=== PATIENT | female | born 1940 | race Caucasian/White ===

== ENCOUNTER 2016-12-01 08:18 | Observation (INO) | payer MEDICARE ==
[2016-12-01] MEDS ORDERED: SODIUM CHLORIDE 0.9% 500 ML IV STA (08:34)
--- NOTE | 2016-12-01 08:36 | ED ---
General Adult HPI - General Chief complaint: Neuro Symptoms/Deficit Stated complaint: lt sided numbness Time Seen by Provider: 12/01/16 08:20 Source: patient, RN notes reviewed Mode of arrival: EMS Limitations: physical limitation - History of Present Illness Initial comments: This is a 75-year-old female has past medical history significant for stroke. Patient comes in today because she says when she woke up both of her legs were numb feeling. Patient states she could feel but they felt different. Patient states she was able to and leg but she felt a little off balance on her feet. Patient states she was able to walk however. Patient denies any upper extremity weakness or numbness patient denies any visual disturbance patient denies any slurred speech. Patient denies any droopiness of her face when she looked in the mirror. Patient denies any chest pain or palpitations per patient denies any difficulty breathing shortness breath per patient denies any recent fever chills or cough. Patient denies abdominal pain patient denies any nausea vomiting diarrhea. Patient denies any recent injury or trauma. - Related Data Home Medications Medication Instructions Recorded Confirmed Cholecalciferol [Vitamin D3] 5,000 unit PO DAILY 11/06/16 12/01/16 Cyanocobalamin [Vitamin B-12] 500 mcg PO DAILY 11/06/16 12/01/16 Pyridoxine [Vitamin B-6] 50 mg PO DAILY 11/06/16 12/01/16 Vit A,C & E/Lutein/Minerals 1 tab PO DAILY 11/06/16 12/01/16 [Ocuvite with Lutein Tablet] Previous Rx's Medication Instructions Recorded Aspirin 325 mg PO DAILY tab 11/09/16 Atorvastatin [Lipitor] 40 mg PO DAILY #30 tab 11/09/16 Carvedilol [Coreg] 6.25 mg PO BID-W/MEALS #60 tab 11/09/16 Famotidine [Pepcid] 20 mg PO BID #60 tab 11/09/16 Lisinopril [Zestril] 5 mg PO DAILY #30 tab 11/09/16 Allergies Allergy/AdvReac Type Severity Reaction Status Date / Time No Known Allergies Allergy Verified 12/01/16 09:00 Review of Systems ROS Statement: Those systems with pertinent positive or pertinent negative responses have been documented in the HPI. ROS Other: All systems not noted in ROS Statement are negative. Past Medical History Past Medical History: Coronary Artery Disease (CAD), CVA/TIA, Hyperlipidemia, Hypertension, Myocardial Infarction ([place]), Osteoarthritis (OA), Vascular Disorder Additional Past Medical History / Comment(s): borderline diabetic, UTI PAST SEPTICEMIA, HIATAL HERNIA, FELL OUT A CHAIR 2 WEEKS AGO HIT BACK OF HEAD ON FLOOR. Last Myocardial Infarction Date:: 1999 History of Any Multi-Drug Resistant Organisms: None Reported Past Surgical History: Adenoidectomy, Cholecystectomy, Coronary Bypass/CABG, Heart Catheterization, Joint Replacement, Tonsillectomy, Tubal Ligation Additional Past Surgical History / Comment(s): TRIPLE VESSEL CABG, RT SHOULDER HEMIARTHROPLASTY, LT CAROTI ENDART,CANDY CATARACTS, EGD/COLONOSCOPY."INJ IN LT EYE " Past Anesthesia/Blood Transfusion Reactions: No Reported Reaction Past Psychological History: No Psychological Hx Reported Additional Psychological History / Comment(s): PT IS ALERT AND INDEPENDANT, RETIRE FROM, [employer](DIETARY DEPT) AND WORKS AT THE [employer]. Smoking Status: Former smoker Past Alcohol Use History: None Reported Additional Past Alcohol Use History / Comment(s): STARTED SMOKING AT AGE 26(1965 ), QUIT 2007- I PPD. Past Drug Use History: None Reported - Past Family History Father Family Medical History: CVA/TIA, Hypertension, Neurologic Disorder (cva) Additional Family Medical History / Comment(s): STROKES RAN ON DAD'S SIDE OF FAMILY Mother Family Medical History: COPD Additional Family Medical History / Comment(s): EMPHYSEMA Sister(s) Family Medical History: Cancer Additional Family Medical History / Comment(s): "FEMALE CANCER" General Exam - General Exam Comments Initial Comments: GENERAL: Patient is well-developed and well-nourished. Patient is nontoxic and well- hydrated and is in no acute distress. ENT: Neck is soft and supple. No significant lymphadenopathy is noted. Oropharynx is clear. Moist mucous membranes. Neck has full range of motion without eliciting any pain. EYES: The sclera were anicteric and conjunctiva were pink and moist. Extraocular movements were intact and pupils were equal round and reactive to light. Eyelids were unremarkable. PULMONARY: Unlabored respirations. Good breath sounds bilaterally. No audible rales rhonchi or wheezing was noted. CARDIOVASCULAR: There is a regular rate and rhythm without any murmurs gallops or rubs. Femoral pulses are equal bilaterally ABDOMEN: Soft and nontender with normal bowel sounds. No palpable organomegaly was noted. There is no palpable pulsatile mass. SKIN: Skin is clear with no lesions or rashes and otherwise unremarkable. NEUROLOGIC: Patient is alert and oriented x3. Cranial nerves II through XII are grossly intact. Motor and sensory are also intact. Normal speech, volume and content. Symmetrical smile. MUSCULOSKELETAL: Normal extremities with adequate strength and full range of motion. No lower extremity swelling or edema. No calf tenderness. LYMPHATICS: No significant lymphadenopathy is noted PSYCHIATRIC: Normal psychiatric evaluation. Limitations: physical limitation Course Vital Signs 12/01/16 12/01/16 08:22 10:03 Temperature 97.3 F L Pulse Rate 61 61 Respiratory 16 18 Rate Blood Pressure 186/73 137/76 O2 Sat by Pulse 97 100 Oximetry Medical Decision Making - Medical Decision Making EKG shows sinus bradycardia 55 bpm. It was 120 QRS is 80 QT interval is 440 QTC is 420 per patient's EKG shows no ST segment elevation or depression or T wave abnormalities are noted Patient has urinary tract infection so I started on Rocephin. I spoke with the patient about her symptoms she continues to feel too weak we stood her up at the bedside and she was very wobbly and felt as though she's been followed. Patient stated she lives alone she does not feel comfortable going home being this unsteady. I spoke with the primary medical care doctor and then I admitted the patient wrote admitting orders - Lab Data Result diagrams: 12/01/16 08:44 12/01/16 08:44 Lab Results 12/01/16 12/01/16 12/01/16 Range/Units 08:44 08:44 08:44 WBC 9.2 (3.8-10.6) k/uL RBC 4.26 (3.80-5.40) m/uL Hgb 13.0 (11.4-16.0) gm/dL Hct 38.8 (34.0-46.0) % MCV 91.1 (80.0-100.0) fL MCH 30.6 (25.0-35.0) pg MCHC 33.6 (31.0-37.0) g/dL RDW 12.7 (11.5-15.5) % Plt Count 223 (150-450) k/uL Neutrophils % 61 % Lymphocytes % 21 % Monocytes % 6 % Eosinophils % 9 % Basophils % 1 % Neutrophils # 5.7 (1.3-7.7) k/uL Lymphocytes # 2.0 (1.0-4.8) k/uL Monocytes # 0.5 (0-1.0) k/uL Eosinophils # 0.8 H (0-0.7) k/uL Basophils # 0.1 (0-0.2) k/uL PT (9.0-12.0) sec INR (<1.1) APTT (22.0-30.0) sec Sodium 145 (137-145) mmol/L Potassium 4.6 (3.5-5.1) mmol/L Chloride 109 H (98-107) mmol/L Carbon Dioxide 22 (22-30) mmol/L Anion Gap 14 mmol/L BUN 32 H (7-17) mg/dL Creatinine 1.14 H (0.52-1.04) mg/dL Est GFR (MDRD) Af Amer 56 (>60 ml/min/1.73 sqM) Est GFR (MDRD) Non-Af 47 (>60 ml/min/1.73 sqM) Glucose 124 H (74-99) mg/dL Calcium 10.5 H (8.4-10.2) mg/dL Total Bilirubin 0.6 (0.2-1.3) mg/dL AST 23 (14-36) U/L ALT 29 (9-52) U/L Alkaline Phosphatase 69 (38-126) U/L Total Creatine Kinase 43 (30-135) U/L CK-MB (CK-2) 0.6 (0.0-2.4) ng/mL CK-MB (CK-2) Rel Index 1.4 Troponin I <0.012 (0.000-0.034) ng/mL Total Protein 7.1 (6.3-8.2) g/dL Albumin 4.1 (3.5-5.0) g/dL Urine Color Urine Appearance (Clear) Urine pH (5.0-8.0) Ur Specific [place] (1.001-1.035) Urine Protein (Negative) Urine Glucose (UA) (Negative) Urine Ketones (Negative) Urine Blood (Negative) Urine Nitrate (Negative) Urine Bilirubin (Negative) Urine Urobilinogen (<2.0) mg/dL Ur Leukocyte Esterase (Negative) Urine WBC (0-5) /hpf Ur Squamous Epith Cells (0-4) /hpf Urine Mucus (None) /hpf 12/01/16 12/01/16 Range/Units 08:44 10:49 WBC (3.8-10.6) k/uL RBC (3.80-5.40) m/uL Hgb (11.4-16.0) gm/dL Hct (34.0-46.0) % MCV (80.0-100.0) fL MCH (25.0-35.0) pg MCHC (31.0-37.0) g/dL RDW (11.5-15.5) % Plt Count (150-450) k/uL Neutrophils % % Lymphocytes % % Monocytes % % Eosinophils % % Basophils % % Neutrophils # (1.3-7.7) k/uL Lymphocytes # (1.0-4.8) k/uL Monocytes # (0-1.0) k/uL Eosinophils # (0-0.7) k/uL Basophils # (0-0.2) k/uL PT 9.9 (9.0-12.0) sec INR 1.0 (<1.1) APTT 23.7 (22.0-30.0) sec Sodium (137-145) mmol/L Potassium (3.5-5.1) mmol/L Chloride (98-107) mmol/L Carbon Dioxide (22-30) mmol/L Anion Gap mmol/L BUN (7-17) mg/dL Creatinine (0.52-1.04) mg/dL Est GFR (MDRD) Af Amer (>60 ml/min/1.73 sqM) Est GFR (MDRD) Non-Af (>60 ml/min/1.73 sqM) Glucose (74-99) mg/dL Calcium (8.4-10.2) mg/dL Total Bilirubin (0.2-1.3) mg/dL AST (14-36) U/L ALT (9-52) U/L Alkaline Phosphatase (38-126) U/L Total Creatine Kinase (30-135) U/L CK-MB (CK-2) (0.0-2.4) ng/mL CK-MB (CK-2) Rel Index Troponin I (0.000-0.034) ng/mL Total Protein (6.3-8.2) g/dL Albumin (3.5-5.0) g/dL Urine Color Light Yellow Urine Appearance Cloudy H (Clear) Urine pH 5.5 (5.0-8.0) Ur Specific [place] 1.012 (1.001-1.035) Urine Protein Trace H (Negative) Urine Glucose (UA) Negative (Negative) Urine Ketones Negative (Negative) Urine Blood Negative (Negative) Urine Nitrate Negative (Negative) Urine Bilirubin Negative (Negative) Urine Urobilinogen <2.0 (<2.0) mg/dL Ur Leukocyte Esterase Large H (Negative) Urine WBC 17 H (0-5) /hpf Ur Squamous Epith Cells 4 (0-4) /hpf Urine Mucus Rare H (None) /hpf Disposition Clinical Impression: Generalized weakness, Urinary tract infection, Unsteady gait Disposition: ADMITTED IP TO THIS [facility] Time of Disposition: 11:49
[2016-12-01 09:07] LABS: Basophils # (A) 0.1 k/uL (0-0.2); Basophils % (A) 1 %; CH 30.6; CHCM 33.7; Eosinophils # (A) 0.8 k/uL (0-0.7); Eosinophils % (A) 9 %; HCT 38.8 % (34.0-46.0); HDW 2.32; Luc % (Auto) 2; Lymphocytes % (A) 21 %; MCH 30.6 pg (25.0-35.0); MCHC 33.6 g/dL (31.0-37.0); MCV 91.1 fL (80.0-100.0); Mean Platelet Volume 7.2; Monocytes # (A) 0.5 k/uL (0-1.0); Monocytes % (A) 6 %; Neutrophils # (A) 5.7 k/uL (1.3-7.7); Neutrophils % (A) 61 %; RBC 4.26 m/uL (3.80-5.40); RDW 12.7 % (11.5-15.5); WBC 9.2 k/uL (3.8-10.6); WBC (Perox) 9.48
[2016-12-01 09:10] LABS: Partial Thromboplastin Time 23.7 sec (22.0-30.0); Prothrombin Time 9.9 sec (9.0-12.0)
[2016-12-01 09:20] LABS: Calcium 10.5 mg/dL (8.4-10.2); Potassium 4.6 mmol/L (3.5-5.1); Total Bilirubin 0.6 mg/dL (0.2-1.3); Total Protein 7.1 g/dL (6.3-8.2)
[2016-12-01 09:34] LABS: Creatine Kinase 43 U/L (30-135)
--- NOTE | 2016-12-01 09:35 | CT ---
EXAMINATION TYPE: CT brain wo con DATE OF EXAM: 12/01/2016 9:27 AM COMPARISON: NONE INDICATION: bilateral leg numbness, recent CVA DLP: 1072.3 mGycm, Automated exposure control for dose reduction was used. CONTRAST: None. CT of the brain is performed utilizing 3 mm thick sections through the posterior fossa and 3 mm thick sections through the remaining calvarium. Study is performed within 24 hours of arrival to the hosp ital. No abnormal hyperdensity is present to suggest an acute intracranial hemorrhage. No mass lesion is evident. No acute infarcts are evident. Periventricular white matter hypodensity is present, likely on the bas is of microvascular ischemic change. Right frontal lobe subcortical infarct, old but appears to been interval change from 11/06/2016. Ventricles and sulci are appropriate for the patient age. Paranasal sinuses and mastoid air cells within the [id number] are clear. IMPRESSIONS: 1. Chronic periventricular white matter ischemic changes. 2. Old appearing subcortical infarct right frontal lobe appears been interval finding from 11/06/2016.
[2016-12-01 09:47] LABS: Creatine Kinase MB 0.6 ng/mL (0.0-2.4); Troponin I <0.012 ng/mL (0.000-0.034)
--- NOTE | 2016-12-01 10:20 | XR ---
EXAMINATION TYPE: XR chest 2V DATE OF EXAM: 12/01/2016 9:53 AM COMPARISON: Prior chest x-ray to October 2016 HISTORY: Altered mental status, cerebrovascular accident, dizziness TECHNIQUE: Frontal and lateral views of the chest are obtained. FINDINGS: There is no focal air space opacity, pleural effusion, or pneumothorax seen. The cardiac silhouette size is within normal limits. The patient is post median sternotomy. Dominant lung volum e may be indicative of underlying COPD. There are coronary artery calcifications and postoperative ch anges to the right humerus status post shoulder arthroplasty on the right. There are overlying cardia c leads and the patient is rotated. Exam is expiratory. The osseous structures are intact. IMPRESSION: No acute cardiopulmonary process.
[2016-12-01 11:23] LABS: Appearance,Urine Cloudy (Clear); Bilirubin,Urine Negative (Negative); Glucose,Urine (UA) Negative (Negative); Ketones,Urine Negative (Negative); Leukocyte Esterase,Urine Large (Negative); Mucus,Urine Rare /hpf; Nitrite,Urine Negative (Negative); PH, Urine 5.5 (5.0-8.0); Particle Count 52785; Protein,Urine Trace (Negative); Specific Gravity,Urine 1.012 (1.001-1.035); Squamous Epithelial Cell,Urine 4 /hpf (0-4); UA Billing (MACRO vs. MICRO) MICRO; Urobilinogen,Urine <2.0 mg/dL (<2.0); WBC,Urine 17 /hpf (0-5)
[2016-12-01] MEDS ORDERED: SODIUM CHLORIDE 0.9% 1,000 ML IV ONE (11:51)
[2016-12-01] MEDS ORDERED: LISINOPRIL 5 MG TAB PO SCH (13:45)
[2016-12-01] MEDS: ALPRAZolam 0.25 MG TAB PO SCH ×3 (14:42→20:19)
[2016-12-01] MEDS: CARVEDILOL 6.25 MG TAB PO SCH ×2 (14:42→20:18)
[2016-12-01] MEDS ORDERED: LISINOPRIL 5 MG TAB PO STA (16:22)
[2016-12-01] MEDS ORDERED: hydrALAZINE HCL 20 MG/ML 1 ML VIAL IVP PRN (16:24)
--- NOTE | 2016-12-01 16:25 | P.HPIM ---
History of Present Illness H&P Date: 12/01/16 Chief Complaint: Bilateral lower extremity weakness This is a pleasant 75 year old female patient of Dr Stapleton, with prior history if Hypertension, CAD with prior CABG, IGT, prior CVa right side hemiparesis in 1998 requiring left carotid endarterectomy. Patient had recent hospitalization October 2016 for acute left-sided CVA. At that time, patient had taken herself off all her medication for the past year and had not been following up with her physician. She was seen in consultation by Dr. Jon. Patient was discharged with very slight left arm and left leg weakness. MRI revealed acute area of infarct involving the right frontal lobe and scattered small foci of infarction in the right hemisphere suggesting possibility of cardioembolic stroke. Carotid ultrasound revealed left carotid stenosis of 50-69%. Echocardiogram EF 55-60%. GUERITA was performed that showed mildly dilated left atrium with normal left atrial appendage with no thrombus. Mild to moderate atherosclerotic changes in the descending thoracic aorta mild mitral and trace pulmonic regurgitation. No evidence of shunting across the interatrial atrial septum. Patient was discharged home. Patient now presents to [facility] emergency center complaining of fever and chills yesterday. She is complaining of her legs being weak and unable to move them. She states she got up to the bathroom this morning and she could hardly move. She states she had to hold onto the wall and when she got into the bathroom she had a hard time getting up off the toilet. She ended up walking out into the living room with difficulty and sat down. She tried to stand to recheck weakness in her leg and it was still very weak and she came into [facility] emergency center. Patient does state that she has been very anxious that she spent home as she is afraid that she will have a worsening stroke and no one will find her. She denies having any nausea vomiting, chest pain shortness of breath cough. She states her appetite has not been good but she has not had any weight loss. She denies any frequency of urination or change in the color of her urination burning or pain with urination. She states she has also had loss of bowel control but her urine control is fine. She states she is having headaches since the stroke in October but has never had this before. She denies any problems with her speech, swallowing, arms. Patient was placed on the observation unit and consult with Dr. Jon requested. Patient does have an appointment with Dr. Jon on . Urinalysis was cloudy, protein trace, leukoesterase large, WBC 17. Review of Systems All systems: negative Constitutional: Denies chills, Denies fever Eyes: denies blurred vision, denies pain Ears, nose, mouth and throat: Denies headache, Denies sore throat Cardiovascular: Denies chest pain, Denies shortness of breath Respiratory: Denies cough Gastrointestinal: Denies abdominal pain, Denies diarrhea, Denies nausea, Denies vomiting Genitourinary: Denies dysuria, Denies hematuria, Denies urgency, Denies urinary frequency Musculoskeletal: Denies myalgias Integumentary: Denies pruritus, Denies rash Neurological: Reports weakness, Denies numbness Psychiatric: Reports anxiety, Denies depression Endocrine: Denies fatigue, Denies weight change Past Medical History Past Medical History: Coronary Artery Disease (CAD), CVA/TIA, Hyperlipidemia, Hypertension, Myocardial Infarction ([place]), Osteoarthritis (OA), Vascular Disorder Additional Past Medical History / Comment(s): borderline diabetic, UTI PAST SEPTICEMIA, HIATAL HERNIA, FELL OUT A CHAIR 2 WEEKS AGO HIT BACK OF HEAD ON FLOOR. Last Myocardial Infarction Date:: 1999 History of Any Multi-Drug Resistant Organisms: None Reported Past Surgical History: Adenoidectomy, Cholecystectomy, Coronary Bypass/CABG, Heart Catheterization, Joint Replacement, Tonsillectomy, Tubal Ligation Additional Past Surgical History / Comment(s): TRIPLE VESSEL CABG, RT SHOULDER HEMIARTHROPLASTY, LT CAROTI ENDART,CANDY CATARACTS, EGD/COLONOSCOPY."INJ IN LT EYE " Past Anesthesia/Blood Transfusion Reactions: No Reported Reaction Past Psychological History: No Psychological Hx Reported Additional Psychological History / Comment(s): PT IS ALERT AND INDEPENDANT, RETIRE FROM, [employer]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 Smoking Status: Former smoker Past Alcohol Use History: None Reported Additional Past Alcohol Use History / Comment(s): STARTED SMOKING AT AGE 26(1965 ), QUIT 2006- I PPD. Past Drug Use History: None Reported - Past Family History Father Family Medical History: CVA/TIA, Hypertension, Neurologic Disorder (cva) Additional Family Medical History / Comment(s): STROKES RAN ON DAD'S SIDE OF FAMILY Mother Family Medical History: COPD Additional Family Medical History / Comment(s): EMPHYSEMA Sister(s) Family Medical History: Cancer Additional Family Medical History / Comment(s): "FEMALE CANCER" Medications and Allergies Home Medications Medication Instructions Recorded Confirmed Type Cholecalciferol [Vitamin D3] 5,000 unit PO DAILY 11/06/16 12/01/16 History Cyanocobalamin [Vitamin B-12] 500 mcg PO DAILY 11/06/16 12/01/16 History Pyridoxine [Vitamin B-6] 50 mg PO DAILY 11/06/16 12/01/16 History Vit A,C & E/Lutein/Minerals 1 tab PO DAILY 11/06/16 12/01/16 History [Ocuvite with Lutein Tablet] Allergies Allergy/AdvReac Type Severity Reaction Status Date / Time No Known Allergies Allergy Verified 12/01/16 09:00 Physical Exam Vitals: Vital Signs Temp Pulse Resp BP Pulse Ox 12/01/16 10:03 61 18 137/76 100 12/01/16 08:22 97.3 F L 61 16 186/73 97 Intake and Output 11/30/16 12/01/16 12/01/16 22:59 06:59 14:59 Other: Weight 68.039 kg Patient Weight 12/02/16 06:59 Weight 68.039 kg Gen: This is a 75-year-old female. She is sitting on the stretcher in the emergency center and appears to be in no acute distress. HEENT: Head is atraumatic, normocephalic. Pupils equal, round. Sclerae is anicteric. NECK: Supple. No JVD. No lymphadenopathy. No thyromegaly. LUNGS: Clear to auscultation. No wheezes or rhonchi. No intercostal retractions. HEART: Regular rate and rhythm. No murmur. ABDOMEN: Soft. Bowel sounds are present. No masses. No tenderness. EXTREMITIES: No pedal edema. No calf tenderness. NEUROLOGICAL: Patient is awake, alert and oriented x3. Cranial nerves 2 through 12 are grossly intact. Results CBC & Chem 7: 12/01/16 08:44 12/01/16 08:44 Labs: Abnormal Lab Results - Last 24 Hours (Table) 12/01/16 12/01/16 12/01/16 Range/Units 08:44 08:44 10:49 Eosinophils # 0.8 H (0-0.7) k/uL Chloride 109 H (98-107) mmol/L BUN 32 H (7-17) mg/dL Creatinine 1.14 H (0.52-1.04) mg/dL Glucose 124 H (74-99) mg/dL Calcium 10.5 H (8.4-10.2) mg/dL Urine Appearance Cloudy H (Clear) Urine Protein Trace H (Negative) Ur Leukocyte Esterase Large H (Negative) Urine WBC 17 H (0-5) /hpf Urine Mucus Rare H (None) /hpf Thrombosis Risk Factor Assmnt - DVT/VTE Prophylaxis DVT/VTE Prophylaxis: Pharmacologic Prophylaxis ordered Assessment and Plan Plan: 1. Bilateral lower extremity weakness with loss of bowel control, fever and chills. Patient placed in the observation unit. Consult with Dr. Jon. Continue neuro checks. 2. Recent acute CVA with history or previous CVA. Continue aspirin 325 mg daily and Lipitor 40 mg daily. 2. CAD with prior CABG 3 vessel disease in 1999, patient will be started on low dose beta jose and statins. fasting lipid panel obtained. 3. 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 4. Generalized anxiety disorder most likely contributing to lower extremity weakness as patient has fear of having stroke and not being found at home as she lives alone. Xanax 0.25 mg scheduled. Patient is planning to get [employer] at home. 5. Hypertensive cardiovascular disease, uncontrolled. Continue Coreg 6.25 mg twice daily. Lisinopril will be increased from 5 mg daily to 10 mg daily, hydralazine 10 mg IV push every 6 hours as needed 6. B6 supplementation, patient will be monitored for b6 toxicity, paresthesias and numbness identified peripherally. 7. CKD 3. 8. BMI 25 9. Hypercalcemia. Intact parathyroid hormone normal. GI prophylaxis with pepcid DVT prophylaxis with lovenox and scd. Discharge plan: Home with [facility] Patient placed on the observation unit. Impression and plan of care have been directed as dictated by the signing physician. Chandrika Helton nurse practitioner acting as scribe for signing physician. Cc: Dr. Kapil Stapleton Time with Patient: Greater than 30
[2016-12-01] MEDS ORDERED: ACETAMINOPHEN TAB 325 MG TAB PO PRN (16:27)
--- NOTE | 2016-12-01 19:06 | P.CNNES ---
History of Present Illness Consult date: 12/01/16 Reason for Consult: Patient with unsteady gait and falls. History of Present Illness: This patient is a 75-year-old right-handed white female who was recently seen in October 2016 for acute right frontal lobe stroke. She underwent an extensive evaluation for her stroke as she had evidence on MRI of a large right frontal lobe infarct with small scattered acute ischemic changes in the right hemisphere. She was seen by cardiology and underwent a GUERITA procedure which revealed only mild dilation of the left atrium with normal left appendage. No evidence of thrombus or PFO. Patient was placed on aspirin therapy and was discharged. She was making good recovery until the last week when she has been having low-grade fever. She states that on the day of admission she tried to stand and ambulate to the bathroom and felt very weak in her legs. She was brought into the emergency room at [facility] for further evaluation. She was seen in the ER by Dr. Castillo. She was sent for a computed tomography scan of the brain which revealed chronic periventricular white matter ischemic changes. There was an old infarct in the right frontal lobe consistent with her history of recent stroke. No other acute changes were noted. Laboratory testing revealed her to have evidence of a urinary tract infection as well as dehydration. She was started on antibiotic therapy and admitted to the hospital. Since admission patient has noted improvement with her leg weakness. She states she was able to ambulate in her room without any difficulty today. She has been concerned about her recent stroke but has been advised by cardiology that they found no evidence for cardioembolic stroke in her history or exam findings. The patient does suffer from anxiety disorder as well. She has been using Xanax for management. She has been anxious about her stroke diagnosis and also may be causing increased stress for her. We have recommended that she continue treatment of the underlying urinary tract infection. Hopefully this will show more improvement with her muscle weakness and generalized malaise. She has a history of previous UTI a few years ago which produce similar symptoms. The patient is now admitted and neurology has been consulted for further evaluation and recommendations. Review of Systems Constitutional: Denies chills, Denies fever Eyes: denies blurred vision, denies pain Ears, nose, mouth and throat: Denies headache, Denies sore throat Cardiovascular: Denies chest pain, Denies shortness of breath Respiratory: Denies cough Gastrointestinal: Denies abdominal pain, Denies diarrhea, Denies nausea, Denies vomiting Genitourinary: Denies dysuria, Denies hematuria Musculoskeletal: Denies myalgias Integumentary: Denies pruritus, Denies rash Neurological: Denies numbness, Denies weakness Psychiatric: Denies anxiety, Denies depression Endocrine: Denies fatigue, Denies weight change Past Medical History Past Medical History: Coronary Artery Disease (CAD), Chest Pain / Angina, CVA/ TIA, Hyperlipidemia, Hypertension, Myocardial Infarction ([place]), Osteoarthritis ( OA), Renal Disease, Vascular Disorder Additional Past Medical History / Comment(s): CVAs with last CVA being 11/06/16, diet controlled diabetic, "silent" [place], UTI PAST SEPTICEMIA, HIATAL HERNIA, CKD stage III. Last Myocardial Infarction Date:: unkn History of Any Multi-Drug Resistant Organisms: None Reported Past Surgical History: Adenoidectomy, Cholecystectomy, Coronary Bypass/CABG, Heart Catheterization, Joint Replacement, Tonsillectomy, Tubal Ligation Additional Past Surgical History / Comment(s): GUERITA, TRIPLE VESSEL CABG, RT SHOULDER HEMIARTHROPLASTY, LT CAROTI ENDART,CANDY CATARACTS with lens implants, EGD/COLONOSCOPY. Past Anesthesia/Blood Transfusion Reactions: No Reported Reaction Past Psychological History: No Psychological Hx Reported Additional Psychological History / Comment(s): PT IS ALERT AND INDEPENDANT, RETIRE FROM, [employer](DIETARY DEPT) AND WORKS AT THE [employer]. Smoking Status: Former smoker Past Alcohol Use History: None Reported Additional Past Alcohol Use History / Comment(s): STARTED SMOKING AT AGE 26(1966 ), QUIT 2006- I PPD. Past Drug Use History: None Reported - Past Family History Father Family Medical History: CVA/TIA, Hypertension, Neurologic Disorder Additional Family Medical History / Comment(s): Father of a CVA at the age of 49 yrs. STROKES RAN ON DAD'S SIDE OF FAMILY Mother Family Medical History: COPD Additional Family Medical History / Comment(s): EMPHYSEMA Sister(s) Family Medical History: Cancer Additional Family Medical History / Comment(s): "FEMALE CANCER" Medications and Allergies Home Medications Medication Instructions Recorded Confirmed Type Cholecalciferol [Vitamin D3] 5,000 unit PO DAILY 11/06/16 12/01/16 History Cyanocobalamin [Vitamin B-12] 500 mcg PO DAILY 11/06/16 12/01/16 History Pyridoxine [Vitamin B-6] 50 mg PO DAILY 11/06/16 12/01/16 History Vit A,C & E/Lutein/Minerals 1 tab PO DAILY 11/06/16 12/01/16 History [Ocuvite with Lutein Tablet] Allergies Allergy/AdvReac Type Severity Reaction Status Date / Time No Known Allergies Allergy Verified 12/01/16 09:00 Physical Examination - Vital Signs Vital Signs: Vital Signs Temp Pulse Pulse Resp BP BP Pulse Ox 12/01/16 15:40 75 16 12/01/16 14:54 98.1 F 75 18 192/85 97 12/01/16 12:40 64 18 178/76 98 Intake and Output 12/01/16 12/01/16 12/01/16 06:59 14:59 22:59 Other: Voiding Method Toilet Weight 69.5 kg Patient Weight 12/02/16 06:59 Weight 69.5 kg - Constitutional General appearance: average body habitus, cooperative - EENT EENT: PERRL, mucous membranes moist - Respiratory Respiratory: lungs clear, normal breath sounds - Cardiovascular Cardiovascular: regular rate, normal S1, normal S2 Extremities: no peripheral edema bilaterally - Gastrointestinal Gastrointestinal: normoactive bowel sounds - Integumentary Integumentary: normal - Neurologic Cranial nerve examination: PERRL, EOMI, VFF, V1/V2/V3 grossly intact, face symmetric, tongue midline, intact gag reflex, intact corneal reflex, normal palatal elevation Speech examination: intact Sensorimotor examination: intact Motor examination - right side: 5/5: biceps, triceps, wrist flexion, wrist extension, mortar maker, hip flexors, knee extensors, dorsiflexion, toe extension (EHL) , plantarflexion Motor examination - left side: 4/5: biceps, triceps, wrist flexion, wrist extension, mortar maker, hip flexors, 5/5: knee extensors, dorsiflexion, toe extension ( EHL), plantarflexion Detailed sensory examination: intact Reflex and gait examination: intact Reflexes: 1+: ankle, bicep, knee, tricep - Musculoskeletal Musculoskeletal: no pain - Psychiatric Psychiatric: mood/affect appropriate, cooperative Results - Laboratory Findings CBC and BMP: 12/01/16 08:44 12/01/16 08:44 Assessment and Plan (1) Chronic arterial ischemic stroke Status: Acute Code(s): I69.30 - UNSPECIFIED SEQUELAE OF CEREBRAL INFARCTION (2) Unsteady gait Status: Acute Code(s): R26.81 - UNSTEADINESS ON FEET (3) Urinary tract infection Status: Acute Code(s): N39.0 - URINARY TRACT INFECTION, SITE NOT SPECIFIED (4) History of coronary artery bypass graft Status: Acute Code(s): Z95.1 - PRESENCE OF AORTOCORONARY BYPASS GRAFT Plan: This patient is a 75-year-old right-handed white female admitted to Hospital with symptoms of bilateral leg weakness and low-grade fever. She was recently hospitalized for acute stroke in October 2016. She underwent MRI of the brain which revealed an acute area of infarction involving the right frontal lobe. There was small foci of ischemic changes noted in the right hemisphere as well. She was subsequently admitted to hospital and underwent a complete stroke evaluation. She underwent GUERITA procedure by cardiology which came back negative for any abnormalities. She was discharged on aspirin therapy. She has been nervous and anxious about her recent stroke. She has been having low-grade temperature for the last few days and was brought into the emergency room for further evaluation. She also complained of leg weakness. In the ER she underwent a repeat computed tomography scan of the brain which came back negative for any acute changes. Laboratory testing reveals her to have evidence of urinary tract infection for which she is been treated with antibiotics and admitted to Hospital. Her neurological examination at this time is nonfocal. Since admission to hospital she has shown improvement with leg strength. We have recommended that she continue treatment of the underlying urinary tract infection and dehydration which should improve her overall condition. She has no evidence of new or recurrent stroke at this time. She is to continue on aspirin therapy. She is reluctant to start on Plavix at this time and we will continue close monitoring. She will be following up with cardiology later this month. We will continue close neurological follow-up for the patient during this admission. Her overall prognosis remains guarded. Time with Patient: Greater than 30
[2016-12-01] MEDS: FAMOTIDINE 20 MG TAB PO SCH (20:18)
[2016-12-02 08:20] VITALS: BP 142/69; PULSE 51; RESP 18; TEMP 98
[2016-12-02] MEDS: ASPIRIN 325 MG TAB PO SCH ×2 (08:34→09:41)
[2016-12-02] MEDS: FAMOTIDINE 20 MG TAB PO SCH (08:34)
[2016-12-02] MEDS: ALPRAZolam 0.25 MG TAB PO SCH (08:34)
[2016-12-02] MEDS: CARVEDILOL 6.25 MG TAB PO SCH (08:34)
[2016-12-02] MEDS ORDERED: LISINOPRIL 10 MG TAB PO SCH (09:00)
[2016-12-02] MEDS ORDERED: ATORVASTATIN 40 MG TAB PO SCH (09:00)
[2016-12-02] MEDS ORDERED: CHOLECALCIFEROL 1,000 UNIT TAB PO SCH (12:00)
[2016-12-02] MEDS ORDERED: PYRIDOXINE 50 MG TAB PO SCH (12:00)
[2016-12-02] MEDS ORDERED: VIT A,C & E-LUTEIN-MINERALS 1 EACH TAB PO SCH (12:00)
[2016-12-02] MEDS ORDERED: CYANOCOBALAMIN 500 MCG TAB PO SCH (12:00)
--- NOTE | 2016-12-02 16:42 | P.PN ---
Subjective This patient is a 75 year old female with recent history of frontal lobe stroke. She was admitted to hospital for evaluation of leg weakness and urinary tract infection. The patient has been started on antibiotic therapy for treatment of urinary tract infection. She has noted improvement with her muscle strength in the lower extremities. She is scheduled to be seen in the cardiology clinic at the end of this month. We have reviewed her most recent MRI results of the brain with the patient in detail. She does have history of recent frontal lobe stroke. There are other areas of acute ischemia that was further evaluated for possibility of cardioembolic stroke. She was seen by cardiology on her last admission and underwent a GUERITA procedure which came back negative for any evidence of PFO or atrial thrombus. She has been taking aspirin on a daily basis. Repeat computed tomography scan of the brain done yesterday fail to reveal any new changes. Patient is being considered for possible discharge to home later today. Her overall prognosis at this time remains guarded. Objective - Vital Signs Vital signs: Vital Signs Temp 98.0 F 12/02/16 08:00 Pulse 51 L 12/02/16 12:00 Resp 18 12/02/16 12:00 BP 142/69 12/02/16 08:00 Pulse Ox 97 12/02/16 08:00 Intake & Output 12/01/16 12/02/16 12/02/16 18:59 06:59 18:59 Intake Total 680 Balance 680 Weight 69.5 kg Intake: Oral 680 Other: Voiding Method Toilet Toilet Toilet # Voids 2 - Exam Physical examination: PHYSICAL EXAMINATION: Patient is resting comfortably in bed. VITAL SIGNS: Blood pressure is [142/69]. Heart rate is [51]. Respiration is [18] . Temperature is [98.0]. HEENT: Head is atraumatic, neck is supple, there were no carotid bruits. CHEST: Lungs are clear to auscultation and percussion. CARDIAC: S1, S2 normal rate and rhythm. There is no murmur. ABDOMEN: Soft and nontender. Bowel sounds are present. EXTREMITIES: There is no pedal edema. Peripheral pulses are present. Neurological examination: Patient has nonfocal neurological exam. There is slight left upper extremity weakness on motor strength testing. Reflexes are symmetric. Gait and station unremarkable. - Labs CBC & Chem 7: 12/01/16 08:44 12/01/16 08:44 Labs: Microbiology - Last 24 Hours (Table) 12/01/16 17:17 Urine Culture - Preliminary Urine,Voided Assessment and Plan (1) Chronic arterial ischemic stroke Status: Acute Code(s): I69.30 - UNSPECIFIED SEQUELAE OF CEREBRAL INFARCTION (2) Unsteady gait Status: Acute Code(s): R26.81 - UNSTEADINESS ON FEET (3) Urinary tract infection Status: Acute Code(s): N39.0 - URINARY TRACT INFECTION, SITE NOT SPECIFIED (4) History of coronary artery bypass graft Status: Acute Code(s): Z95.1 - PRESENCE OF AORTOCORONARY BYPASS GRAFT Plan: This patient is a 75-year-old right-handed white female admitted to Hospital with symptoms of bilateral leg weakness and low-grade fever. She was recently hospitalized for acute stroke in October 2016. She underwent MRI of the brain which revealed an acute area of infarction involving the right frontal lobe. There was small foci of ischemic changes noted in the right hemisphere as well. She was subsequently admitted to hospital and underwent a complete stroke evaluation. She underwent GUERITA procedure by cardiology which came back negative for any abnormalities. She was discharged on aspirin therapy. She has been nervous and anxious about her recent stroke. She has been having low-grade temperature for the last few days and was brought into the emergency room for further evaluation. She also complained of leg weakness. In the ER she underwent a repeat computed tomography scan of the brain which came back negative for any acute changes. Laboratory testing reveals her to have evidence of urinary tract infection for which she is been treated with antibiotics and admitted to Hospital. Her neurological examination at this time is nonfocal. Since admission to hospital she has shown improvement with leg strength. We have recommended that she continue treatment of the underlying urinary tract infection and dehydration which should improve her overall condition. She has no evidence of new or recurrent stroke at this time. She is to continue on aspirin therapy. She is reluctant to start on Plavix at this time and we will continue close monitoring. She will be following up with cardiology later this month. Patient is showing improvement today in terms of her lower extremity strength. She is being considered for discharge to home today. She may follow-up in the outpatient neurology clinic as scheduled. We will discuss further treatment options with her at that appointment. We will continue close neurological follow-up for the patient during this admission. Her overall prognosis remains guarded.
[2016-12-03] MEDS ORDERED: FAMOTIDINE 20 MG TAB PO SCH (09:00)
--- NOTE | 2016-12-03 10:26 | P.DS ---
Providers Date of admission: 12/01/16 11:51 Expected date of discharge: 12/02/16 Attending physician: Ken Craig Consults: 12/01/16 11:54 Consult Physician Stat Consulting Provider: Natty Jon Consult Reason/Comments: Generalized weakness, unsteady gait Do you want consulting provider notified?: Yes Primary care physician: Kapil Stapleton [facility] Course: This is a pleasant 75 year old female patient of Dr Stapleton, with prior history if Hypertension, CAD with prior CABG, IGT, prior CVa right side hemiparesis in 1998 requiring left carotid endarterectomy. Patient had recent hospitalization October 2016 for acute left-sided CVA. At that time, patient had taken herself off all her medication for the past year and had not been following up with her physician. She was seen in consultation by Dr. Jon. Patient was discharged with very slight left arm and left leg weakness. MRI revealed acute area of infarct involving the right frontal lobe and scattered small foci of infarction in the right hemisphere suggesting possibility of cardioembolic stroke. Carotid ultrasound revealed left carotid stenosis of 50-69%. Echocardiogram EF 55-60%. GUERITA was performed that showed mildly dilated left atrium with normal left atrial appendage with no thrombus. Mild to moderate atherosclerotic changes in the descending thoracic aorta mild mitral and trace pulmonic regurgitation. No evidence of shunting across the interatrial atrial septum. Patient was discharged home. Patient now presents to [facility] emergency center complaining of fever and chills yesterday. She is complaining of her legs being weak and unable to move them. She states she got up to the bathroom this morning and she could hardly move. She states she had to hold onto the wall and when she got into the bathroom she had a hard time getting up off the toilet. She ended up walking out into the living room with difficulty and sat down. She tried to stand to recheck weakness in her leg and it was still very weak and she came into [facility] emergency center. Patient does state that she has been very anxious that she spent home as she is afraid that she will have a worsening stroke and no one will find her. She denies having any nausea vomiting, chest pain shortness of breath cough. She states her appetite has not been good but she has not had any weight loss. She denies any frequency of urination or change in the color of her urination burning or pain with urination. She states she has also had loss of bowel control but her urine control is fine. She states she is having headaches since the stroke in October but has never had this before. She denies any problems with her speech, swallowing, arms. Patient was placed on the observation unit and consult with Dr. Jon requested. Patient does have an appointment with Dr. Jon on . Urinalysis was cloudy, protein trace, leukoesterase large, WBC 17. Patient was seen in consultation by Dr. Jon. Patient did have improvement of her lower extremity leg strength Dr. Jon did discuss Plavix with the patient and she was reluctant. Patient follow-up with cardiology later this month as planned. Patient was discharged home today in stable condition. Discharge diagnoses: 1. Bilateral lower extremity weakness with loss of bowel control, fever and chills. 2. Recent acute CVA with history or previous CVA. 2. CAD with prior CABG 3 vessel disease in 1999. 3. 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 4. Generalized anxiety disorder most likely contributing to lower extremity weakness as patient has fear of having stroke and not being found at home as she lives alone. 5. Hypertensive cardiovascular disease, uncontrolled. Continue Coreg 6.25 mg twice daily. Lisinopril will be increased from 5 mg daily to 10 mg daily. 6. B6 supplementation 7. CKD 3. 8. BMI 25 9. Hypercalcemia. Intact parathyroid hormone normal. 10. Asymptomatic bacteriuria with negative urine culture Discharge plan: Home with [facility] Impression and plan of care have been directed as dictated by the signing physician. Chandrika Helton nurse practitioner acting as scribe for signing physician. Cc: Dr. Kapil Stapleton Patient Condition at Discharge: Good Plan - Discharge Summary New Discharge Prescriptions: ALPRAZolam [Xanax] 0.25 mg PO TID PRN #20 tab PRN Reason: Anxiety Lisinopril [Zestril] 10 mg PO DAILY #30 tab Nitrofurantoin Monohyd/M-Cryst [Macrobid] 100 mg PO Q12HR #10 cap Discharge Medication List Cholecalciferol [Vitamin D3] 5,000 unit PO DAILY 11/06/16 [History] Cyanocobalamin [Vitamin B-12] 500 mcg PO DAILY 11/06/16 [History] Pyridoxine [Vitamin B-6] 50 mg PO DAILY 11/06/16 [History] Vit A,C & E/Lutein/Minerals [Ocuvite with Lutein Tablet] 1 tab PO DAILY [History] Aspirin 325 mg PO DAILY tab 11/09/16 [Rx] Atorvastatin [Lipitor] 40 mg PO DAILY #30 tab 11/09/16 [Rx] Carvedilol [Coreg] 6.25 mg PO BID-W/MEALS #60 tab 11/09/16 [Rx] Famotidine [Pepcid] 20 mg PO BID #60 tab 11/09/16 [Rx] ALPRAZolam [Xanax] 0.25 mg PO TID PRN #20 tab 12/02/16 [Rx] Lisinopril [Zestril] 10 mg PO DAILY #30 tab 12/02/16 [Rx] Nitrofurantoin Monohyd/M-Cryst [Macrobid] 100 mg PO Q12HR #10 cap 12/02/16 [Rx] Follow up Appointment(s)/Referral(s): Natty Jon MD [STAFF PHYSICIAN] - 1 Week [facility], [NON-STAFF] - As Needed Kapil Stapleton MD [Primary Care Provider] - 1 Week Discharge Disposition: HOME WITH HOME HEALTH SERVICES
== END 2016-12-02 15:52 | disposition home health service (06) ==
LOC: EC 08:18 → 3OBS 11:51
PROVIDERS: ADMIT Internal Medicine; ATTEND Internal Medicine
DX: I69.351 Hemiplegia and hemiparesis following cerebral infarction affecting right dominant side (principal); R26.81 Unsteadiness on feet; R15.9 Full incontinence of feces; R73.02 Impaired glucose tolerance (oral); F41.1 Generalized anxiety disorder; I13.10 Hypertensive heart and chronic kidney disease without heart failure, with stage 1 through stage 4 chronic kidney disease, or unspecified chronic kidney disease; N18.3 Chronic kidney disease, stage 3 (moderate); E83.52 Hypercalcemia; N39.0 Urinary tract infection, site not specified; I65.22 Occlusion and stenosis of left carotid artery; I25.10 Atherosclerotic heart disease of native coronary artery without angina pectoris; E86.0 Dehydration; E78.5 Hyperlipidemia, unspecified; R50.9 Fever, unspecified; R00.1 Bradycardia, unspecified; I25.2 Old myocardial infarction; M19.90 Unspecified osteoarthritis, unspecified site; Z87.440 Personal history of urinary (tract) infections; Z87.891 Personal history of nicotine dependence; Z96.611 Presence of right artificial shoulder joint; Z95.1 Presence of aortocoronary bypass graft; Z79.82 Long term (current) use of aspirin; Z79.899 Other long term (current) drug therapy; Z82.3 Family history of stroke; Z82.5 Family history of asthma and other chronic lower respiratory diseases
CPT/HCPCS: 99285; 96365; 36415; 93005; 80053; 82550; 82553; 84484; 85025; 85610; 85730; 81001; 87086; 71020; 70450; G0378 ×2; J0696

== ENCOUNTER → 2016-12-21 | Outpatient (CLI) | payer MEDICARE ==
[2016-12-21 10:13] LABS: Calcium 10.3 mg/dL (8.4-10.2); Potassium 4.8 mmol/L (3.5-5.1); Total Bilirubin 0.5 mg/dL (0.2-1.3); Total Protein 7.3 g/dL (6.3-8.2)
== END | disposition home or self-care (01) ==
LOC: LABWHC1 09:30
PROVIDERS: ATTEND Internal Medicine Interventional Cardiology
DX: E78.2 Mixed hyperlipidemia (principal)
CPT/HCPCS: 36415; 80053; 80061

== ENCOUNTER 2017-01-20 06:17 | Day surgery (SDC) | payer MEDICARE ==
[2017-01-19 08:58] VITALS: BMI 25.0
[2017-01-20] MEDS ORDERED: ALPRAZolam 0.5 MG TAB PO PRN (06:26)
[2017-01-20] MEDS ORDERED: ATORVASTATIN 80 MG TAB PO STA (06:26)
[2017-01-20] MEDS ORDERED: ALPRAZolam 0.25 MG TAB PO PRN ×2 (06:26→08:50)
[2017-01-20] MEDS ORDERED: NITROGLYCERIN SL TABS 0.4 MG TAB SUBLINGUAL PRN ×2 (06:26→08:49)
[2017-01-20] MEDS ORDERED: SODIUM CHLORIDE 0.9% 1,000 ML in EMPTY BAG 1 BAG IV ONE (06:26)
[2017-01-20] MEDS ORDERED: ASPIRIN 325 MG TAB PO STA (06:26)
[2017-01-20 06:57] VITALS: RESP 16
[2017-01-20 07:02] LABS: Basophils # (A) 0.1 k/uL (0-0.2); Basophils % (A) 1 %; CHCM 32.9; Eosinophils # (A) 0.7 k/uL (0-0.7); Eosinophils % (A) 7 %; HCT 36.5 % (34.0-46.0); HDW 2.43; HGB 11.8 gm/dL (11.4-16.0); Luc # (Auto) 0.27; Luc % (Auto) 3; Lymphocytes # (A) 2.4 k/uL (1.0-4.8); Lymphocytes % (A) 25 %; MCH 29.8 pg (25.0-35.0); MCHC 32.4 g/dL (31.0-37.0); MCV 91.9 fL (80.0-100.0); Mean Platelet Volume 6.9; Monocytes # (A) 0.6 k/uL (0-1.0); Monocytes % (A) 6 %; Neutrophils # (A) 5.7 k/uL (1.3-7.7); Neutrophils % (A) 59 %; RBC 3.97 m/uL (3.80-5.40); RDW 13.5 % (11.5-15.5); WBC 9.6 k/uL (3.8-10.6); WBC (Perox) 9.65
[2017-01-20] MEDS ORDERED: diphenhydrAMINE 50 MG/ML 1 ML VIAL ONE (07:13)
[2017-01-20] MEDS ORDERED: fentaNYL (PF) 50 MCG/ML 2 ML AMP ONE (07:13)
[2017-01-20] MEDS ORDERED: LIDOCAINE 2% INJ 20 MG/ML (20 ML MDV) ONE (07:13)
[2017-01-20 07:16] LABS: Calcium 10.7 mg/dL (8.4-10.2); Potassium 4.5 mmol/L (3.5-5.1)
[2017-01-20] MEDS ORDERED: fentaNYL (PF) 50 MCG/ML 2 ML AMP IV ONE (07:58)
[2017-01-20] MEDS ORDERED: diphenhydrAMINE 50 MG/ML 1 ML VIAL IVP ONE (07:58)
[2017-01-20] MEDS ORDERED: LIDOCAINE 2% INJ 20 MG/ML SQ ONE (08:02)
[2017-01-20] MEDS ORDERED: BIVALIRUDIN BOLUS 250 MG/50 ML IV ONE (08:15)
[2017-01-20] MEDS ORDERED: CLOPIDOGREL 75 MG TAB ONE (08:15)
[2017-01-20] MEDS ORDERED: BIVALIRUDIN 250 MG in SODIUM CHLORIDE 0.9% 50 ML IV ONE (08:16)
[2017-01-20] MEDS ORDERED: CLOPIDOGREL 75 MG TAB PO ONE (08:19)
[2017-01-20] MEDS: NITROGLYCERIN 1000MCG/10ML SYRINGE INTRACORON ONE ×2 (08:21→08:32)
[2017-01-20] MEDS ORDERED: IODIXANOL 320 MG/ML 100 ML INTRAARTER ONE (08:34)
[2017-01-20] MEDS ORDERED: ZOLPIDEM 5 MG TAB PO PRN (08:49)
[2017-01-20] MEDS ORDERED: MAG HYDROX/AL HYDROX/SIMETH 30 ML CUP PO PRN (08:49)
[2017-01-20] MEDS ORDERED: RX INFO: IV CONTRAST WAS GIVEN 1 EACH MISC MISCELLANE PRN (08:49)
[2017-01-20] MEDS ORDERED: ATROPINE SULFATE 0.1 MG/ML 10ML SYRINGE IV PRN (08:49)
[2017-01-20] MEDS ORDERED: SODIUM CHLORIDE 0.9% 1,000 ML IV SCH (09:00)
[2017-01-20] MEDS ORDERED: PYRIDOXINE 50 MG TAB PO SCH (09:00)
[2017-01-20] MEDS: VIT A,C & E-LUTEIN-MINERALS 1 EACH TAB PO SCH (17:16)
[2017-01-20] MEDS: CARVEDILOL 6.25 MG TAB PO SCH (17:18)
[2017-01-20] MEDS: LISINOPRIL 10 MG TAB PO SCH (18:39)
[2017-01-20] MEDS: ASPIRIN 81 MG CHEW PO SCH (18:39)
[2017-01-20] MEDS: ATORVASTATIN 40 MG TAB PO SCH (18:39)
[2017-01-20] MEDS: CYANOCOBALAMIN 500 MCG TAB PO SCH (18:39)
[2017-01-20] MEDS: CHOLECALCIFEROL 1,000 UNIT TAB PO SCH (18:39)
--- NOTE | 2017-01-20 19:06 | CC ---
DATE OF SERVICE: Mrs. Reynoso is a 76-year-old female with known history of coronary artery disease status post coronary artery bypass grafting in 2001, history of history, hyperlipidemia who presented with symptoms of chest discomfort and had an abnormal myocardial perfusion imaging. In view of that, recommendation made regarding cardiac catheterization. The procedure as well as risks and complications were discussed with the patient who is in full understanding and agreement. PROCEDURE: Patient was brought to the lab support service tech in a fasting semisedated state after receiving fentanyl and Benadryl. She was prepped and draped in conventional fashion using Xylocaine anesthesia and Seldinger technique, a 6 [place] sheath was introduced in the right femoral artery. Selective right and left coronary angiography was performed using 6 [place] 4 bend right and left Guille catheters. Multiple view of the coronary arteries including hemiaxial views were obtained. Following that the 6 [place] right Guille catheter was used to cannulate the COHEN to LAD and saphenous vein graft to the obtuse marginal branch. Images of the grafts were obtained. Following that, a 6 [place] tight pigtail catheter was introduced into the left ventricle and pressures were calculated. Following that, catheter was removed. Images were reviewed. FLUOROSCOPY: There is a significant calcification involving the left main, and the left anterior descending artery. LEFT MAIN: This vessel is totally occluded proximally at the take off of the first diagonal branch, there is no significant antegrade flow. LEFT CIRCUMFLEX: This is a large dominant vessel, bifurcating distally into PDA and posterolateral segment and branches. The distal obtuse marginal branch is totally occluded with no significant antegrade flow. There is mild intimal disease involving the left circumflex following the bifurcation. RIGHT CORONARY ARTERY: This is a small nondominant vessel that has mild intimal disease without any evidence of high-grade stenosis. Saphenous vein graft to the obtuse marginal branch: The distal and proximal anastomotic site is patent. The flow into the obtuse marginal branch is brisk. In the body of this ( ) graft in the proximal segment there is a 70% to sequential lesions. The rest of the vessel has no high-grade stenosis. COHEN to the LAD: The distal anastomotic site is patent. The flow in the LAD is brisk. There is no evidence of high-grade stenosis. LEFT VENTRICULOGRAM: Left ventriculogram was not performed. HEMODYNAMICS: There was no gradient across the aortic valve. The left ventricle end-diastolic was 12 mmHg. CONCLUSION: 1. 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 2. Patent left internal mammary artery to the left anterior descending coronary artery. 3. Patent saphenous vein graft to the obtuse marginal branch with significant stenosis in the body of the graft. RECOMMENDATIONS: In view of the findings and anatomy, I have recommended proceeding with angioplasty and stenting of the saphenous vein graft to the obtuse marginal branch. The procedure as well as risks and complications were discussed with the patient who is in full understanding and agreement.
--- NOTE | 2017-01-20 21:17 | CC ---
DATE OF SERVICE: Mrs. Reynoso is a 76-year-old female with known history of coronary artery disease, who presented with abnormal myocardial perfusion imaging and symptoms of chest discomfort, underwent a cardiac catheterization, was found to have significant obstructive disease involving the body of the saphenous vein graft to the obtuse marginal branch . In view of that, recommendation was made regarding angioplasty and stenting. The procedure as well as risks and complications were discussed with the patient who is in full understanding and agreement. PROCEDURE: A 6 Portuguese FR4 guiding catheter system was introduced into the system. After testing the ostium of the graft, a 0.014 balanced medium weight J-wire was advanced across the lesion, positioned distally. Then a 2.75 x 23 mm Xience Alpine stent was deployed. It was dilated at 16 atmospheres. After the last inflation, after appropriate wait, the balloon and with her back in the guiding catheter. Images were obtained and repeated. Those images revealed stable successful stenting. The patient had no chest discomfort or EKG changes with inflations. Of note she received intragraft nitroglycerin. She received Angiomax per protocol as well as oral loading dose of Clopidogrel. At the end of the procedure, catheter and sheaths were removed. Hemostasis was obtained with deployment of an Angio-Seal. There were no immediate complications. Patient is returned to her room in stable condition. FINDINGS: Successful stenting of the body of the saphenous vein graft to the obtuse marginal branch with reduction in stenosis from 70% to 0%. RECOMMENDATION: Patient will be continued on aspirin, Plavix, beta jose, RANDLAL inhibitor and statin. The importance of dual antiplatelet treatment were discussed with the patient and her family and who is in full understanding and agreement.
--- NOTE | 2017-01-20 21:19 | LTR ---
January 20, 2017 RE: Edgardo Ban L Dear Dr. Stapleton: I had the pleasure of performing cardiac catheterization and coronary angioplasty and stenting on Mrs. Reynoso at [facility] on January 20 and a full copy of procedure note will be forwarded to you. In brief, she was found to have significant obstructive disease involving the body of the saphenous vein graft to the obtuse marginal branch and underwent successful stenting of that vessel using a drug-eluting stent. I am hopeful that this procedure will stabilize her status and I would recommend continued dual antiplatelet treatment for at least one year without any interruption. Thank you again for allowing me to participate in her care. Please feel free to call for any questions. Sincerely, ANIL SHIRLEY MD
[2017-01-21 05:11] VITALS: PULSE 54
[2017-01-21] MEDS: CARVEDILOL 6.25 MG TAB PO SCH (06:33)
[2017-01-21 07:02] LABS: Anion Gap 9 mmol/L; Blood Urea Nitrogen 22 mg/dL (7-17); Carbon Dioxide 20 mmol/L (22-30); Chloride 115 mmol/L (98-107); Glucose 106 mg/dL (74-99); Non-African American GFR(MDRD) 52 (>60 ml/min/1.73 sqM); Potassium 4.4 mmol/L (3.5-5.1); Sodium 144 mmol/L (137-145)
[2017-01-21] MEDS ORDERED: CLOPIDOGREL 75 MG TAB PO SCH (08:50)
[2017-01-21] MEDS: LISINOPRIL 10 MG TAB PO SCH (09:08)
[2017-01-21] MEDS: CHOLECALCIFEROL 1,000 UNIT TAB PO SCH (09:08)
[2017-01-21] MEDS: ASPIRIN 81 MG CHEW PO SCH (09:08)
[2017-01-21] MEDS: VIT A,C & E-LUTEIN-MINERALS 1 EACH TAB PO SCH (09:08)
[2017-01-21] MEDS: ATORVASTATIN 40 MG TAB PO SCH (09:08)
[2017-01-21] MEDS: CYANOCOBALAMIN 500 MCG TAB PO SCH (09:08)
--- NOTE | 2017-01-21 10:43 | PN ---
Mrs. Reynoso is a 76-year-old female with known history of coronary artery disease, status post coronary artery bypass grafting, who presented with symptoms of dyspnea, chest pain and had a normal myocardial perfusion imaging underwent cardiac catheterization and was found to have significant obstructive disease in the body of the saphenous vein graft to the obtuse marginal branch, underwent stenting of that graft yesterday. She is doing well today, ambulating without difficulty. Denying any chest pain. Denying any dizziness. She continues to be on aspirin once a day, Plavix 75 mg daily, Lipitor 40 mg daily, Coreg 6.25 mg twice a day, lisinopril 10 mg daily. PHYSICAL EXAMINATION: Blood pressure running in the 130s with the heart rate in the 60s. LUNGS: Clear. HEART: Regular rate and rhythm. S1 and S2, no S3, no rub. ABDOMEN: Soft, nontender. RIGHT GROIN: No hematoma. Lab data revealed BUN and creatinine 22 and 1.04. Potassium 4.4. Her calcium is 10. Her EKG revealed no acute changes. IMPRESSION: 1. Status post stenting of the saphenous vein graft to the obtuse marginal branch. 2. Hypertension. 3. Hyperlipidemia. RECOMMENDATION: Patient should be able to be discharged home today and followed as outpatient.
[2017-01-21 10:52] VITALS: BP 119/69; TEMP 97.6
== END 2017-01-21 11:35 | disposition home or self-care (01) ==
LOC: CATHCVL 06:17 → 6SEL 08:36 → CATHCVL 01-21 11:35
PROVIDERS: ATTEND Internal Medicine Interventional Cardiology
DX: I25.810 Atherosclerosis of coronary artery bypass graft(s) without angina pectoris (principal); I25.10 Atherosclerotic heart disease of native coronary artery without angina pectoris; Z95.1 Presence of aortocoronary bypass graft; I73.9 Peripheral vascular disease, unspecified; E78.2 Mixed hyperlipidemia; I12.9 Hypertensive chronic kidney disease with stage 1 through stage 4 chronic kidney disease, or unspecified chronic kidney disease; N18.9 Chronic kidney disease, unspecified; I25.82 Chronic total occlusion of coronary artery; Z79.82 Long term (current) use of aspirin; Z79.899 Other long term (current) drug therapy; Z86.73 Personal history of transient ischemic attack (TIA), and cerebral infarction without residual deficits; Z82.49 Family history of ischemic heart disease and other diseases of the circulatory system; Z82.3 Family history of stroke
CPT/HCPCS: 93459; 85347; 80048 ×2; 85025; C9604; C1769 ×4; C1760; C1887; C1894; C1874; J2001; J1200; Q9967; J3010; J0583

== ENCOUNTER → 2017-05-03 | Outpatient (CLI) | payer MEDICARE ==
[2017-05-03 09:22] LABS: Cholesterol 200 mg/dL (<200); HDL Cholesterol 77 mg/dL (40-60); Triglycerides 96 mg/dL (<150)
== END | disposition home or self-care (01) ==
LOC: LABWHC1 08:18
PROVIDERS: ATTEND Internal Medicine Interventional Cardiology
DX: E78.2 Mixed hyperlipidemia (principal)
CPT/HCPCS: 36415; 80061

== ENCOUNTER → 2017-07-20 | Outpatient (CLI) | payer MEDICARE ==
--- NOTE | 2017-07-20 09:54 | US ---
EXAMINATION TYPE: US thyroid st tissue head/neck DATE OF EXAM: 07/20/2017 COMPARISON: NONE CLINICAL HISTORY: R22.1 NECK MASS. EXAMINATION TYPE: US thyroid st tissue head/neck At patients palpable area is a 1.4 x 0.6 x 1.1cm normal appearing lymph node. No additional nodules seen. IMPRESSION: Left lateral neck lymph node.
== END | disposition home or self-care (01) ==
LOC: RADUSWWP 06:50
PROVIDERS: ATTEND Family Medicine
DX: R22.1 Localized swelling, mass and lump, neck (principal)
CPT/HCPCS: 76536

== ENCOUNTER → 2017-10-22 | Outpatient (CLI) | payer MEDICARE ==
[2017-10-22 07:35] LABS: Basophils # (A) 0.1 k/uL (0-0.2); Basophils % (A) 1 %; CH 29.2; CHCM 30.8; Eosinophils # (A) 0.7 k/uL (0-0.7); Eosinophils % (A) 9 %; HCT 38.4 % (34.0-46.0); HDW 2.08; HGB 12.4 gm/dL (11.4-16.0); Hypochromasia Slight; Luc # (Auto) 0.17; Luc % (Auto) 2; Lymphocytes # (A) 2.4 k/uL (1.0-4.8); Lymphocytes % (A) 30 %; MCH 30.7 pg (25.0-35.0); MCHC 32.2 g/dL (31.0-37.0); MCV 95.4 fL (80.0-100.0); Mean Platelet Volume 7.6; Monocytes # (A) 0.6 k/uL (0-1.0); Monocytes % (A) 8 %; Neutrophils % (A) 50 %; RBC 4.03 m/uL (3.80-5.40); RDW 13.7 % (11.5-15.5); WBC 7.9 k/uL (3.8-10.6); WBC (Perox) 8.36
[2017-10-22 07:57] LABS: Calcium 10.4 mg/dL (8.4-10.2); Magnesium 1.7 mg/dL (1.6-2.3); Potassium 4.7 mmol/L (3.5-5.1); Total Bilirubin 0.2 mg/dL (0.2-1.3); Total Protein 6.7 g/dL (6.3-8.2)
== END | disposition home or self-care (01) ==
LOC: LABWHC1 07:02
PROVIDERS: ATTEND Internal Medicine Interventional Cardiology
DX: E55.9 Vitamin D deficiency, unspecified (principal); E78.2 Mixed hyperlipidemia; I10 Essential (primary) hypertension; R25.2 Cramp and spasm; R73.01 Impaired fasting glucose; R22.1 Localized swelling, mass and lump, neck
CPT/HCPCS: 36415; 80053; 80061; 82306; 83036; 83735; 84443; 85025

== ENCOUNTER → 2018-05-02 | Outpatient (CLI) | payer MEDICARE ==
[2018-05-02 08:57] LABS: Basophils % (A) 1 %; Eosinophils # (A) 0.5 k/uL (0-0.7); Eosinophils % (A) 7 %; HCT 37.3 % (34.0-46.0); HGB 11.9 gm/dL (11.4-16.0); Lymphocytes # (A) 1.5 k/uL (1.0-4.8); Lymphocytes % (A) 20 %; MCH 30.3 pg (25.0-35.0); MCV 94.7 fL (80.0-100.0); Monocytes # (A) 0.5 k/uL (0-1.0); Monocytes % (A) 7 %; Neutrophils # (A) 4.8 k/uL (1.3-7.7); Neutrophils % (A) 63 %; Platelet Count 237 k/uL (150-450); RBC 3.94 m/uL (3.80-5.40); RDW 13.5 % (11.5-15.5); WBC 7.6 k/uL (3.8-10.6)
[2018-05-02 09:06] LABS: Albumin 4.2 g/dL (3.5-5.0); Calcium 10.9 mg/dL (8.4-10.2); Phosphorus 3.6 mg/dL (2.5-4.5); Potassium 4.7 mmol/L (3.5-5.1); Total Bilirubin 0.4 mg/dL (0.2-1.3); Total Protein 6.7 g/dL (6.3-8.2); Uric Acid 6.8 mg/dL (3.7-7.4)
[2018-05-02 15:59] LABS: Vitamin D 25 Hydroxy 74.3 ng/mL (30.0-100.0)
[2018-05-02 17:27] LABS: Parathyroid Hormone Intact 64.4 pg/mL (14.0-72.0)
[2018-05-02 18:40] LABS: Hemoglobin A1C 6.3 % (4.0-6.0)
== END | disposition home or self-care (01) ==
LOC: LABWHC1 07:56
PROVIDERS: ATTEND Internal Medicine Interventional Cardiology
DX: E78.2 Mixed hyperlipidemia (principal); R73.01 Impaired fasting glucose; N18.3 Chronic kidney disease, stage 3 (moderate); E55.9 Vitamin D deficiency, unspecified; I25.10 Atherosclerotic heart disease of native coronary artery without angina pectoris
CPT/HCPCS: 36415; 80053; 80061; 82043; 82306; 82570; 83036; 83735; 83970; 84100; 84550; 85025

== ENCOUNTER → 2018-05-03 | Outpatient (CLI) | payer MEDICARE ==
--- NOTE | 2018-05-03 11:02 | US ---
EXAMINATION TYPE: US thyroid st tissue head/neck DATE OF EXAM: 05/03/2018 COMPARISON: CLINICAL HISTORY: R22.1 MASS OF LEFT SIDE OF NECK. Palpable on left side of neck superior to CEA scar Area of palpable scanned. Lymph node appearing lesion seen = 1.8 x 0.7 x 0.6 cm. Previous ultrasoun d measurements from Jun 2017= 1.4 x 0.6 x 1.1 cm. IMPRESSION: Area of palpable abnormality corresponds to node as seen on prior exam with similar dime nsions
== END | disposition home or self-care (01) ==
LOC: RADUSWWP 09:37
PROVIDERS: ATTEND Family Medicine
DX: R22.1 Localized swelling, mass and lump, neck (principal)
CPT/HCPCS: 76536

== ENCOUNTER → 2019-01-02 | Outpatient (CLI) | payer MEDICARE ==
[2019-01-02 17:01] LABS: Albumin 4.1 g/dL (3.80-4.90); Albumin/Globulin Ratio 2.05 (1.60-3.17); Anion Gap 9.5 mmol/L (4.00-12.00); Calcium 9.8 mg/dL (8.7-10.3); Carbon Dioxide 27.5 mmol/L (21.6-31.8); LDL Cholesterol,Calculated 72.2 mg/dL (0.0-131.0); Potassium 5.1 mmol/L (3.5-5.5); Total Bilirubin 0.4 mg/dL (0.2-1.2); Total Protein 6.1 g/dL (6.2-8.2); VLDL Calculation 11.8 mg/dL (5.00-40.00)
== END | disposition home or self-care (01) ==
LOC: LABWHC1 08:08
PROVIDERS: ATTEND Internal Medicine Interventional Cardiology
DX: E78.2 Mixed hyperlipidemia (principal)
CPT/HCPCS: 36415; 80053; 80061

== ENCOUNTER → 2019-08-18 | Outpatient (CLI) | payer MEDICARE ==
[2019-08-18 17:13] LABS: African American GFR (CKD) 50.5 (60.0-200.0); Albumin 4.4 g/dL (3.80-4.90); Albumin/Globulin Ratio 2.1 (1.60-3.17); Anion Gap 9.6 mmol/L (4.00-12.00); BUN/Creat Ratio 18.33 Ratio (12.00-20.00); Calcium 10.7 mg/dL (8.7-10.3); Carbon Dioxide 26.4 mmol/L (21.6-31.8); Chol/HDL Ratio 1.93; Globulin 2.1 g/dL (1.6-3.3); Potassium 4.4 mmol/L (3.5-5.5); Total Bilirubin 0.4 mg/dL (0.2-1.2); Total Protein 6.5 g/dL (6.2-8.2)
== END | disposition home or self-care (01) ==
LOC: LABWHC1 08:03
PROVIDERS: ATTEND Internal Medicine Interventional Cardiology
DX: E78.2 Mixed hyperlipidemia (principal)
CPT/HCPCS: 36415; 80053; 80061

== ENCOUNTER 2021-07-21 14:09 | Emergency (ER) | payer MEDICARE ==
[2021-07-21 14:18] VITALS: BP 145/76; PULSE 70; RESP 16; TEMP 98.2
--- NOTE | 2021-07-21 14:33 | ED ---
General Adult HPI - General Chief complaint: Fall Stated complaint: fall Time Seen by Provider: 07/21/21 14:31 Source: patient, EMS Mode of arrival: EMS Limitations: no limitations - History of Present Illness Initial comments: Patient presents to the ED by ambulance for evaluation status post falling. Patient states that she tripped on a throw rug and fell while at home this afternoon. Patient states that she hit the right side of her face on the floor, and she is currently only complaining of having right sided facial pain. Patient states that she is unsure of LOC. Patient admits to drinking a couple of alcoholic beverages today. Patient was placed in a c-collar by EMS. Patient denies illicit drug use, headache, focal numbness/weakness/neuro deficit, visual changes, neck/back/extremity pain, chest pain, dyspnea, palpitations, dizziness, abdominal pain, nausea or vomiting, or any other symptoms or complaints. Patient denies anticoagulant medication use. - Related Data Home Medications Medication Instructions Recorded Confirmed Cholecalciferol [Vitamin D3 (25 5,000 unit PO DAILY 11/06/16 01/20/17 Mcg = 1000 Iu)] Cyanocobalamin [Vitamin B-12] 500 mcg PO DAILY 11/06/16 01/20/17 Pyridoxine [Vitamin B-6] 50 mg PO DAILY 11/06/16 01/20/17 Vits A,C,E/Lutein/Minerals 1 tab PO DAILY 11/06/16 01/20/17 [Ocuvite with Lutein Tablet] Previous Rx's Medication Instructions Recorded Atorvastatin [Lipitor] 40 mg PO DAILY #30 tab 11/09/16 carvediloL [Coreg] 6.25 mg PO BID-W/MEALS #60 tab 11/09/16 ALPRAZolam [Xanax] 0.25 mg PO TID PRN #20 tab 12/02/16 lisinopriL [Zestril] 10 mg PO DAILY #30 tab 12/02/16 Aspirin 81 mg PO DAILY chew 01/21/17 Clopidogrel [Plavix] 75 mg PO DAILY #90 tab 01/21/17 Nitroglycerin Sl Tabs [Nitrostat] 0.4 mg SUBLINGUAL Q5M PRN #25 tab 01/21/17 Amoxic-Pot Clav 875-125Mg 1 tab PO Q12HR 7 Days #14 tab 07/21/21 [Augmentin 875-125] Allergies Allergy/AdvReac Type Severity Reaction Status Date / Time No Known Allergies Allergy Verified 07/21/21 16:38 Review of Systems ROS Statement: Those systems with pertinent positive or pertinent negative responses have been documented in the HPI. ROS Other: All systems not noted in ROS Statement are negative. Past Medical History Past Medical History: Coronary Artery Disease (CAD), CVA/TIA, Hyperlipidemia, Hypertension, Myocardial Infarction ([place]), Osteoarthritis (OA), Vascular Disorder Additional Past Medical History / Comment(s): borderline diabetic, UTI PAST SEPTICEMIA, HIATAL HERNIA Last Myocardial Infarction Date:: 1999 History of Any Multi-Drug Resistant Organisms: None Reported Past Surgical History: Adenoidectomy, Cholecystectomy, Coronary Bypass/CABG, Heart Catheterization, Joint Replacement, Tonsillectomy, Tubal Ligation Additional Past Surgical History / Comment(s): TRIPLE VESSEL CABG, RT SHOULDER HEMIARTHROPLASTY, LT CAROTI ENDART,CANDY CATARACTS, EGD/COLONOSCOPY."INJ IN LT EYE" Past Anesthesia/Blood Transfusion Reactions: No Reported Reaction Past Psychological History: No Psychological Hx Reported Smoking Status: Never smoker Past Alcohol Use History: Occasional Past Drug Use History: None Reported - Past Family History Father Family Medical History: CVA/TIA, Hypertension, Neurologic Disorder Additional Family Medical History / Comment(s): STROKES RAN ON DAD'S SIDE OF FAMILY Mother Family Medical History: COPD Additional Family Medical History / Comment(s): EMPHYSEMA Sister(s) Family Medical History: Cancer Additional Family Medical History / Comment(s): "FEMALE CANCER" General Exam Limitations: no limitations General appearance: alert, in no apparent distress Head exam: Present: other (Right infraorbital/maxillary facial swelling and tenderness; dried blood is noted in the patient's right nasal cavity; no nasal bone tenderness) Eye exam: Present: normal appearance, PERRL, EOMI ENT exam: Present: mucous membranes moist, TM's normal bilaterally Neck exam: Present: other (C-collar is in place; trachea is in midline; no step- off deformity is appreciated). Absent: tenderness Respiratory exam: Present: normal lung sounds bilaterally. Absent: respiratory distress, wheezes, rales, rhonchi, stridor, chest wall tenderness Cardiovascular Exam: Present: regular rate, normal rhythm, normal heart sounds, other (Normal radial and dorsalis pedis pulses bilaterally) GI/Abdominal exam: Present: soft. Absent: distended, tenderness, guarding Extremities exam: Present: full ROM, other (Pelvis is stable and nontender; patient has full range of motion at bilateral hips). Absent: tenderness, pedal edema Back exam: Present: normal inspection, other (No step-off deformity is appreciated). Absent: tenderness Neurological exam: Present: alert, oriented X3, CN II-XII intact. Absent: motor sensory deficit Psychiatric exam: Present: normal affect, normal mood Skin exam: Present: warm, dry, intact, normal color Course Vital Signs 07/21/21 14:15 Temperature 98.2 F Pulse Rate 70 Respiratory 16 Rate Blood Pressure 145/76 O2 Sat by Pulse 98 Oximetry - Reevaluation(s) Reevaluation #1: 07/21/21 16:59 Patient denies development of any new pain or symptoms while in the ED. Patient remains alert and breathing comfortably with a normal room air oxygen saturation. Patient and [id number] are aware the patient's test results/imaging findings, and patient feels comfortable going home with her [id number] at this time. They were counseled about maxillary sinus facial bone fractures (ice, antibiotics, no nose blowing) and alcohol intoxication. They were clearly explained return and follow-up instructions. Patient was instructed to follow up closely with ENT surgery, as well as her PCP. Patient was instructed to have a low threshold for return to the emergency department should her symptoms worsen. Patient and [id number] both feel comfortable with this plan. EKG Findings - EKG Comments: EKG Findings:: Normal sinus rhythm, ventricular rate of 74 bpm, no ectopy, normal MD and QRS intervals, normal QT interval, leftward axis, nonspecific T- wave abnormality Medical Decision Making - Medical Decision Making Patient's labs are pertinent for an elevated alcohol level. Patient's imaging findings are pertinent for a right maxillary sinus facial bone fracture. Facial bone fracture instructions/precautions were given to the patient. Patient was provided with a prescription for a course of Augmentin. Patient was also provided with ENT surgery follow-up. Will discharge patient home with her [id number] at this time. - Lab Data Result diagrams: 07/21/21 14:54 07/21/21 14:54 Lab Results 07/21/21 07/21/21 07/21/21 Range/Units 14:54 14:54 14:54 WBC 6.2 (3.8-10.6) k/uL RBC 3.30 L (3.80-5.40) m/uL Hgb 11.0 L (11.4-16.0) gm/dL Hct 34.3 (34.0-46.0) % MCV 104.0 H (80.0-100.0) fL MCH 33.2 (25.0-35.0) pg MCHC 32.0 (31.0-37.0) g/dL RDW 14.2 (11.5-15.5) % Plt Count 344 (150-450) k/uL MPV 7.5 Neutrophils % 44 % Lymphocytes % 39 % Monocytes % 7 % Eosinophils % 5 % Basophils % 1 % Neutrophils # 2.7 (1.3-7.7) k/uL Lymphocytes # 2.4 (1.0-4.8) k/uL Monocytes # 0.5 (0-1.0) k/uL Eosinophils # 0.3 (0-0.7) k/uL Basophils # 0.0 (0-0.2) k/uL Macrocytosis Slight PT 9.6 (9.0-12.0) sec INR 0.9 (<1.2) APTT 22.7 (22.0-30.0) sec Sodium 141 (137-145) mmol/L Potassium 3.8 (3.5-5.1) mmol/L Chloride 112 H (98-107) mmol/L Carbon Dioxide 22 (22-30) mmol/L Anion Gap 7 mmol/L BUN 13 (7-17) mg/dL Creatinine 0.92 (0.52-1.04) mg/dL Est GFR (CKD-EPI)AfAm 69 (>60 ml/min/1.73 sqM) Est GFR (CKD-EPI)NonAf 60 (>60 ml/min/1.73 sqM) Glucose 113 H (74-99) mg/dL Calcium 10.1 (8.4-10.2) mg/dL Total Bilirubin 0.3 (0.2-1.3) mg/dL AST 28 (14-36) U/L ALT 9 (4-34) U/L Alkaline Phosphatase 79 (38-126) U/L Creatine Kinase 50 (30-135) U/L Troponin I (0.000-0.034) ng/mL Total Protein 6.3 (6.3-8.2) g/dL Albumin 3.6 (3.5-5.0) g/dL Urine Color Urine Appearance (Clear) Urine pH (5.0-8.0) Ur Specific Banner (1.001-1.035) Urine Protein (Negative) Urine Glucose (UA) (Negative) Urine Ketones (Negative) Urine Blood (Negative) Urine Nitrite (Negative) Urine Bilirubin (Negative) Urine Urobilinogen (<2.0) mg/dL Ur Leukocyte Esterase (Negative) Urine RBC (0-5) /hpf Urine WBC (0-5) /hpf Urine WBC Clumps (None) /hpf Ur Squamous Epith Cells (0-4) /hpf Urine Bacteria (None) /hpf Serum Alcohol 173 mg/dL 07/21/21 07/21/21 Range/Units 14:54 17:30 WBC (3.8-10.6) k/uL RBC (3.80-5.40) m/uL Hgb (11.4-16.0) gm/dL Hct (34.0-46.0) % MCV (80.0-100.0) fL MCH (25.0-35.0) pg MCHC (31.0-37.0) g/dL RDW (11.5-15.5) % Plt Count (150-450) k/uL MPV Neutrophils % % Lymphocytes % % Monocytes % % Eosinophils % % Basophils % % Neutrophils # (1.3-7.7) k/uL Lymphocytes # (1.0-4.8) k/uL Monocytes # (0-1.0) k/uL Eosinophils # (0-0.7) k/uL Basophils # (0-0.2) k/uL Macrocytosis PT (9.0-12.0) sec INR (<1.2) APTT (22.0-30.0) sec Sodium (137-145) mmol/L Potassium (3.5-5.1) mmol/L Chloride (98-107) mmol/L Carbon Dioxide (22-30) mmol/L Anion Gap mmol/L BUN (7-17) mg/dL Creatinine (0.52-1.04) mg/dL Est GFR (CKD-EPI)AfAm (>60 ml/min/1.73 sqM) Est GFR (CKD-EPI)NonAf (>60 ml/min/1.73 sqM) Glucose (74-99) mg/dL Calcium (8.4-10.2) mg/dL Total Bilirubin (0.2-1.3) mg/dL AST (14-36) U/L ALT (4-34) U/L Alkaline Phosphatase (38-126) U/L Creatine Kinase (30-135) U/L Troponin I <0.012 (0.000-0.034) ng/mL Total Protein (6.3-8.2) g/dL Albumin (3.5-5.0) g/dL Urine Color Light Yellow Urine Appearance Cloudy H (Clear) Urine pH 6.0 (5.0-8.0) Ur Specific Banner 1.007 (1.001-1.035) Urine Protein Trace H (Negative) Urine Glucose (UA) Negative (Negative) Urine Ketones Negative (Negative) Urine Blood Negative (Negative) Urine Nitrite Negative (Negative) Urine Bilirubin Negative (Negative) Urine Urobilinogen 6.0 (<2.0) mg/dL Ur Leukocyte Esterase Large H (Negative) Urine RBC 3 (0-5) /hpf Urine WBC 60 H (0-5) /hpf Urine WBC Clumps Few H (None) /hpf Ur Squamous Epith Cells 1 (0-4) /hpf Urine Bacteria Many H (None) /hpf Serum Alcohol mg/dL - Radiology Data Radiology results: report reviewed (Noncontrast CT head and cervical spine are negative for acute findings; noncontrast CT facial bones: Comminuted depressed fracture of the anterior wall of the right maxillary sinus) Disposition Clinical Impression: Fall, Alcohol abuse, Facial bone fracture, Facial contusion, UTI (urinary tract infection) Disposition: HOME SELF-CARE Condition: Stable Instructions (If sedation given, give patient instructions): Facial Fracture (ED), Alcohol Intoxication (ED), Fall Prevention (ED) Additional Instructions: Return to the ER immediately should you develop new or worsening pain, a fever, shortness of breath, vomiting, feeling dizzy or faint, or new or worsening symptoms. Follow up closely with your primary care provider. Follow up closely with ENT surgery clinic as well. Prescriptions: Amoxic-Pot Clav 875-125Mg [Augmentin 875-125] 1 tab PO Q12HR 7 Days #14 tab Is patient prescribed a controlled substance at d/c from ED?: No Referrals: Ban Mccray DO [Primary Care Provider] - 1-2 days Fernando Watkins MD [STAFF PHYSICIAN] - 1-2 days Time of Disposition: 17:04
[2021-07-21 14:59] LABS: Basophils % (A) 1 %; Eosinophils # (A) 0.3 k/uL (0-0.7); Eosinophils % (A) 5 %; HCT 34.3 % (34.0-46.0); Lymphocytes # (A) 2.4 k/uL (1.0-4.8); Lymphocytes % (A) 39 %; MCH 33.2 pg (25.0-35.0); Macrocytosis Slight; Mean Platelet Volume 7.5; Monocytes # (A) 0.5 k/uL (0-1.0); Monocytes % (A) 7 %; Neutrophils # (A) 2.7 k/uL (1.3-7.7); Neutrophils % (A) 44 %; Platelet Count 344 k/uL (150-450); RDW 14.2 % (11.5-15.5); WBC 6.2 k/uL (3.8-10.6)
[2021-07-21 15:07] LABS: INR 0.9 (<1.2); Partial Thromboplastin Time 22.7 sec (22.0-30.0); Prothrombin Time 9.6 sec (9.0-12.0)
[2021-07-21 15:23] LABS: Albumin 3.6 g/dL (3.5-5.0); Calcium 10.1 mg/dL (8.4-10.2); Potassium 3.8 mmol/L (3.5-5.1); Total Bilirubin 0.3 mg/dL (0.2-1.3); Total Protein 6.3 g/dL (6.3-8.2)
--- NOTE | 2021-07-21 16:10 | CT ---
EXAMINATION TYPE: CT brain cspine wo con, CT facial bones wo con DATE OF EXAM: 07/21/2021 COMPARISON: Brain 12/01/2016 HISTORY: 80-year-old female fall, pain, facial injury CT DLP: 981 (accession [id number]), 691.4 (accession [id number]) mGycm Automated exposure control for dose reduction was used. Technique: Examination of the head was done in axial plane without intravenous contrast. Coronal and sagittal reconstructions performed. CT of the cervical spine was obtained in axial plane without intravenous injection of contrast mater ial. Coronal and sagittal reformatted images were obtained from the axial views for evaluation of f ractures, spinal alignment and canal. Additional axial scanning of the facial bones with coronal reconstructions. FINDINGS: HEAD: There is no evidence of acute intracranial hemorrhage, acute ischemic changes, mass, mass-effect, or extra-axial fluid collection. There is no effacement of cerebral sulci or basal subarachnoid cister ns. There is no hydrocephalus. There is no midline shift. Dorantes-white matter distinction is preserv ed. Mastoid air cells are well pneumatized. No calvarial fracture. There is new encephalomalacia anterior right frontal lobe, progressed from 12/01/2016 suggesting interv al infarct. Mild to moderate patchy white matter hypodensities in both cerebral hemispheres. CERVICAL SPINE: No craniocervical junction abnormality, predental space widening, or prevertebral soft tissue swellin g. Degenerative changes at the C1 dens in relation. Moderate disc/endplate degenerative change C5-T1 levels. Alignment is maintained. Multilevel facet and uncovertebral joint hypertrophic arthropathy. Disc osteophyte complex and ligamentum flavum thickening results in variable mild spinal canal stenos es. Suboptimal assessment of the spinal canal from C5-C6 and below due to artifact from the patient's shoulders. No acute fracture seen of the cervical spine. Variable moderate bilateral neuroforaminal stenoses. Sagittal and coronal reformatted images confirm above findings. FACIAL BONES: There is a comminuted and depressed fracture of the anterior wall of the right maxillary sinus. Overl roya soft tissue bruising and mild hematoma. Infraorbital extension of soft tissue swelling on the ri ght. Layering hemorrhagic material in the right maxillary sinus. Slight irregularity of the left nasal bone but without any subtle overlying soft tissue swelling. Madina pect sequela of remote injury. Patient is partially dentulous with periodontal disease. Otherwise, the mandible and TMJs appear inta ct. Pterygoid plates and zygomatic arches appear intact. Orbits and globes appear intact. COMBINED IMPRESSION: 1. HEAD: No acute intracranial abnormality seen. There is an anterior right frontal lobe area of ence phalomalacia related to prior infarct, new from 12/01/2016. 2. CERVICAL SPINE: Moderate multilevel spondylotic changes cervical spine. No acute fracture identifi ed. 3. FACIAL BONES: Comminuted depressed fracture of the anterior wall of the right maxillary sinus. Chr onically thickened mucosa and layering hemorrhagic debris fills the right maxillary sinus. Overlying soft tissue bruising and swelling.
[2021-07-21] MEDS ORDERED: AMOXIC-POT CLAV 875-125MG 1 EACH TAB PO STA (16:34)
--- NOTE | 2021-07-21 17:27 | XR ---
EXAMINATION TYPE: XR chest 1V portable DATE OF EXAM: 07/21/2021 COMPARISON: 12/01/2016 HISTORY: Pain and weakness TECHNIQUE: Single view FINDINGS: There is no heart failure nor confluent pneumonic infiltrate. Costophrenic angles are fairl y clear. There is right shoulder prosthesis. There are sternal wires. There are no hilar masses. IMPRESSION: No active cardiopulmonary disease. No change.
[2021-07-21 17:42] LABS: Appearance,Urine Cloudy (Clear); Bacteria,Urine Many /hpf; Bilirubin,Urine Negative (Negative); Blood,Urine Negative (Negative); Color,Urine Light Yellow; Glucose,Urine (UA) Negative (Negative); Ketones,Urine Negative (Negative); Leukocyte Esterase,Urine Large (Negative); Nitrite,Urine Negative (Negative); Protein,Urine Trace (Negative); RBC,Urine 3 /hpf (0-5); Specific Gravity,Urine 1.007 (1.001-1.035); Squamous Epithelial Cell,Urine 1 /hpf (0-4); WBC,Urine 60 /hpf (0-5)
== END 2021-07-21 17:33 | disposition home or self-care (01) ==
LOC: EC 14:09
DX: S02.40CA Maxillary fracture, right side, initial encounter for closed fracture (principal); N39.0 Urinary tract infection, site not specified; F10.10 Alcohol abuse, uncomplicated; I10 Essential (primary) hypertension; I25.10 Atherosclerotic heart disease of native coronary artery without angina pectoris; I25.2 Old myocardial infarction; E78.5 Hyperlipidemia, unspecified; M19.90 Unspecified osteoarthritis, unspecified site; Z79.82 Long term (current) use of aspirin; Z79.899 Other long term (current) drug therapy; Z79.02 Long term (current) use of antithrombotics/antiplatelets; Z86.73 Personal history of transient ischemic attack (TIA), and cerebral infarction without residual deficits; Z82.49 Family history of ischemic heart disease and other diseases of the circulatory system; Z95.1 Presence of aortocoronary bypass graft; Z90.49 Acquired absence of other specified parts of digestive tract; Y90.9 Presence of alcohol in blood, level not specified; W01.0XXA Fall on same level from slipping, tripping and stumbling without subsequent striking against object, initial encounter; Y92.009 Unspecified place in unspecified non-institutional (private) residence as the place of occurrence of the external cause
CPT/HCPCS: 36415; 93005; 80053; 82550; 84484; 85025; 85610; 85730; 81001; 87086; 71045; 72125; 70486; 70450; 99285; G0480; 80320

== ENCOUNTER → 2022-01-22 | Outpatient (CLI) | payer MEDICARE ==
[2022-01-22 15:43] LABS: ALT 19 U/L (8-44); AST 21 U/L (13-35); African American GFR (CKD) 49.4 (60.0-200.0); Albumin 4.3 g/dL (3.8-4.9); Albumin/Globulin Ratio 1.87 (1.60-3.17); Alkaline Phosphatase 91 U/L (41-126); BUN/Creat Ratio 18.08 Ratio (12.00-20.00); Blood Urea Nitrogen 21.7 mg/dL (9.0-27.0); Calcium 10.1 mg/dL (8.7-10.3); Chloride 104 mmol/L (96-109); Chol/HDL Ratio 2.27 Ratio; Globulin 2.3 g/dL (1.6-3.3); Glucose 127 mg/dL (70-110); LDL Cholesterol,Calculated 102.3 mg/dL (0.0-131.0); Non-African American GFR(CKD) 42.6 (60.0-200.0); Potassium 4.6 mmol/L (3.5-5.5); Sodium 142 mmol/L (135-145); Total Protein 6.6 g/dL (6.2-8.2); VLDL Calculation 17.04 mg/dL (5.00-40.00)
== END | disposition home or self-care (01) ==
LOC: LABWHC1 09:38
PROVIDERS: ATTEND Internal Medicine Interventional Cardiology
DX: E78.2 Mixed hyperlipidemia (principal)
CPT/HCPCS: 36415; 80053; 80061

== ENCOUNTER 2022-05-02 11:50 | Emergency (ER) | payer MEDICARE ==
[2022-05-02 12:09] VITALS: TEMP 98.4
[2022-05-02] MEDS ORDERED: SODIUM CHLORIDE 0.9% 1,000 ML IV STA (12:53)
--- NOTE | 2022-05-02 13:10 | ED ---
General Adult HPI - General Chief complaint: Urogenital Stated complaint: UTI, sorethroat, cough, diarrhea Time Seen by Provider: 05/02/22 12:12 Source: patient, RN notes reviewed Mode of arrival: ambulatory Limitations: no limitations - History of Present Illness Initial comments: Patient is a pleasant 81-year-old female presenting to the emergency Department with several complaints. Onset of symptoms was 1 week ago. Patient does have sore throat. Patient has cough with occasional noncolored sputum. No fever. Patient feels fatigued. Patient does have dysuria. Patient has had several episodes of diarrhea. No abdominal pain. No isolated area of weakness. No dyspnea. - Related Data Home Medications Medication Instructions Recorded Confirmed Atorvastatin Calcium [Lipitor] 80 mg PO DAILY 05/02/22 05/02/22 Cholecalciferol [Vitamin D3 (25 25 mcg PO DAILY 05/02/22 05/02/22 Mcg = 1000 Iu)] Cyanocobalamin (Vitamin B-12) 1,000 mcg PO DAILY 05/02/22 05/02/22 [Vitamin B-12] Mirabegron [Myrbetriq] 50 mg PO DAILY 05/02/22 05/02/22 [place]-3 Fatty Acids [[place]-3] 2,000 mg PO DAILY 05/02/22 05/02/22 Valsartan [Diovan] 160 mg PO DAILY 05/02/22 05/02/22 Previous Rx's Medication Instructions Recorded carvediloL [Coreg] 6.25 mg PO BID-W/MEALS #60 tab 11/09/16 Nitroglycerin Sl Tabs [Nitrostat] 0.4 mg SUBLINGUAL Q5M PRN #25 tab 01/21/17 Nitrofurantoin Monohyd/M-Cryst 100 mg PO Q12HR #20 cap 05/02/22 [Macrobid] Allergies Allergy/AdvReac Type Severity Reaction Status Date / Time No Known Allergies Allergy Verified 05/02/22 13:53 Review of Systems ROS Statement: Those systems with pertinent positive or pertinent negative responses have been documented in the HPI. ROS Other: All systems not noted in ROS Statement are negative. Constitutional: Denies: fever Eyes: Denies: eye pain ENT: Reports: throat pain, congestion Respiratory: Reports: cough Cardiovascular: Denies: chest pain Endocrine: Reports: fatigue Gastrointestinal: Reports: diarrhea. Denies: abdominal pain Genitourinary: Reports: as per HPI, dysuria Musculoskeletal: Denies: back pain Skin: Denies: rash Neurological: Denies: weakness Past Medical History Past Medical History: Coronary Artery Disease (CAD), CVA/TIA, Hyperlipidemia, Hypertension, Myocardial Infarction ([place]), Osteoarthritis (OA), Vascular Disorder Additional Past Medical History / Comment(s): borderline diabetic, UTI PAST SEPTICEMIA, HIATAL HERNIA Last Myocardial Infarction Date:: 1999 History of Any Multi-Drug Resistant Organisms: CRE, Other MDRO Date of last positivie culture/infection: 07/21/21 MDRO Source:: URINE Past Surgical History: Adenoidectomy, Cholecystectomy, Coronary Bypass/CABG, Heart Catheterization, Joint Replacement, Tonsillectomy, Tubal Ligation Additional Past Surgical History / Comment(s): TRIPLE VESSEL CABG, RT SHOULDER HEMIARTHROPLASTY, LT CAROTI ENDART,CANDY CATARACTS, EGD/COLONOSCOPY."INJ IN LT EYE" Past Anesthesia/Blood Transfusion Reactions: No Reported Reaction Past Psychological History: No Psychological Hx Reported Smoking Status: Never smoker Past Alcohol Use History: Occasional Past Drug Use History: None Reported - Past Family History Father Family Medical History: CVA/TIA, Hypertension, Neurologic Disorder Additional Family Medical History / Comment(s): STROKES RAN ON DAD'S SIDE OF FAMILY Mother Family Medical History: COPD Additional Family Medical History / Comment(s): EMPHYSEMA Sister(s) Family Medical History: Cancer Additional Family Medical History / Comment(s): "FEMALE CANCER" General Exam Limitations: no limitations General appearance: alert, in no apparent distress Head exam: Present: normocephalic Eye exam: Present: normal appearance ENT exam: Present: normal oropharynx Neck exam: Present: normal inspection. Absent: tenderness, meningismus Respiratory exam: Present: normal lung sounds bilaterally Cardiovascular Exam: Present: regular rate, normal rhythm GI/Abdominal exam: Present: soft. Absent: tenderness Extremities exam: Present: normal inspection. Absent: pedal edema, calf tenderness Neurological exam: Present: alert Psychiatric exam: Present: normal affect, normal mood Skin exam: Present: normal color Course Vital Signs 05/02/22 11:56 Temperature 98.4 F Pulse Rate 71 Respiratory 16 Rate Blood Pressure 172/71 O2 Sat by Pulse 95 Oximetry EKG Findings - EKG Comments: EKG Findings:: Sinus rhythm with a rate of 60. NE 160. QRS 88. QT 400. QTc 400. Left axis. Low QRS.. T-wave inversion V1 through V5. Medical Decision Making - Medical Decision Making Patient reevaluated and updated. Patient is a candidate for monoclonal antibodies and is in agreement with this. Patient also be prescribed antibiotics for UTI. - Lab Data Result diagrams: 05/02/22 13:27 05/02/22 13:27 Lab Results 05/02/22 05/02/22 05/02/22 Range/Units 13:07 13:27 13:27 WBC 7.2 (3.8-10.6) k/uL RBC 3.43 L (3.80-5.40) m/uL Hgb 11.8 (11.4-16.0) gm/dL Hct 36.4 (34.0-46.0) % MCV 106.2 H (80.0-100.0) fL MCH 34.5 (25.0-35.0) pg MCHC 32.5 (31.0-37.0) g/dL RDW 14.0 (11.5-15.5) % Plt Count 140 L (150-450) k/uL MPV 8.0 Neutrophils % 67 % Lymphocytes % 24 % Monocytes % 5 % Eosinophils % 1 % Basophils % 1 % Neutrophils # 4.8 (1.3-7.7) k/uL Lymphocytes # 1.7 (1.0-4.8) k/uL Monocytes # 0.4 (0-1.0) k/uL Eosinophils # 0.1 (0-0.7) k/uL Basophils # 0.1 (0-0.2) k/uL Macrocytosis Moderate PT 9.4 (9.0-12.0) sec INR 0.8 (<1.2) APTT 26.8 (22.0-30.0) sec Sodium (137-145) mmol/L Potassium (3.5-5.1) mmol/L Chloride (98-107) mmol/L Carbon Dioxide (22-30) mmol/L Anion Gap mmol/L BUN (7-17) mg/dL Creatinine (0.52-1.04) mg/dL Est GFR (CKD-EPI)AfAm (>60 ml/min/1.73 sqM) Est GFR (CKD-EPI)NonAf (>60 ml/min/1.73 sqM) Glucose (74-99) mg/dL Plasma Lactic Acid Scooter (0.7-2.0) mmol/L Calcium (8.4-10.2) mg/dL Total Bilirubin (0.2-1.3) mg/dL AST (14-36) U/L ALT (4-34) U/L Alkaline Phosphatase (38-126) U/L Total Protein (6.3-8.2) g/dL Albumin (3.5-5.0) g/dL Urine Color Yellow Urine Appearance Turbid H (Clear) Urine pH 7.5 (5.0-8.0) Ur Specific [place] 1.017 (1.001-1.035) Urine Protein 2+ H (Negative) Urine Glucose (UA) Negative (Negative) Urine Ketones Negative (Negative) Urine Blood Trace H (Negative) Urine Nitrite Negative (Negative) Urine Bilirubin Negative (Negative) Urine Urobilinogen <2.0 (<2.0) mg/dL Ur Leukocyte Esterase Large H (Negative) Urine RBC 2 (0-5) /hpf Urine WBC 158 H (0-5) /hpf Urine WBC Clumps Many H (None) /hpf Ur Squamous Epith Cells 27 H (0-4) /hpf Urine Bacteria Many H (None) /hpf Coronavirus (PCR) (Not Detectd) Influenza Type A RNA (Not Detectd) Influenza Type B (PCR) (Not Detectd) Group A Strep Rapid (Negative) 05/02/22 05/02/22 05/02/22 Range/Units 13:27 13:27 13:27 WBC (3.8-10.6) k/uL RBC (3.80-5.40) m/uL Hgb (11.4-16.0) gm/dL Hct (34.0-46.0) % MCV (80.0-100.0) fL MCH (25.0-35.0) pg MCHC (31.0-37.0) g/dL RDW (11.5-15.5) % Plt Count (150-450) k/uL MPV Neutrophils % % Lymphocytes % % Monocytes % % Eosinophils % % Basophils % % Neutrophils # (1.3-7.7) k/uL Lymphocytes # (1.0-4.8) k/uL Monocytes # (0-1.0) k/uL Eosinophils # (0-0.7) k/uL Basophils # (0-0.2) k/uL Macrocytosis PT (9.0-12.0) sec INR (<1.2) APTT (22.0-30.0) sec Sodium 136 L (137-145) mmol/L Potassium 4.2 (3.5-5.1) mmol/L Chloride 106 (98-107) mmol/L Carbon Dioxide 22 (22-30) mmol/L Anion Gap 8 mmol/L BUN 27 H (7-17) mg/dL Creatinine 1.14 H (0.52-1.04) mg/dL Est GFR (CKD-EPI)AfAm 53 (>60 ml/min/1.73 sqM) Est GFR (CKD-EPI)NonAf 46 (>60 ml/min/1.73 sqM) Glucose 108 H (74-99) mg/dL Plasma Lactic Acid Scooter 1.1 (0.7-2.0) mmol/L Calcium 9.8 (8.4-10.2) mg/dL Total Bilirubin 0.3 (0.2-1.3) mg/dL AST 46 H (14-36) U/L ALT 32 (4-34) U/L Alkaline Phosphatase 82 (38-126) U/L Total Protein 6.9 (6.3-8.2) g/dL Albumin 4.2 (3.5-5.0) g/dL Urine Color Urine Appearance (Clear) Urine pH (5.0-8.0) Ur Specific [place] (1.001-1.035) Urine Protein (Negative) Urine Glucose (UA) (Negative) Urine Ketones (Negative) Urine Blood (Negative) Urine Nitrite (Negative) Urine Bilirubin (Negative) Urine Urobilinogen (<2.0) mg/dL Ur Leukocyte Esterase (Negative) Urine RBC (0-5) /hpf Urine WBC (0-5) /hpf Urine WBC Clumps (None) /hpf Ur Squamous Epith Cells (0-4) /hpf Urine Bacteria (None) /hpf Coronavirus (PCR) (Not Detectd) Influenza Type A RNA Not Detected (Not Detectd) Influenza Type B (PCR) Not Detected (Not Detectd) Group A Strep Rapid (Negative) 05/02/22 05/02/22 Range/Units 13:27 13:27 WBC (3.8-10.6) k/uL RBC (3.80-5.40) m/uL Hgb (11.4-16.0) gm/dL Hct (34.0-46.0) % MCV (80.0-100.0) fL MCH (25.0-35.0) pg MCHC (31.0-37.0) g/dL RDW (11.5-15.5) % Plt Count (150-450) k/uL MPV Neutrophils % % Lymphocytes % % Monocytes % % Eosinophils % % Basophils % % Neutrophils # (1.3-7.7) k/uL Lymphocytes # (1.0-4.8) k/uL Monocytes # (0-1.0) k/uL Eosinophils # (0-0.7) k/uL Basophils # (0-0.2) k/uL Macrocytosis PT (9.0-12.0) sec INR (<1.2) APTT (22.0-30.0) sec Sodium (137-145) mmol/L Potassium (3.5-5.1) mmol/L Chloride (98-107) mmol/L Carbon Dioxide (22-30) mmol/L Anion Gap mmol/L BUN (7-17) mg/dL Creatinine (0.52-1.04) mg/dL Est GFR (CKD-EPI)AfAm (>60 ml/min/1.73 sqM) Est GFR (CKD-EPI)NonAf (>60 ml/min/1.73 sqM) Glucose (74-99) mg/dL Plasma Lactic Acid Scooter (0.7-2.0) mmol/L Calcium (8.4-10.2) mg/dL Total Bilirubin (0.2-1.3) mg/dL AST (14-36) U/L ALT (4-34) U/L Alkaline Phosphatase (38-126) U/L Total Protein (6.3-8.2) g/dL Albumin (3.5-5.0) g/dL Urine Color Urine Appearance (Clear) Urine pH (5.0-8.0) Ur Specific [place] (1.001-1.035) Urine Protein (Negative) Urine Glucose (UA) (Negative) Urine Ketones (Negative) Urine Blood (Negative) Urine Nitrite (Negative) Urine Bilirubin (Negative) Urine Urobilinogen (<2.0) mg/dL Ur Leukocyte Esterase (Negative) Urine RBC (0-5) /hpf Urine WBC (0-5) /hpf Urine WBC Clumps (None) /hpf Ur Squamous Epith Cells (0-4) /hpf Urine Bacteria (None) /hpf Coronavirus (PCR) Detected A (Not Detectd) Influenza Type A RNA (Not Detectd) Influenza Type B (PCR) (Not Detectd) Group A Strep Rapid Negative (Negative) - Radiology Data Radiology results: image reviewed (Chest x-ray shows no acute process) Disposition Clinical Impression: Urinary tract infection, COVID-19 Disposition: HOME SELF-CARE Condition: Stable Instructions (If sedation given, give patient instructions): Urinary Tract Infection in Women (ED), COVID-19 (Coronavirus Disease 2019) (ED) Additional Instructions: Please follow-up to primary care physician in the next day or 2 for recheck. Prescription for antibiotics has been sent to your pharmacy for urinary tract infection. [id number] vitamin C, vitamin D, and zinc until you feel completely better. Return for difficulty breathing, not tolerating fluids, uncontrolled fevers, worsening or changing symptoms or other concerns. Prescriptions: Nitrofurantoin Monohyd/M-Cryst [Macrobid] 100 mg PO Q12HR #20 cap Is patient prescribed a controlled substance at d/c from ED?: No Referrals: Sima Damon, PAC [Primary Care Provider] - 1-2 days Time of Disposition: 14:17
[2022-05-02 13:23] LABS: Appearance,Urine Turbid (Clear); Bacteria,Urine Many /hpf; Bilirubin,Urine Negative (Negative); Blood,Urine Trace (Negative); Color,Urine Yellow; Glucose,Urine (UA) Negative (Negative); Ketones,Urine Negative (Negative); Leukocyte Esterase,Urine Large (Negative); Nitrite,Urine Negative (Negative); PH, Urine 7.5 (5.0-8.0); Protein,Urine 2+ (Negative); RBC,Urine 2 /hpf (0-5); Specific Gravity,Urine 1.017 (1.001-1.035); Squamous Epithelial Cell,Urine 27 /hpf (0-4); Urobilinogen,Urine <2.0 mg/dL (<2.0); WBC,Urine 158 /hpf (0-5)
[2022-05-02 13:39] LABS: Basophils # (A) 0.1 k/uL (0-0.2); Basophils % (A) 1 %; Eosinophils # (A) 0.1 k/uL (0-0.7); Eosinophils % (A) 1 %; HCT 36.4 % (34.0-46.0); HGB 11.8 gm/dL (11.4-16.0); Lymphocytes # (A) 1.7 k/uL (1.0-4.8); Lymphocytes % (A) 24 %; MCH 34.5 pg (25.0-35.0); MCHC 32.5 g/dL (31.0-37.0); MCV 106.2 fL (80.0-100.0); Macrocytosis Moderate; Monocytes # (A) 0.4 k/uL (0-1.0); Monocytes % (A) 5 %; Neutrophils # (A) 4.8 k/uL (1.3-7.7); Neutrophils % (A) 67 %; Platelet Count 140 k/uL (150-450); RBC 3.43 m/uL (3.80-5.40); WBC 7.2 k/uL (3.8-10.6)
--- NOTE | 2022-05-02 13:42 | XR ---
EXAMINATION TYPE: XR chest 2V DATE OF EXAM: 05/02/2022 1:23 PM COMPARISON: 07/21/2021 TECHNIQUE: XR chest 2V Frontal and lateral views of the chest. CLINICAL INDICATION:Female, 81 years old with history of Weakness; FINDINGS: Lungs/Pleura: There is no evidence of pleural effusion, focal consolidation, or pneumothorax. Pulmonary vascularity: Unremarkable. Heart/mediastinum: Cardiac size is normal. Musculoskeletal: No acute osseous pathology. Midline sternotomy wires are noted and stable.Right shou lder arthroplasty. Hardware is intact. IMPRESSION: No acute cardiopulmonary disease/process. No change from prior.
[2022-05-02 13:48] LABS: Albumin 4.2 g/dL (3.5-5.0); Calcium 9.8 mg/dL (8.4-10.2); Potassium 4.2 mmol/L (3.5-5.1); Total Bilirubin 0.3 mg/dL (0.2-1.3); Total Protein 6.9 g/dL (6.3-8.2)
[2022-05-02 13:50] LABS: INR 0.8 (<1.2); Partial Thromboplastin Time 26.8 sec (22.0-30.0); Prothrombin Time 9.4 sec (9.0-12.0)
[2022-05-02] MEDS ORDERED: NITROFURANTOIN MONOHYD/M-CRYST 100 MG CAP PO STA (14:16)
[2022-05-02 14:42] VITALS: RESP 18
[2022-05-02] MEDS ORDERED: BEBTELOVIMAB (EUA) 175 MG/2 ML VIAL IV ONE (14:45)
[2022-05-02 16:47] VITALS: BP 124/78; PULSE 72
== END 2022-05-02 16:30 | disposition home or self-care (01) ==
LOC: EC 11:50
DX: U07.1 COVID-19 (principal); N39.0 Urinary tract infection, site not specified; I10 Essential (primary) hypertension; I25.10 Atherosclerotic heart disease of native coronary artery without angina pectoris; I25.2 Old myocardial infarction; E78.5 Hyperlipidemia, unspecified; M19.90 Unspecified osteoarthritis, unspecified site; Z79.899 Other long term (current) drug therapy; Z86.73 Personal history of transient ischemic attack (TIA), and cerebral infarction without residual deficits; Z95.1 Presence of aortocoronary bypass graft
CPT/HCPCS: 36415; 93005; 80053; 83605; 85025; 85610; 85730; 81001; 87086; 87081; 87430; 87077; 87186; 87502; 87635; 71046; 99284; 96360; 96361 ×2; Q0222

== ENCOUNTER 2023-05-13 22:56 | Inpatient (IN) | payer MEDICARE ==
--- NOTE | 2023-05-13 23:33 | ED ---
General Adult HPI - General Chief complaint: Fall Stated complaint: Fall Time Seen by Provider: 05/13/23 22:58 Source: patient Mode of arrival: ambulatory Limitations: no limitations - History of Present Illness Initial comments: Dictation was produced using [employer] dictation software. please excuse any grammatical, word or spelling errors. Chief Complaint: 82-year-old female presents emergency department after fall History of Present Illness: Patient is 82-year-old female she has history of for can falls due to poor functionality. She was using her walker when she lost balance and fell. States that she fell backwards. She fell and hurt her lower back. 2 days ago patient had a similar issue. Patient has history of back luke rgery. She is unable to specify what exactly the procedure wasn't was performed on her lower back. Denies any numbness to comparison. No saddle anesthesia. Denies any LOC show any symptoms The ROS documented in this emergency department record has been reviewed and confirmed by me. Those systems with pertinent positive or negative responses have been documented in the HPI. All other systems are other negative and/or noncontributory. - Related Data Home Medications Medication Instructions Recorded Confirmed Atorvastatin Calcium [Lipitor] 80 mg PO DAILY 05/02/22 05/02/22 Cholecalciferol [Vitamin D3 (25 25 mcg PO DAILY 05/02/22 05/02/22 Mcg = 1000 Iu)] Cyanocobalamin (Vitamin B-12) 1,000 mcg PO DAILY 05/02/22 05/02/22 [Vitamin B-12] Mirabegron [Myrbetriq] 50 mg PO DAILY 05/02/22 05/02/22 [place]-3 Fatty Acids [[place]-3] 2,000 mg PO DAILY 05/02/22 05/02/22 Valsartan [Diovan] 160 mg PO DAILY 05/02/22 05/02/22 Previous Rx's Medication Instructions Recorded carvediloL [Coreg] 6.25 mg PO BID-W/MEALS #60 tab 11/09/16 Nitroglycerin Sl Tabs [Nitrostat] 0.4 mg SUBLINGUAL Q5M PRN #25 tab 01/21/17 Nitrofurantoin Monohyd/M-Cryst 100 mg PO Q12HR #20 cap 05/02/22 [Macrobid] Allergies Allergy/AdvReac Type Severity Reaction Status Date / Time No Known Allergies Allergy Verified 05/13/23 23:17 Review of Systems ROS Statement: Those systems with pertinent positive or pertinent negative responses have been documented in the HPI. ROS Other: All systems not noted in ROS Statement are negative. Past Medical History Past Medical History: Coronary Artery Disease (CAD), CVA/TIA, Hyperlipidemia, Hypertension, Myocardial Infarction ([place]), Osteoarthritis (OA), Vascular Disorder Additional Past Medical History / Comment(s): borderline diabetic, UTI PAST SEPTICEMIA, HIATAL HERNIA Last Myocardial Infarction Date:: 1999 History of Any Multi-Drug Resistant Organisms: CRE, Other MDRO Date of last positivie culture/infection: 07/21/21 MDRO Source:: URINE Past Surgical History: Adenoidectomy, Cholecystectomy, Coronary Bypass/CABG, Heart Catheterization, Joint Replacement, Tonsillectomy, Tubal Ligation Additional Past Surgical History / Comment(s): TRIPLE VESSEL CABG, RT SHOULDER HEMIARTHROPLASTY, LT CAROTI ENDART,CANDY CATARACTS, EGD/COLONOSCOPY."INJ IN LT EYE" Past Anesthesia/Blood Transfusion Reactions: No Reported Reaction Past Psychological History: No Psychological Hx Reported Smoking Status: Never smoker Past Alcohol Use History: Occasional Past Drug Use History: None Reported - Past Family History Father Family Medical History: CVA/TIA, Hypertension, Neurologic Disorder Additional Family Medical History / Comment(s): STROKES RAN ON DAD'S SIDE OF FAMILY Mother Family Medical History: COPD Additional Family Medical History / Comment(s): EMPHYSEMA Sister(s) Family Medical History: Cancer Additional Family Medical History / Comment(s): "FEMALE CANCER" General Exam - General Exam Comments Initial Comments: PHYSICAL EXAM: General Impression: Alert and oriented x3, not in acute distress HEENT: Normocephalic atraumatic, extra-ocular movements intact, pupils equal and reactive to light bilaterally, mucous membranes moist. Cardiovascular: Heart regular rate and rhythm Chest: Able to complete full sentences, no retractions, no tachypnea Abdomen: abdomen soft, non-tender, non-distended, no organomegaly Musculoskeletal: Pulses present and equal in all extremities, no peripheral edema Motor: no focal deficits noted Neurological: CN II-XII grossly intact, no focal motor or sensory deficits noted Skin: Intact with no visualized rashes Psych: Normal affect and mood Limitations: no limitations Course Vital Signs 05/13/23 05/14/2305/14/23 23:17 00:57 01:46 Temperature 97 F L Pulse Rate 67 72 70 Respiratory 16 18 18 Rate Blood Pressure 127/55 107/57 120/60 O2 Sat by Pulse 97 97 98 Oximetry EKG Findings - EKG Comments: EKG Findings:: My EKG interpretation: Ventricular rate 60, sinus rhythm,. Interval to 6, QRS 100, QTC 4:5. No UT prolongation, no QTC prolongation, no ST or T-wave changes noted. EKG compared to 05/02/2022 showing no changes. Overall, this EKG is unremarkable Medical Decision Making - Medical Decision Making Was pt. sent in by a medical professional or institution (, PA, MOVEMENT THERAPIST, urgent care, hospital, or prison...) When possible be specific @ -No Did you speak to anyone other than the patient for history (EMS, parent, family, police, friend...)? What history was obtained from this source @ -No Did you review nursing and triage notes (agree or disagree)? Why? @ -I reviewed and agree with nursing and triage notes Were old charts reviewed (outside hosp., previous admission, EMS record, old EKG, old radiological studies, urgent care reports/EKG's, prison records)? Report findings @ -No old charts were reviewed Differential Diagnosis (chest pain, altered mental status, abdominal pain women, abdominal pain men, vaginal bleeding, musculoskeletal, weakness, fever, dyspnea, syncope, headache, dizziness, GI bleed, back pain, seizure, CVA, palpatations, mental health)? @ -History, hip fracture, knee fracture, head injury EKG interpreted by me (3pts min.). @ -See above X-rays interpreted by me (1pt min.). @ -Pelvis x-ray shows nondisplaced right intertrochanteric fracture. Femur x- ray is unremarkable. Chest x-ray nonacute. CT interpreted by me (1pt min.). @ -Skin of the head and C-spine and lumbar CT shows no acute traumatic injuries. U/S interpreted by me (1pt. min.). @ -None done What testing was considered but not performed or refused? (CT, X-rays, U/S, labs)? Why? @ -None What meds were considered but not given or refused? Why? @ -None Did you discuss the management of the patient with other professionals (professionals i.e. , PA, MOVEMENT THERAPIST, lab, RT, psych nurse, social worker aide, flaker operator, teacher, supply requirements officer, case making machine operator)? Give summary @ -Clinical presentation and imaging studies discussed with on-call orthophoric admission Was smoking cessation discussed for >3mins.? @ -No Was critical care preformed (if so, how long)? @ -No Were there social determinants of health that impacted care today? How? (Homelessness, low income, unemployed, alcoholism, drug addiction, transportation, low edu. Level, literacy, decrease access to med. care, long-term, rehab)? @ -No Was there de-escalation of care discussed even if they declined (Discuss DNR or withdrawal of care, Hospice)? DNR status @ -No What co-morbidities impacted this encounter? (DM, HTN, Smoking, COPD, CAD, Cancer, CVA, ARF, Chemo, Hep., AIDS, mental health diagnosis, sleep apnea, morbid obesity)? @ -None Was patient admitted / discharged? Hospital course, mention meds given and route, prescriptions, significant lab abnormalities, going to OR and other pertinent info. @ -82-year-old female presents to emergency department after fall. She complains of back pain and hip pain. X-ray shows right hip fracture. Will be admitted for further care. Undiagnosed new problem with uncertain prognosis? @ -No Drug Therapy requiring intensive monitoring for toxicity (Heparin, Nitro, Insulin, Cardizem)? @ -No Were any procedures done? @ -No Diagnosis/symptom? Acute, or Chronic, or Acute on Chronic? Uncomplicated (without systemic symptoms) or Complicated (systemic symptoms)? @ -1. Fall, acute right hip fracture Side effects of treatment? @ -No Exacerbation, Progression, or Severe Exacerbation? @ -No Poses a threat to life or bodily function? How? (Chest pain, [place], [place], pneumonia, PE, COPD, DKA, ARF, appy, cholecystitis, CVA, Diverticulitis, Homicidal, Suicidal, threat to staff... and all critical care pts) @ -yes - Lab Data Result diagrams: 05/14/23 00:10 05/14/23 00:10 Lab Results 05/14/23 05/14/23 05/14/23 Range/Units 00:10 00:10 00:10 WBC 8.8 (3.8-10.6) k/uL RBC 3.13 L (3.80-5.40) m/uL Hgb 10.6 L (11.4-16.0) gm/dL Hct 32.5 L (34.0-46.0) % MCV 103.7 H (80.0-100.0) fL MCH 33.8 (25.0-35.0) pg MCHC 32.6 (31.0-37.0) g/dL RDW 13.1 (11.5-15.5) % Plt Count 214 (150-450) k/uL MPV 7.7 Neutrophils % 60 % Lymphocytes % 25 % Monocytes % 8 % Eosinophils % 6 % Basophils % 0 % Neutrophils # 5.2 (1.3-7.7) k/uL Lymphocytes # 2.2 (1.0-4.8) k/uL Monocytes # 0.7 (0-1.0) k/uL Eosinophils # 0.5 (0-0.7) k/uL Basophils # 0.0 (0-0.2) k/uL Macrocytosis Slight PT 9.3 (9.0-12.0) sec INR 0.9 (<1.2) APTT 24.4 (22.0-30.0) sec Sodium 138 (137-145) mmol/L Potassium 4.1 (3.5-5.1) mmol/L Chloride 107 (98-107) mmol/L Carbon Dioxide 20 L (22-30) mmol/L Anion Gap 11 mmol/L BUN 30 H (7-17) mg/dL Creatinine 1.06 H (0.52-1.04) mg/dL Est GFR (CKD-EPI)AfAm 57 (>60 ml/min/1.73 sqM) Est GFR (CKD-EPI)NonAf 50 (>60 ml/min/1.73 sqM) Glucose 137 H (74-99) mg/dL Calcium 10.1 (8.4-10.2) mg/dL Disposition Clinical Impression: Hip fracture Disposition: ADMITTED IP TO THIS HOSP Condition: Fair Referrals: Sima Damon, PAC [Primary Care Provider] - 1-2 days Decision Time: 01:45
[2023-05-13] MEDS ORDERED: MORPHINE SULFATE 4 MG/ML SYRINGE IV STA (23:45)
[2023-05-14] MEDS ORDERED: MORPHINE SULFATE 4 MG/ML SYRINGE IV STA (00:38)
[2023-05-14 01:06] LABS: African American GFR (CKD) 57 (>60 ml/min/1.73 sqM); Anion Gap 11 mmol/L; Blood Urea Nitrogen 30 mg/dL (7-17); Calcium 10.1 mg/dL (8.4-10.2); Carbon Dioxide 20 mmol/L (22-30); Chloride 107 mmol/L (98-107); Glucose 137 mg/dL (74-99); Non-African American GFR(CKD) 50 (>60 ml/min/1.73 sqM); Potassium 4.1 mmol/L (3.5-5.1); Sodium 138 mmol/L (137-145)
[2023-05-14 01:21] LABS: Basophils % (A) 0 %; Eosinophils # (A) 0.5 k/uL (0-0.7); Eosinophils % (A) 6 %; HCT 32.5 % (34.0-46.0); HGB 10.6 gm/dL (11.4-16.0); Lymphocytes # (A) 2.2 k/uL (1.0-4.8); Lymphocytes % (A) 25 %; MCH 33.8 pg (25.0-35.0); MCHC 32.6 g/dL (31.0-37.0); MCV 103.7 fL (80.0-100.0); Macrocytosis Slight; Mean Platelet Volume 7.7; Monocytes # (A) 0.7 k/uL (0-1.0); Monocytes % (A) 8 %; Neutrophils # (A) 5.2 k/uL (1.3-7.7); Neutrophils % (A) 60 %; Platelet Count 214 k/uL (150-450); RBC 3.13 m/uL (3.80-5.40); RDW 13.1 % (11.5-15.5); WBC 8.8 k/uL (3.8-10.6)
[2023-05-14 01:26] LABS: INR 0.9 (<1.2); Partial Thromboplastin Time 24.4 sec (22.0-30.0); Prothrombin Time 9.3 sec (9.0-12.0)
--- NOTE | 2023-05-14 01:45 | CT ---
EXAM: CT Head Without Intravenous Contrast CLINICAL HISTORY: ITS.REASON CT Reason: fall TECHNIQUE: Axial computed tomography images of the head/brain without intravenous contrast. CTDI is 28.4 mGy and DLP is 725.15 mGy-cm. This CT exam was performed using one or more of the following dose reduction techniques: automated exposure control, adjustment of the mA and/or kV according to patient size, and/or use of iterative reconstruction technique. COMPARISON: No relevant prior studies available. FINDINGS: No acute intracranial hemorrhage. No midline shift or mass effect. Encephalomalacia in the RIGHT frontal lobe, consistent with old infarct. Age-related cerebral volume loss. Periventricular and subcortical white matter hypoattenuation, consistent with chronic microangiopathy. The visualized orbits appear grossly unremarkable. The calvarium is intact. The visualized paranasal sinuses and mastoid air cells are grossly clear. IMPRESSION: No acute intracranial hemorrhage, midline shift, or mass effect. Encephalomalacia in the RIGHT frontal lobe, consistent with old infarct. EXAM: CT Cervical Spine Without Intravenous Contrast CLINICAL HISTORY: ITS.REASON CT Reason: fall TECHNIQUE: Axial computed tomography images of the cervical spine without intravenous contrast. CTDI is 28.4 mGy and DLP is 726.15 mGy-cm. This CT exam was performed using one or more of the following dose reduction techniques: automated exposure control, adjustment of the mA and/or kV according to patient size, and/or use of iterative reconstruction technique. COMPARISON: No relevant prior studies available. FINDINGS: The vertebral body heights are maintained. The craniocervical junction is intact. The atlanto-dens interval is maintained. The dens is intact. There is no spondylolisthesis. Multilevel cervical spondylosis and degenerative disc disease. Straightening of the cervical lordosis. The unenhanced neck soft tissues are grossly unremarkable. The visualized lung apices are grossly clear. IMPRESSION: No acute fracture or subluxation of the cervical spine.
--- NOTE | 2023-05-14 01:46 | CT ---
EXAM: CT Lumbar Spine Without Intravenous Contrast CLINICAL HISTORY: ITS.REASON CT Reason: fall TECHNIQUE: Axial computed tomography images of the lumbar spine without intravenous contrast. CTDI is 24.7 mGy and DLP is 890.8 mGy-cm. This CT exam was performed using one or more of the following dose reduction techniques: automated exposure control, adjustment of the mA and/or kV according to patient size, and/or use of iterative reconstruction technique. COMPARISON: No relevant prior studies available. FINDINGS: Cement kyphoplasty at L4 in the setting of a chronic, moderate compression deformity. Mild retropulsion of the inferior endplate. Interspinous device at L4-L5. The vertebral body heights are maintained. The lumbar lordosis is preserved. There is no spondylolisthesis. The posterior elements are maintained, without evidence of acute fracture. The pedicles are intact. Multilevel lumbar spondylosis, intervertebral disc space narrowing, and degenerative disc disease. Osseous demineralization. Calcified aorta. IMPRESSION: No acute lumbar spine fracture.
--- NOTE | 2023-05-14 02:31 | XR ---
EXAM: XR Chest, 1 View CLINICAL HISTORY: ITS.REASON XR Reason: fall TECHNIQUE: Frontal view of the chest. COMPARISON: No relevant prior studies available. FINDINGS: Lungs: No consolidation. No overt edema. Pleural space: No pleural effusion. No pneumothorax. Heart: Unremarkable. No cardiomegaly. Bones/joints: Right shoulder arthroplasty. IMPRESSION: No acute findings in the chest.
--- NOTE | 2023-05-14 02:33 | XR ---
EXAM: XR Right Femur, 2 Views CLINICAL HISTORY: ITS.REASON XR Reason: fall TECHNIQUE: Frontal and lateral views of the right femur. COMPARISON: No relevant prior studies available. FINDINGS: Bones/joints: Nondisplaced intertrochanteric fracture on the right. Soft tissues: Unremarkable. IMPRESSION: Nondisplaced intertrochanteric fracture on the right.
--- NOTE | 2023-05-14 02:33 | XR ---
EXAM: XR Pelvis, 1 or 2 Views CLINICAL HISTORY: ITS.REASON XR Reason: FALL TECHNIQUE: Frontal view of the pelvis. COMPARISON: No relevant prior studies available. FINDINGS: Bones/joints: Nondisplaced intratrochanteric fracture on the right. IMPRESSION: Nondisplaced intratrochanteric fracture on the right.
[2023-05-14] MEDS ORDERED: HYDROmorphone 1 MG/ML 1 ML SYRINGE IVP STA (02:45)
[2023-05-14] MEDS ORDERED: NALOXONE 0.4 MG/ML 1 ML VIAL IV PRN (02:51)
[2023-05-14] MEDS: SODIUM CHLORIDE 0.9% 1,000 ML IV SCH ×3 (03:07→20:28)
[2023-05-14] MEDS: HYDROmorphone 1 MG/ML 1 ML SYRINGE IVP PRN ×4 (07:36→22:57)
--- NOTE | 2023-05-14 09:21 | P.CONS ---
History of Present Illness - Reason for Consult Preoperative clearance - History of Present Illness 82-year-old female admitted after a mechanical fall due to generalized weakness and poor functionality. Patient is found to have left hip fracture. Patient does have history of coronary artery disease has a coronary artery bypass grafting in the past presently doesn't have any chest pain EKGs did not show any ST-T wave changes. Patient doesn't have any signs or symptoms of congestive heart failure patient although is in some pain. REVIEW OF SYSTEMS: CONSTITUTIONAL: No fever, no malaise, no fatigue. HEENT: No recent visual problems or hearing problems. Denied any sore throat. CARDIOVASCULAR: No chest pain, orthopnea, PND, no palpitations, no syncope. PULMONARY: No shortness of breath, no cough, no hemoptysis. GASTROINTESTINAL: No diarrhea, no nausea, no vomiting, no abdominal pain. NEUROLOGICAL: No headaches, no weakness, no numbness. HEMATOLOGICAL: Denies any bleeding or petechiae. GENITOURINARY: Denies any burning micturition, frequency, or urgency. MUSCULOSKELETAL/RHEUMATOLOGICAL: As mentioned in the interval history ENDOCRINE: Denies any polyuria or polydipsia. The rest of the 14-point review of systems is negative. PHYSICAL EXAMINATION: GENERAL: The patient is alert and oriented x3, not in any acute distress. Well developed, well nourished. HEENT: Pupils are round and equally reacting to light. EOMI. No scleral icterus. No conjunctival pallor. Normocephalic, atraumatic. No pharyngeal erythema. No thyromegaly. CARDIOVASCULAR: S1 and S2 present. No murmurs, rubs, or gallops. PULMONARY: Chest is clear to auscultation, no wheezing or crackles. ABDOMEN: Soft, nontender, nondistended, normoactive bowel sounds. No palpable organomegaly. MUSCULOSKELETAL: Deferred to orthopedic surgery EXTREMITIES: No cyanosis, clubbing, or pedal edema. NEUROLOGICAL: Gross neurological examination did not reveal any focal deficits. SKIN: No rashes. Assessment and plan -Preoperative clearance: Patient is low to moderate operative risk for left hip arthroplasty. Patient will be resumed on beta jose and her statins once medications are verified Have coronary artery disease with CABG in the past no evidence of congestive heart failure at this time patient doesn't have have chest pain actively at this time. -CVA/TIA in the past -Hyperlipidemia -Hypertension -Peripheral vascular disease -Occasional alcohol use patient states she doesn't drink on a daily basis. For above-mentioned chronic medical problems patient will be resumed on appropriate home medications DVT prophylaxis: As per primary service Past Medical History Past Medical History: Coronary Artery Disease (CAD), CVA/TIA, Hyperlipidemia, Hypertension, Myocardial Infarction ([place]), Osteoarthritis (OA), Vascular Disorder Additional Past Medical History / Comment(s): borderline diabetic, UTI PAST SEPTICEMIA, HIATAL HERNIA Last Myocardial Infarction Date:: 1999 History of Any Multi-Drug Resistant Organisms: CRE, Other MDRO Year Discovered:: 07/21/21 MDRO Source:: URINE Past Surgical History: Adenoidectomy, Cholecystectomy, Coronary Bypass/CABG, Heart Catheterization, Joint Replacement, Tonsillectomy, Tubal Ligation Additional Past Surgical History / Comment(s): TRIPLE VESSEL CABG, RT SHOULDER HEMIARTHROPLASTY, LT CAROTI ENDART,CANDY CATARACTS, EGD/COLONOSCOPY."INJ IN LT EYE" Past Anesthesia/Blood Transfusion Reactions: No Reported Reaction Past Psychological History: No Psychological Hx Reported Smoking Status: Never smoker Past Alcohol Use History: Occasional Past Drug Use History: None Reported - Past Family History Father Family Medical History: CVA/TIA, Hypertension, Neurologic Disorder Additional Family Medical History / Comment(s): STROKES RAN ON DAD'S SIDE OF FAMILY Mother Family Medical History: COPD Additional Family Medical History / Comment(s): EMPHYSEMA Sister(s) Family Medical History: Cancer Additional Family Medical History / Comment(s): "FEMALE CANCER" Medications and Allergies Home Medications Medication Instructions Recorded Confirmed Type carvediloL [Coreg] 6.25 mg PO BID-W/MEALS #60 tab 11/09/16 05/02/22 Rx Nitroglycerin Sl Tabs [Nitrostat] 0.4 mg SUBLINGUAL Q5M PRN #25 tab 01/21/17 05/02/22 Rx Atorvastatin Calcium [Lipitor] 80 mg PO DAILY 05/02/22 05/02/22 History Cholecalciferol [Vitamin D3 (25 25 mcg PO DAILY 05/02/22 05/02/22 History Mcg = 1000 Iu)] Cyanocobalamin (Vitamin B-12) 1,000 mcg PO DAILY 05/02/22 05/02/22 History [Vitamin B-12] Mirabegron [Myrbetriq] 50 mg PO DAILY 05/02/22 05/02/22 History Nitrofurantoin Monohyd/M-Cryst 100 mg PO Q12HR #20 cap 05/02/22 Rx [Macrobid] Jackson-3 Fatty Acids [Jackson-3] 2,000 mg PO DAILY 05/02/22 05/02/22 History Valsartan [Diovan] 160 mg PO DAILY 05/02/22 05/02/22 History Allergies Allergy/AdvReac Type Severity Reaction Status Date / Time No Known Allergies Allergy Verified 05/13/23 23:17 Physical Exam Vitals: Vital Signs Temp Pulse Resp BP Pulse Ox 05/14/23 07:00 97.1 F L 77 20 165/76 98 05/14/23 06:47 72 20 152/76 97 05/14/23 05:39 66 18 135/70 96 05/14/23 03:35 71 18 122/59 94 L 05/14/23 01:46 70 18 120/60 98 05/14/23 00:57 72 18 107/57 97 05/13/23 23:17 97 F L 67 16 127/55 97 Intake and Output 05/13/23 05/14/23 05/14/23 22:59 06:59 14:59 Other: Weight 68.039 kg Results CBC & Chem 7: 05/14/23 00:10 05/14/23 00:10 Labs: Abnormal Lab Results - Last 24 Hours (Table) 05/14/23 05/14/23 Range/Units 00:10 00:10 RBC 3.13 L (3.80-5.40) m/uL Hgb 10.6 L (11.4-16.0) gm/dL Hct 32.5 L (34.0-46.0) % MCV 103.7 H (80.0-100.0) fL Carbon Dioxide 20 L (22-30) mmol/L BUN 30 H (7-17) mg/dL Creatinine 1.06 H (0.52-1.04) mg/dL Glucose 137 H (74-99) mg/dL
[2023-05-14] MEDS: HYDROcodone/APAP 5-325MG 1 EACH TAB PO PRN ×2 (13:24→20:26)
--- NOTE | 2023-05-14 16:31 | P.HPOR ---
History of Present Illness H&P Date: 05/14/23 This patient is an 82- year old female with a past medical history of coronary artery disease that presented to [facility] emergency department on 05/13/23 with complaints of right hip pain following a fall. The patient states she lost her balance while using her walker and fell onto the right hip. X-rays in the emergency department revealed a right intertrochanteric hip fracture. The patient was admitted under the care of Dr. Tavares for surgical intervention with a consult placed to internal medicine for preoperative medical clearance. Patient is examined bedside in the emergency department with Dr. Tavares. She is complaining of isolated right hip pain. There are no additional complaints or concerns at this time. Vital signs stable. Past Medical History Past Medical History: Coronary Artery Disease (CAD), CVA/TIA, Hyperlipidemia, H ypertension, Myocardial Infarction ([place]), Osteoarthritis (OA), Vascular Disorder Additional Past Medical History / Comment(s): borderline diabetic, UTI PAST SEPTICEMIA, HIATAL HERNIA Last Myocardial Infarction Date:: 1999 History of Any Multi-Drug Resistant Organisms: CRE, Other MDRO Date of last positivie culture/infection: 07/21/21 MDRO Source:: URINE Past Surgical History: Adenoidectomy, Cholecystectomy, Coronary Bypass/CABG, Heart Catheterization, Joint Replacement, Tonsillectomy, Tubal Ligation Additional Past Surgical History / Comment(s): TRIPLE VESSEL CABG, RT SHOULDER HEMIARTHROPLASTY, LT CAROTI ENDART,CANDY CATARACTS, EGD/COLONOSCOPY."INJ IN LT EYE" Past Anesthesia/Blood Transfusion Reactions: No Reported Reaction Past Psychological History: No Psychological Hx Reported Smoking Status: Never smoker Past Alcohol Use History: Occasional Past Drug Use History: None Reported - Past Family History Father Family Medical History: CVA/TIA, Hypertension, Neurologic Disorder Additional Family Medical History / Comment(s): STROKES RAN ON DAD'S SIDE OF FAMILY Mother Family Medical History: COPD Additional Family Medical History / Comment(s): EMPHYSEMA Sister(s) Family Medical History: Cancer Additional Family Medical History / Comment(s): "FEMALE CANCER" Medications and Allergies Home Medications Medication Instructions Recorded Confirmed Type Atorvastatin Calcium [Lipitor] 80 mg PO DAILY 05/02/22 05/14/23 History Cyanocobalamin (Vitamin B-12) 1,000 mcg PO DAILY 05/02/22 05/14/23 History [Vitamin B-12] Mirabegron [Myrbetriq] 50 mg PO DAILY 05/02/22 05/14/23 History [place]-3 Fatty Acids [[place]-3] 1,000 mg PO DAILY 05/02/22 05/14/23 History Valsartan [Diovan] 160 mg PO DAILY 05/02/22 05/14/23 History Aspirin EC [Ecotrin Low Dose] 81 mg PO DAILY 05/14/23 05/14/23 History Cholecalciferol [Vitamin D3 (125 125 mcg PO DAILY 05/14/23 05/14/23 History Mcg = 5000 Iu)] Denosumab [Prolia] 60 mg SQ Q180D 05/14/23 05/14/23 History Nitroglycerin Sl Tabs [Nitrostat] 0.4 mg SL Q5M PRN 05/14/23 05/14/23 History carvediloL [Coreg] 6.25 mg PO BID 05/14/23 05/14/23 History Allergies Allergy/AdvReac Type Severity Reaction Status Date / Time No Known Allergies Allergy Verified 05/13/23 23:17 Physical Examination On examination, the patient is sitting up on the gurney no apparent distress. She is alert and answers questions appropriately. Family is bedside. Her head appears normocephalic and atraumatic. Her breathing appears nonlabored. On inspection of the bilateral upper extremities, there are no obvious deformities or signs of trauma. On inspection of the left lower extremity, no obvious deformities or signs of trauma. On inspection of the right lower extremity, no open wounds or lacerations. There is significant pain with any attempted passive range of motion of the right lower extremity. Right lower extremity is warm well-perfused. Motor and sensory function is intact right lower extremity. Results Right hip and pelvis x-ray 05/14/23: Right intertrochanteric hip fracture - Labs Labs: Abnormal Lab Results - Last 24 Hours (Table) 05/14/23 05/14/23 Range/Units 00:10 00:10 RBC 3.13 L (3.80-5.40) m/uL Hgb 10.6 L (11.4-16.0) gm/dL Hct 32.5 L (34.0-46.0) % MCV 103.7 H (80.0-100.0) fL Carbon Dioxide 20 L (22-30) mmol/L BUN 30 H (7-17) mg/dL Creatinine 1.06 H (0.52-1.04) mg/dL Glucose 137 H (74-99) mg/dL H & H 05/14/23 Range/Units 00:10 Hgb 10.6 L (11.4-16.0) gm/dL Hct 32.5 L (34.0-46.0) % Coagulation 05/14/23 Range/Units 00:10 INR 0.9 (<1.2) Result Diagrams: 05/14/23 00:10 05/14/23 00:10 Assessment and Plan Assessment: Right intertrochanteric hip fracture Plan: - Clinical and imaging findings were discussed with the patient her family. Recommend a right hip gamma nail for operative fixation of her right intertrochanteric hip fracture. We will plan for surgery tomorrow morning. Patient has been already evaluated by internal medicine and cleared for surgery. - Bed rest. Pain management as needed. - We will plan for OR tomorrow morning. NPO diet after midnight.
[2023-05-14] MEDS ORDERED: NITROGLYCERIN SL TABS 0.4 MG TAB SUBLINGUAL PRN (19:30)
[2023-05-14] MEDS: carvediloL 6.25 MG TAB PO SCH (20:26)
[2023-05-15] MEDS: HYDROmorphone 1 MG/ML 1 ML SYRINGE IVP PRN ×5 (01:20→18:19)
[2023-05-15] MEDS: SODIUM CHLORIDE 0.9% 1,000 ML IV SCH ×5 (02:54→21:05)
[2023-05-15] MEDS: carvediloL 6.25 MG TAB PO SCH ×2 (06:04→17:11)
[2023-05-15] MEDS ORDERED: PHENYLEPHRINE-0.9% NACL SYG 1,000 MCG/10 ML SYRINGE ONE (07:56)
[2023-05-15] MEDS ORDERED: KETAMINE 10 MG/ML 20 ML VIAL ONE (07:56)
[2023-05-15] MEDS ORDERED: ceFAZolin 1,000 MG VIAL ONE (07:56)
[2023-05-15] MEDS ORDERED: SODIUM CHLORIDE 0.9% 100 ML BAG ONE (07:56)
[2023-05-15] MEDS ORDERED: MIDAZOLAM 2 MG/2 ML VIAL ONE (07:56)
[2023-05-15] MEDS ORDERED: LACTATED RINGERS 1,000 ML IV ONE ×2 (07:59→10:30)
[2023-05-15] MEDS ORDERED: SODIUM CHLORIDE 0.9% 50 ML with ceFAZolin 2,000 MG IV ONE ×2 (07:59)
--- NOTE | 2023-05-15 09:27 | FL ---
Intraoperative/procedural fluoroscopic services were provided. Total fluoroscopy time is 59 seconds w ith a total of 2 submitted images to PACS. Please see the operative/procedural note for further detai ls. DAP: 3.6137 Gycm2
--- NOTE | 2023-05-15 09:30 | P.OP ---
Date of Procedure: 05/15/23 Preoperative Diagnosis: Right intertrochanteric hip fracture Postoperative Diagnosis: Same Procedure(s) Performed: Operative fixation of right intertrochanteric hip fracture with short intramedullary hip screw Anesthesia: spinal Surgeon: Mitchell Tavares Senior Java Software Engineer #1: Elma Guillermo Estimated Blood Loss (ml): 100 IV fluids (ml): 600 Urine output (ml): 250 Pathology: none sent Condition: stable Disposition: PACU Indications for Procedure: I met with the patient and their family preoperatively to discuss their injury and treatment options. They have an extra-capsular, intertrochanteric hip fracture and my recommendation was to stabilize the fracture with an intramedullary hip screw to facilitate early mobilization. We discussed the potential risks and complications of this surgical procedure including but certainly not limited to risks from anesthesia, superficial infection, deep infection, fracture nonunion, fracture malunion, hardware failure including broken hardware, varus collapse with lag screw cut out of the femoral head, progression of hip arthritis, limb length discrepancy, symptomatic hardware, need for further surgery including hardware removal and conversion to arthroplas ty, DVT, PE, acute coronary event, pressure ulcers, urinary tract infection, failure to thrive, an inability to regain preinjury level of function, and possibly . The patient and their family understand these potential complications and also awknowledge that other less common complications are possible. They provided both their verbal and written consent to go forward with operative fixation of their hip fracture with an intramedullary hip screw. Description of Procedure: The patient was identified in preoperative holding and the correct operative extremity was marked with my initials. I reviewed the consent form with the patient and their family and all of their questions were answered. The patient was then brought back to the operating room by anesthesia. Anesthesia, preoperative antibiotics, and tranexamic acid were given by the anesthesia team while on the [facility]. Both ankles were padded with webril and boots for the [place] table were applied. The patient was then carefully transferred onto the [place] table. A perineal post was immediately placed. The contralateral arm was secured on a well-padded arm adams. The ipsilateral arm was draped across the chest and secured with a pillow, foam, and paper tape to allow access to the proximal femur. Nonsterile drapes were applied to the operative extremity. The height of the table was elevated and the contralateral extremity was dropped towards the floor to facilitate imaging. A timeout was performed identifying the correct patient, operative extremity, and procedure. Fluoroscopy was bro ught in to assess the fracture. A provisional reduction was performed using longitudinal traction, adduction, and internal rotation. An AP and lateral view were obtained to assess the reduction. The operative extremity was then prepped and draped in the standard sterile fashion. A straight incision was made at the tip of the greater trochanter and extended proximally for 3 cm. Skin and subcutaneous tissues were incised sharply. The underlying fascia was incised in line with the skin incision. An awl was placed just medial to the tip of the greater trochanter on the AP view and colinear with the canal on the lateral view. A 3.2 mm guide pin was then advanced into the proximal femur. The position of the guidepin was verified with fluoroscopy. An opening reamer and soft tissue cannula were placed over the guidepin and used to open the proximal femur to the level of the lesser trochanter. The 3.2 mm guide pin and opening reamer were removed. A short gamma nail was dispensed, hooked up to the targeting arm and I verified that the trochar through the targeting arm lined up with the slots on the nail. The nail was then impacted into the proximal femur until the appropriate depth had been reached. A small stab incision was made over the lateral aspect of the femur using the targeting arm as a reference for the lag screw. Incision was carried down to the skin and fascia down to the lateral cortex of the femur. The trocar was then placed up to the lateral cortex of the femur and a guidepin was placed in the center position on the AP view and centered in the femoral head on the lateral view. Once the position of the guidewire was verified, we reamed to appropriate depth and placed a lag screw over the guidewire and into the femoral head. The position of the lag screw was assessed with fluoroscopy. The guidewire was then removed from the femoral head. The set screw was placed proximally, brought fully down and then released a quarter turn to allow compression. A final stab incision was made over the lateral femur at the site of the distal interlocking screw, again using the targeting arm as a reference. The trocar and sleeve were placed to the lateral cortex of the femur. We then drilled and placed a distal interlocking screw. Final fluoroscopic images were taken showing excellent reduction of the fracture and appropriate position of the implants. All wounds were thoroughly irrigated and closed in layers. Sterile dressings were applied. The drapes were taken down, the patient was transferred off the [place] table, and was brought to recovery having tolerated the procedure well. Elma Guillermo PA-C was required as a skilled therapeutic recreation assistant for patient positioning, retraction, placement of implants, closure of wounds, and application of dressings. PLAN: The patient can weight-bear as tolerated on their operative extremity. 2 doses of postoperative antibiotics. DVT prophylaxis with aspirin 81 mg twice a day starting the day of surgery. Dressing change on postoperative day #2. Appreciate Internal Medical assistance with perioperative medical management. Discharge planning in process.
[2023-05-15] MEDS ORDERED: HYDROmorphone 0.5 MG/0.5 ML SYRINGE IVP PRN (09:31)
[2023-05-15] MEDS ORDERED: HYDROmorphone 1 MG/ML 1 ML SYRINGE IVP PRN (09:31)
[2023-05-15] MEDS ORDERED: ONDANSETRON 4 MG/2 ML VIAL IVP PRN (09:31)
[2023-05-15 11:34] LABS: Basophils % (A) 0 %; Eosinophils # (A) 0.2 k/uL (0-0.7); Eosinophils % (A) 2 %; HCT 31.4 % (34.0-46.0); HGB 9.8 gm/dL (11.4-16.0); Hypochromasia Slight; Lymphocytes # (A) 0.6 k/uL (1.0-4.8); Lymphocytes % (A) 5 %; MCH 32.6 pg (25.0-35.0); MCHC 31.1 g/dL (31.0-37.0); MCV 104.7 fL (80.0-100.0); Macrocytosis Slight; Mean Platelet Volume 8.4; Monocytes # (A) 0.8 k/uL (0-1.0); Monocytes % (A) 7 %; Neutrophils # (A) 9.8 k/uL (1.3-7.7); Neutrophils % (A) 86 %; Platelet Count 185 k/uL (150-450); RDW 13.2 % (11.5-15.5); WBC 11.5 k/uL (3.8-10.6)
--- NOTE | 2023-05-15 13:22 | XR ---
EXAMINATION TYPE: XR shoulder limited RT DATE OF EXAM: 05/15/2023 1:15 PM INDICATION: Patient age:Female; 82 years old; Reason for study: pain; COMPARISON: 02/27/2011 TECHNIQUE: The right shoulder was examined in frontal view. FINDINGS: Right shoulder arthroplasty changes hardware appears intact. No evidence of acute osseous pathology, joint dislocation, or soft tissue swelling. The remaining por tions of the visualized chest are unremarkable. IMPRESSION: No acute osseous pathology. Hardware appears intact and appropriate alignment on this single view.
--- NOTE | 2023-05-15 16:20 | P.PN ---
Subjective Progress Note Date: 05/15/23 82-year-old female admitted after a mechanical fall due to generalized weakness and poor functionality. Patient is found to have left hip fracture. Patient does have history of coronary artery disease has a coronary artery bypass grafting in the past presently doesn't have any chest pain EKGs did not show any ST-T wave changes. Patient doesn't have any signs or symptoms of congestive heart failure patient although is in some pain. 05/15/2023 Patient is evaluated today postoperative surgical repair for right hip fracture and underwent right hip surgical repair with short intramedullary hip screw. Patients main complaint is pain to the right shoulder this has been x-ray currently showed no acute osseous pathology with hardware appears intact and appropriate alignment on the single view. Patient is placed in an immobilizer sling and will ask orthopedics to evaluate further. White count today is 11.5, hemoglobin 9.8. Review of Systems Constitutional: Denied any fatigue denied any fever. Cardio vascular: denied any chest pain, palpitations Gastrointestinal: denied any nausea, vomiting, diarrhea Pulmonary: Denied any shortness of breath cough Neurologic denied any new focal deficits has significant pain to the right shoulder. All inpatient medications were reviewed and appropriate changes in these medications as dictated in the interval history and assessment and plan. PHYSICAL EXAMINATION: GENERAL: The patient is alert and oriented x3, not in any acute distress. Well developed, well nourished. HEENT: Pupils are round and equally reacting to light. EOMI. No scleral icterus. No conjunctival pallor. Normocephalic, atraumatic. No pharyngeal erythema. No thyromegaly. CARDIOVASCULAR: S1 and S2 present. No murmurs, rubs, or gallops. PULMONARY: Chest is clear to auscultation, no wheezing or crackles. ABDOMEN: Soft, nontender, nondistended, normoactive bowel sounds. No palpable organomegaly. MUSCULOSKELETAL: Deferred to orthopedic surgery EXTREMITIES: No cyanosis, clu bbing, or pedal edema. NEUROLOGICAL: Gross neurological examination did not reveal any focal deficits. SKIN: No rashes. Assessment and plan -Preoperative clearance: Patient is low to moderate operative risk for right hip arthroplasty. -Status post short intramedullary hip screw for the right intratrochanteric hip fracture -coronary artery disease with CABG in the past no evidence of congestive heart failure -CVA/TIA in the past -Hyperlipidemia -Hypertension -Peripheral vascular disease -Occasional alcohol use patient states she doesn't drink on a daily basis. For above-mentioned chronic medical problems patient will be resumed on appropriate home medications DVT prophylaxis: As per primary service GI prophylaxis Full code Plan Shoulder x-ray is reviewed and there is no osseous abnormality patient is offered an immobilizer sling for comfort and will ask orthopedics to evaluate this right shoulder which is patient's main complaint. PT OT will be placed on consultation for discharge planning. The impression and plan of care has been dictated by Tiffanie Garcia Nurse Practitioner as directed. Dr. Shanell MD I have performed a history and physical examination and medical decision making of this patient, discussed the same with the dictator, and agree with the dictators assessment and plan as written, documented as a scribe. Based on total visit time, I have performed more than 50% of this visit. Objective - Vital Signs Vital signs: Vital Signs Temp 98.8 F 05/15/23 13:35 Pulse 73 05/15/23 15:59 Resp 12 05/15/23 13:35 BP 135/77 05/15/23 15:59 Pulse Ox 100 05/15/23 15:59 FiO2 Intake & Output 05/14/23 05/15/23 05/15/23 18:59 06:59 18:59 Intake Total 1050 Output Total 1475 100 350 Balance -1475 -100 700 Weight 68.039 kg Intake: IV 1050 Output: Urine 1475 100 250 Estimated Blood Loss 100 Other: Voiding Method Indwelling Catheter Indwelling Catheter - Labs CBC & Chem 7: 05/15/23 11:11 05/14/23 00:10 Labs: Abnormal Lab Results - Last 24 Hours (Table) 05/15/23 Range/Units 11:11 WBC 11.5 H (3.8-10.6) k/uL RBC 3.00 L (3.80-5.40) m/uL Hgb 9.8 L (11.4-16.0) gm/dL Hct 31.4 L (34.0-46.0) % MCV 104.7 H (80.0-100.0) fL Neutrophils # 9.8 H (1.3-7.7) k/uL Lymphocytes # 0.6 L (1.0-4.8) k/uL Assessment and Plan Time with Patient: Less than 30
[2023-05-15] MEDS: SENNOSIDES-DOCUSATE SODIUM 1 EACH TAB PO SCH (21:04)
[2023-05-15] MEDS: HYDROcodone/APAP 5-325MG 1 EACH TAB PO PRN (21:06)
[2023-05-16] MEDS: HYDROmorphone 1 MG/ML 1 ML SYRINGE IVP PRN (01:07)
[2023-05-16] MEDS: HYDROmorphone 0.5 MG/0.5 ML SYRINGE IVP PRN ×3 (05:46→23:19)
[2023-05-16] MEDS: carvediloL 6.25 MG TAB PO SCH ×2 (05:54→17:17)
[2023-05-16 06:40] LABS: African American GFR (CKD) 70 (>60 ml/min/1.73 sqM); Anion Gap 6 mmol/L; Blood Urea Nitrogen 18 mg/dL (7-17); Calcium 8.6 mg/dL (8.4-10.2); Carbon Dioxide 20 mmol/L (22-30); Chloride 110 mmol/L (98-107); Glucose 124 mg/dL (74-99); Non-African American GFR(CKD) 60 (>60 ml/min/1.73 sqM); Potassium 4.1 mmol/L (3.5-5.1); Sodium 136 mmol/L (137-145)
[2023-05-16 07:18] LABS: Basophils % (A) 0 %; Eosinophils # (A) 0.2 k/uL (0-0.7); Eosinophils % (A) 2 %; HCT 27.4 % (34.0-46.0); HGB 8.8 gm/dL (11.4-16.0); Lymphocytes % (A) 10 %; MCH 33.6 pg (25.0-35.0); MCHC 32.1 g/dL (31.0-37.0); MCV 104.4 fL (80.0-100.0); Macrocytosis Slight; Mean Platelet Volume 8.4; Monocytes % (A) 10 %; Neutrophils # (A) 7.6 k/uL (1.3-7.7); Neutrophils % (A) 77 %; Platelet Count 173 k/uL (150-450); RBC 2.62 m/uL (3.80-5.40); RDW 12.9 % (11.5-15.5); WBC 9.8 k/uL (3.8-10.6)
[2023-05-16] MEDS: SODIUM CHLORIDE 0.9% 1,000 ML IV SCH ×3 (07:47→12:16)
[2023-05-16] MEDS: CHOLECALCIFEROL 125 MCG (5000 IU) TABLET PO SCH (07:47)
[2023-05-16] MEDS: FAMOTIDINE 20 MG TAB PO SCH (07:48)
[2023-05-16] MEDS: ATORVASTATIN 80 MG TAB PO SCH (07:48)
[2023-05-16] MEDS: CYANOCOBALAMIN 500 MCG TAB PO SCH (07:48)
[2023-05-16] MEDS: HYDROcodone/APAP 5-325MG 1 EACH TAB PO PRN ×3 (07:48→18:28)
[2023-05-16] MEDS: NON FORMULARY DRUG (Omega-3 Fatty Acids [Omega-3] 1,000 MG Capsule) PO SCH (07:50)
[2023-05-16] MEDS: VALSARTAN 160 MG TAB PO SCH (07:50)
--- NOTE | 2023-05-16 08:53 | P.PN ---
Subjective Progress Note Date: 05/16/23 The patient was seen and evaluated this morning at bedside. She is complaining of "pain all over" but seems to commit complaining most of pain in her right shoulder, lower neck, and ankles. She denies having pre-existing shoulder pain. The patient states she unsure of her shoulder hurt after her fall and prior to surgery, but says that it is more painful since surgery. She does have a history of shoulder surgery on that side by Dr. Dunn remotely. Objective - Vital Signs Vital signs: Vital Signs Temp 98.4 F 05/16/23 07:35 Pulse 76 05/16/23 07:35 Resp 16 05/16/23 07:35 BP 121/71 05/16/23 07:35 Pulse Ox 94 L 05/16/23 07:35 FiO2 Intake & Output 05/15/23 05/16/23 05/16/23 18:59 06:59 18:59 Intake Total 1050 Output Total 830 450 Balance 220 -450 Intake: IV 1050 Output: Urine 730 450 Estimated Blood Loss 100 Other: Voiding Method Indwelling Catheter Indwelling Catheter - Exam The patient is resting in bed. She is in no apparent distress while resting. Right upper extremity: The patient has swelling, mild ecchymosis and tenderness at the base of her cervical spine and in her right trapezius. There is a healed incision over the anterior aspect of the shoulder from prior deltopectoral approach to the shoulder. She has mild tenderness diffusely over the shoulder and pain with passive range of motion. She has no tenderness in the elbow or hand. Right lower extremity: There are clean-appearing surgical dressings over the lateral aspect of the hip and thigh. Her thigh is soft and compressible. She has diffuse tenderness throughout the right leg. Motor and sensory function are intact. - Labs CBC & Chem 7: 05/16/23 05:59 05/16/23 05:59 Labs: Abnormal Lab Results - Last 24 Hours (Table) 05/15/23 05/16/23 05/16/23 Range/Units 11:11 05:59 05:59 WBC 11.5 H (3.8-10.6) k/uL RBC 3.00 L 2.62 L (3.80-5.40) m/uL Hgb 9.8 L 8.8 L (11.4-16.0) gm/dL Hct 31.4 L 27.4 L (34.0-46.0) % MCV 104.7 H 104.4 H (80.0-100.0) fL Neutrophils # 9.8 H (1.3-7.7) k/uL Lymphocytes # 0.6 L (1.0-4.8) k/uL Sodium 136 L (137-145) mmol/L Chloride 110 H (98-107) mmol/L Carbon Dioxide 20 L (22-30) mmol/L BUN 18 H (7-17) mg/dL Glucose 124 H (74-99) mg/dL Assessment and Plan Assessment: Postoperative day #1 status post right hip gamma nail, doing well Right shoulder and paraspinal muscle pain, previous shoulder hemiarthroplasty by Dr. Dunn Plan: 1. The patient can weight-bear as tolerated on her right leg. I would like her to mobilize up out of bed and into a chair with a walker. 2. In regards to the patient's right shoulder and paraspinal muscle tenderness I think this is likely from positioning during surgery and her x-rays are negative. I would recommend ice and a sling for comfort followed by gentle motion with therapy. If this continues to be an issue for her, she can follow- up with Dr. Dunn as he previously performed surgery on this shoulder. 3. Continue treatment as outlined yesterday. Discharge planning is in process.
--- NOTE | 2023-05-16 11:39 | XR ---
EXAMINATION TYPE: XR shoulder complete RT DATE OF EXAM: 05/16/2023 11:05 AM INDICATION: Patient age:Female; 82 years old; Reason for study: pain; COMPARISON: 05/15/2023 TECHNIQUE: The right shoulder was examined in AP, internally rotated and scapular Y projections. FINDINGS: Right shoulder arthroplasty changes. No evidence for fracture. No evidence of acute osseous pathology, joint dislocation, or soft tissue swelling. The remaining por tions of the visualized chest are unremarkable. IMPRESSION: 1. Postsurgical changes shoulder No evidence of fracture. If there remains concern consider CT. 2. No acute osseous pathology.
--- NOTE | 2023-05-16 14:11 | P.PN ---
Subjective Progress Note Date: 05/16/23 82-year-old female admitted after a mechanical fall due to generalized weakness and poor functionality. Patient is found to have left hip fracture. Patient does have history of coronary artery disease has a coronary artery bypass grafting in the past presently doesn't have any chest pain EKGs did not show any ST-T wave changes. Patient doesn't have any signs or symptoms of congestive heart failure patient although is in some pain. 05/15/2023 Patient is evaluated today postoperative surgical repair for right hip fracture and underwent right hip surgical repair with short intramedullary hip screw. Patients main complaint is pain to the right shoulder this has been x-ray currently showed no acute osseous pathology with hardware appears intact and appropriate alignment on the single view. Patient is placed in an immobilizer sling and will ask orthopedics to evaluate further. White count today is 11.5, hemoglobin 9.8. 05/16/2023 Patient is evaluated today postoperative day #1 right hip surgical repair. Patient currently reports that pain has improved and currently controlled on CURRENT REGIMEN. FAR HER RIGHT SHOULDER PAIN PATIENT DID HAVE AN X-RAY THAT WAS SHOWING NO ACUTE OSSEOUS ABNORMALITIES. THIS IS LIKELY POSITIONAL RELATED TO THE SURGERY. There was mention that patient may drink alcohol frequently and patient reports once every few months nothing daily will be monitored closely for alcohol withdrawal. Labs reveal a white count of 9.8, hemoglobin stable at 8.8, sodium 136, BUN 18, creatinine 0.90. Review of Systems Constitutional: Denied any fatigue denied any fever. Cardio vascular: denied any chest pain, palpitations Gastrointestinal: denied any nausea, vomiting, diarrhea Pulmonary: Denied any shortness of breath cough Neurologic denied any new focal deficits, reports pain has improved today. All inpatient medications were reviewed and appropriate changes in these medications as dictated in the interval history and assessment and plan. PHYSICAL EXAMINATION: GENERAL: The patient is alert and oriented x3, not in any acute distress. Well developed, well nourished. HEENT: Pupils are round and equally reacting to light. EOMI. No scleral icterus. No conjunctival pallor. Normocephalic, atraumatic. No pharyngeal erythema. No thyromegaly. CARDIOVASCULAR: S1 and S2 present. No murmurs, rubs, or gallops. PULMONARY: Chest is clear to auscultation, no wheezing or crackles. ABDOMEN: Soft, nontender, nondistended, normoactive bowel sounds. No palpable organomegaly. MUSCULOSKELETAL: Post surgical right hip dressing intact EXTREMITIES: No cyanosis, clubbing, or pedal edema. NEUROLOGICAL: Gross neurological examination did not reveal any focal deficits. SKIN: No rashes. Assessment and plan -Preoperative clearance: Patient is low to moderate operative risk for right hip arthroplasty. -Status post short intramedullary hip screw for the right intratrochanteric hip fracture -coronary artery disease with CABG in the past no evidence of congestive heart failure -CVA/TIA in the past -Hyperlipidemia -Hypertension -Peripheral vascular disease -Occasional alcohol use patient states she doesn't drink on a daily basis. For above-mentioned chronic medical problems patient will be resumed on appropriate home medications DVT prophylaxis: As per primary service GI prophylaxis Full code Plan Shoulder x-ray is reviewed and there is no osseous abnormality patient is offered an immobilizer sling for comfort and will ask orthopedics to evaluate this right shoulder which is patient's main complaint. PT OT will be placed on consultation for discharge planning. Patient reports pain is improved on current regimen and recommend to increase activity level and incentive spirometer 10 x an hour while awake. The impression and plan of care has been dictated by Tiffanie Garcia Nurse Practitioner as directed. Dr. Shanell MD I have performed a history and physical examination and medical decision making of this patient, discussed the same with the dictator, and agree with the dictators assessment and plan as written, documented as a scribe. Based on total visit time, I have performed more than 50% of this visit. Objective - Vital Signs Vital signs: Vital Signs Temp 97.8 F 05/16/23 13:44 Pulse 71 05/16/23 13:44 Resp 16 05/16/23 13:44 BP 118/64 05/16/23 13:44 Pulse Ox 93 L 05/16/23 13:44 FiO2 Intake & Output 05/15/23 05/16/23 05/16/23 18:59 06:59 18:59 Intake Total 1050 Output Total 830 450 Balance 220 -450 Intake: IV 1050 Output: Urine 730 450 Estimated Blood Loss 100 Other: Voiding Method Indwelling Catheter Indwelling Catheter Indwelling Catheter - Labs CBC & Chem 7: 05/16/23 05:59 05/16/23 05:59 Labs: Abnormal Lab Results - Last 24 Hours (Table) 05/16/23 05/16/23 Range/Units 05:59 05:59 RBC 2.62 L (3.80-5.40) m/uL Hgb 8.8 L (11.4-16.0) gm/dL Hct 27.4 L (34.0-46.0) % MCV 104.4 H (80.0-100.0) fL Sodium 136 L (137-145) mmol/L Chloride 110 H (98-107) mmol/L Carbon Dioxide 20 L (22-30) mmol/L BUN 18 H (7-17) mg/dL Glucose 124 H (74-99) mg/dL
[2023-05-16] MEDS: SENNOSIDES-DOCUSATE SODIUM 1 EACH TAB PO SCH (20:05)
[2023-05-17] MEDS: SODIUM CHLORIDE 0.9% 1,000 ML IV SCH ×6 (00:53→23:22)
[2023-05-17] MEDS: HYDROmorphone 0.5 MG/0.5 ML SYRINGE IVP PRN ×3 (04:22→19:41)
[2023-05-17] MEDS: carvediloL 6.25 MG TAB PO SCH ×2 (05:53→16:36)
[2023-05-17 07:40] LABS: Basophils % (A) 0 %; Eosinophils # (A) 0.5 k/uL (0-0.7); Eosinophils % (A) 5 %; HCT 26.4 % (34.0-46.0); HGB 8.4 gm/dL (11.4-16.0); Lymphocytes # (A) 1.4 k/uL (1.0-4.8); Lymphocytes % (A) 15 %; MCH 32.8 pg (25.0-35.0); MCHC 31.9 g/dL (31.0-37.0); MCV 102.7 fL (80.0-100.0); Macrocytosis Slight; Mean Platelet Volume 8.5; Monocytes # (A) 0.8 k/uL (0-1.0); Monocytes % (A) 8 %; Neutrophils # (A) 6.4 k/uL (1.3-7.7); Neutrophils % (A) 69 %; Platelet Count 189 k/uL (150-450); RBC 2.57 m/uL (3.80-5.40); RDW 13.1 % (11.5-15.5); WBC 9.3 k/uL (3.8-10.6)
[2023-05-17] MEDS: ATORVASTATIN 80 MG TAB PO SCH (09:46)
[2023-05-17] MEDS: CYANOCOBALAMIN 500 MCG TAB PO SCH (09:46)
[2023-05-17] MEDS: ASPIRIN 81 MG PO SCH ×2 (09:46→20:09)
[2023-05-17] MEDS: FAMOTIDINE 20 MG TAB PO SCH (09:47)
[2023-05-17] MEDS: NON FORMULARY DRUG (Omega-3 Fatty Acids [Omega-3] 1,000 MG Capsule) PO SCH (09:47)
[2023-05-17] MEDS: VALSARTAN 160 MG TAB PO SCH (09:47)
[2023-05-17] MEDS: CHOLECALCIFEROL 125 MCG (5000 IU) TABLET PO SCH (09:47)
[2023-05-17] MEDS: HYDROcodone/APAP 5-325MG 1 EACH TAB PO PRN ×3 (09:55→22:53)
--- NOTE | 2023-05-17 12:45 | P.PN ---
Subjective Progress Note Date: 05/17/23 This patient is an 82- year old female who is status-post right hip gamma nail on 05/15/23. Today is post-op day #2. Patient is examined bedside with Dr. Tavares. She states she is having minimal pain in the right hip, she continues to complain of right shoulder pain. Patient is awaiting evaluation by physical therapy today. Objective - Vital Signs Vital signs: Vital Signs Temp 98.4 F 05/17/23 06:59 Pulse 69 05/17/23 06:59 Resp 19 05/17/23 06:59 BP 150/66 05/17/23 06:59 Pulse Ox 96 05/17/23 06:59 FiO2 Intake & Output 05/16/23 05/17/23 05/17/23 18:59 06:59 18:59 Output Total 700 1400 Balance -700 -1400 Output: Urine 700 1400 Other: Voiding Method Indwelling Catheter Indwelling Catheter - Exam On examination, patient is sitting up in bed in no acute distress. She is alert and answers questions appropriately. On inspection of the right hip, there are clean, dry, intact surgical dressings in place. Mild swelling of the thigh, t high is soft and compressible. Motor and sensory function intact RLE. RLE warm and well perfused. Calf non-tender. - Labs CBC & Chem 7: 05/17/23 07:21 05/16/23 05:59 Labs: Abnormal Lab Results - Last 24 Hours (Table) 05/17/23 Range/Units 07:21 RBC 2.57 L (3.80-5.40) m/uL Hgb 8.4 L (11.4-16.0) gm/dL Hct 26.4 L (34.0-46.0) % MCV 102.7 H (80.0-100.0) fL Assessment and Plan Assessment: Status-post right hip gamma nail on 05/15/23. Post-op day #2. Plan: - Weight bear to tolerance on operative extremity with a walker. Up with assi stance. - Physical therapy for mobilization to chair. - Keep surgical dressings in place. - Pain management as needed. - Aspirin 81mg BID for DVT prophylaxis. - If patient continues to experience right shoulder pain, will consider consulting Dr. Gonzalez inpatient. Otherwise, she may follow-up with him outpatient for further evaluation of her right shoulder pain. - Case management consulted for discharge planning. Anticipate discharge to rehab when auth is obtained.
[2023-05-17] MEDS: PANTOPRAZOLE 40 MG TABLET PO SCH (16:36)
[2023-05-17] MEDS: SENNOSIDES-DOCUSATE SODIUM 1 EACH TAB PO SCH (20:09)
[2023-05-18] MEDS: HYDROmorphone 0.5 MG/0.5 ML SYRINGE IVP PRN (02:58)
--- NOTE | 2023-05-18 03:52 | PN ---
PROGRESS NOTE DATE OF SERVICE: 05/17/2023 SUBJECTIVE: This is an 82-year-old woman, who was admitted after right hip fracture, is being closely monitored. No chest pain. No palpitations. No fever. OBJECTIVE: VITAL SIGNS: Pulse is 70, blood pressure 120/70, respirations 19. CHEST: Clear to auscultation. CARDIOVASCULAR: S1, S2. ABDOMEN: Soft. NERVOUS SYSTEM: Nonfocal. LABORATORY DATA: Reviewed. ASSESSMENT: 1. Right hip fracture, status post right hip common nail. 2. Coronary artery disease, coronary artery bypass graft. 3. History of cerebrovascular accident. 4. Hypertension. 5. Hyperlipidemia. 6. Multiple medical issues. RECOMMENDATIONS: Recommend to continue current management and continue symptomatic treatment. Otherwise, continue the DVT prophylaxis. Closely follow with Orthopedic Surgery. Further recommendations to follow. MMODL / IJN: [id number] /
[2023-05-18] MEDS: carvediloL 6.25 MG TAB PO SCH ×2 (05:46→16:48)
[2023-05-18] MEDS: HYDROcodone/APAP 5-325MG 1 EACH TAB PO PRN (05:46)
[2023-05-18] MEDS: PANTOPRAZOLE 40 MG TABLET PO SCH (05:50)
[2023-05-18] MEDS: NON FORMULARY DRUG (Omega-3 Fatty Acids [Omega-3] 1,000 MG Capsule) PO SCH (08:41)
[2023-05-18] MEDS: CYANOCOBALAMIN 500 MCG TAB PO SCH (08:43)
[2023-05-18] MEDS: VALSARTAN 160 MG TAB PO SCH (08:44)
[2023-05-18] MEDS: FAMOTIDINE 20 MG TAB PO SCH (08:44)
[2023-05-18] MEDS: ASPIRIN 81 MG PO SCH ×2 (08:44→21:08)
[2023-05-18] MEDS: ATORVASTATIN 80 MG TAB PO SCH (08:44)
[2023-05-18] MEDS: CHOLECALCIFEROL 125 MCG (5000 IU) TABLET PO SCH (08:44)
[2023-05-18] MEDS: SODIUM CHLORIDE 0.9% 1,000 ML IV SCH ×2 (08:46→18:26)
[2023-05-18] MEDS: HYDROcodone/APAP 7.5-325MG 1 EACH TAB PO PRN ×2 (11:31→16:14)
--- NOTE | 2023-05-18 11:58 | P.PN ---
Subjective Progress Note Date: 05/18/23 This patient is an 82- year old female who is status-post right hip gamma nail on 05/15/23. Today is post-op day #3. Patient is examined bedside with Dr. Tavares. Per nursing, patient is requiring IV diluadid q3 for pain control. Patient states she is not having pain in the hip, it is localized along her shoulder and neck. No complaints in regard to her right hip today. Vital signs stable. Objective - Vital Signs Vital signs: Vital Signs Temp 98.5 F 05/18/23 07:05 Pulse 64 05/18/23 07:05 Resp 18 05/18/23 08:07 BP 123/73 05/18/23 07:05 Pulse Ox 98 05/18/23 07:05 FiO2 Intake & Output 05/17/23 05/18/23 05/18/23 18:59 06:59 18:59 Intake Total 250 Output Total 675 850 Balance -675 -600 Intake: Oral 250 Output: Urine 675 850 Uretheral ([place]) 150 Other: Voiding Method Indwelling Catheter External Catheter External Catheter # Voids 0 - Exam On examination, patient is sitting up in the bedside chair in no acute distress. She is alert and answers questions appropriately. On inspection of the right hip, there are clean, dry, intact surgical dressings in place. Mild swelling of the thigh, thigh is soft and compressible. Motor and sensory function intact RLE. RLE warm and well perfused. Calf non-tender. On inspection of the right shoulder and neck, there is mild swelling and tenderness at the base of her cervical spine and in her right trapezius. There is a healed incision over the anterior aspect of the shoulder. There is minimal pain with palpation of the shoulder today with minimal pain with passive range of motion. She has no tenderness in the elbow or hand. - Labs CBC & Chem 7: 05/17/23 07:21 05/16/23 05:59 Assessment and Plan Assessment: Status-post right hip gamma nail on 05/15/23. Post-op day #3. Plan: - Weight bear to tolerance on operative extremity with a walker. Up with assistance. - Physical therapy for mobilization to chair. - Keep surgical dressings in place. - Pain management as needed. - Aspirin 81mg BID for DVT prophylaxis. - Oral pain medication increased to [place] 7.5 q4. Pain appears to be localized to the neck and paraspinal muscles today. Will obtain C-spine x-rays and review with our spine surgeon Dr. Lomeli. - Case management consulted for discharge planning. Anticipate discharge to rehab when auth is obtained.
--- NOTE | 2023-05-18 12:28 | PN ---
PROGRESS NOTE DATE OF SERVICE: 05/18/2023 SUBJECTIVE: This 82-year-old woman was admitted after right hip fracture and surgery, awaiting ECF rehab. No chest pain. No palpitation. OBJECTIVE: VITAL SIGNS: Pulse is 64, blood pressure 120/57, respirations 18. CHEST: Clear to auscultation. CARDIOVASCULAR: S1 and S2. ABDOMEN: Soft. LEGS: Status post surgery. LABORATORY DATA: Reviewed. ASSESSMENT: 1. Right hip fracture, status post right hip nailing. 2. Coronary artery disease with coronary artery bypass grafting. 3. History of cerebrovascular accident. 4. Hypertension. 5. Hyperlipidemia. 6. Multiple medical issues. RECOMMENDATIONS: Recommend to continue current management and continue symptomatic treatment. Closely follow with Orthopedic Surgery. DVT prophylaxis. Further recommendations to follow. ECF rehab. KYLEE / NILSN: [id number] /
--- NOTE | 2023-05-18 12:32 | XR ---
EXAMINATION TYPE: XR cervical spine comp DATE OF EXAM: 05/18/2023 COMPARISON: NONE HISTORY: Pain TECHNIQUE: Four views are submitted. FINDINGS: The odontoid is intact. There are no compression deformities. The prevertebral soft tissue structur es are within normal limits. Diffuse osteopenia with severe multilevel facet arthropathy. There is a grade 1 anterior listhesis of C3 relative to C4 and C4 relative to C5. Severe degenerative disc dise ase C6-C7 with mild to moderate changes C4-5 and C5-C6. There is severe multilevel facet arthropathy. Multilevel foraminal encroachment suspected. There is a sternotomy changes and prosthetic shoulder noted on the lateral view. Dense vascular calci fications of the carotid arteries. IMPRESSION: 1. Diffuse osteopenia with multilevel degenerative disc disease and foraminal encroachment recommend MRI. 2. Dense calcification in the bilateral soft tissue the neck most consistent with carotid bifurcation atherosclerotic disease.
[2023-05-18] MEDS: HYDROmorphone 1 MG/ML 1 ML SYRINGE IVP PRN (21:08)
[2023-05-18] MEDS: SENNOSIDES-DOCUSATE SODIUM 1 EACH TAB PO SCH (21:08)
[2023-05-19] MEDS: PANTOPRAZOLE 40 MG TABLET PO SCH (06:44)
[2023-05-19] MEDS: HYDROcodone/APAP 7.5-325MG 1 EACH TAB PO PRN ×2 (06:44→13:11)
[2023-05-19] MEDS: carvediloL 6.25 MG TAB PO SCH (06:44)
[2023-05-19] MEDS: SODIUM CHLORIDE 0.9% 1,000 ML IV SCH (06:46)
[2023-05-19 07:49] VITALS: BP 131/76; PULSE 69; RESP 18; TEMP 98.1
--- NOTE | 2023-05-19 08:16 | P.DS ---
Providers Date of admission: 05/14/23 02:51 Expected date of discharge: 05/19/23 Attending physician: Mitchell Tavares Consults: 05/14/23 02:51 Consult Physician Routine Consulting Provider: Theresa Boyce Consult Reason/Comments: medicine consult Do you want consulting provider notified?: Already Contacted Primary care physician: Sima Arbour Hospital Course: This patient is an 72-year-old female who sustained a ground-level fall on 05/13/23. X-rays in the emergency department revealed a right intertrochanteric hip fracture. Patient was admitted under the care on Dr. Tavares for surgical intervention with a consult placed an internal medicine for preoperative medical clearance. Patient underwent operative fixation of right intertrochanteric hip fracture with intramedullary hip screw and 05/15/23. The procedure was performed without complication or sequelae. Vital signs and labs are stable on postoperative day #4. C-spine x-rays were obtained yesterday due to neck pain complaints, x-rays were reviewed by spine surgeon Dr. Lomeli and show no acute fractures with degenerative changes. No acute abnormalities. Patient is examined bedside this morning with Dr. Tavares. She is up to the bedside chair. She states the pain in her right hip is well controlled at this time. Patient has worked with physical therapy. Patient is tolerating her diet. No new complaints the day of discharge. On examination, patient is sitting up in the bedside chair in no apparent distress. She is alert and oriented 3. On inspection of the right hip, there is a clean, dry, intact surgical dressings in place. Motor and sensory function is intact of the right lower extremity. Right lower extremity is warm and well perfused. Calf is nontender. Patient is discharged to rehab today, pending medical clearance. Please see med rec for accurate list of discharge medications. She should follow-up in the office in 2 weeks at [facility]. Patient Condition at Discharge: Fair Plan - Discharge Summary Discharge Rx Participant: Yes New Discharge Prescriptions: New Aspirin 81 mg PO BID 30 Days #60 tab HYDROcodone/APAP 5-325MG [[place] 5-325] 1 tab PO Q6HR PRN 7 Days #28 tab PRN Reason: Pain Docusate [Colace] 100 mg PO BID #60 capsule No Action Valsartan [Diovan] 160 mg PO DAILY Atorvastatin Calcium [Lipitor] 80 mg PO DAILY Cholecalciferol [Vitamin D3 (125 Mcg = 5000 Iu)] 125 mcg PO DAILY Denosumab [Prolia] 60 mg SQ Q180D Aspirin EC [Ecotrin Low Dose] 81 mg PO DAILY Nitroglycerin Sl Tabs [Nitrostat] 0.4 mg SL Q5M PRN PRN Reason: Chest Pain [place]-3 Fatty Acids [[place]-3] 1,000 mg PO DAILY Cyanocobalamin (Vitamin B-12) [Vitamin B-12] 1,000 mcg PO DAILY Mirabegron [Myrbetriq] 50 mg PO DAILY carvediloL [Coreg] 6.25 mg PO BID Discharge Medication List Atorvastatin Calcium [Lipitor] 80 mg PO DAILY 05/02/22 [History] Cyanocobalamin (Vitamin B-12) [Vitamin B-12] 1,000 mcg PO DAILY 05/02/22 [History] Mirabegron [Myrbetriq] 50 mg PO DAILY 05/02/22 [History] [place]-3 Fatty Acids [[place]-3] 1,000 mg PO DAILY 05/02/22 [History] Valsartan [Diovan] 160 mg PO DAILY 05/02/22 [History] Aspirin EC [Ecotrin Low Dose] 81 mg PO DAILY 05/14/23 [History] Cholecalciferol [Vitamin D3 (125 Mcg = 5000 Iu)] 125 mcg PO DAILY 05/14/23 [History] Denosumab [Prolia] 60 mg SQ Q180D 05/14/23 [History] Nitroglycerin Sl Tabs [Nitrostat] 0.4 mg SL Q5M PRN 05/14/23 [History] carvediloL [Coreg] 6.25 mg PO BID 05/14/23 [History] Aspirin 81 mg PO BID 30 Days #60 tab 05/17/23 [Rx] Docusate [Colace] 100 mg PO BID #60 capsule 05/17/23 [Rx] HYDROcodone/APAP 5-325MG [[place] 5-325] 1 tab PO Q6HR PRN 7 Days #28 tab 05/17/23 [Rx] Follow up Appointment(s)/Referral(s): Sima Damon PAC [Primary Care Provider] - 1-2 days Mitchell Tavares MD [Medical Doctor] - 05/31/23 10:30 am Activity/Diet/Wound Care/Special Instructions: Weight bear to tolerance on operative extremity with a walker. Up with assistance. Keep operative dressings in place until follow-up in the office. Take pain medications as needed. Take aspirin 81mg twice a day x 4 weeks for blood clot prevention. Follow-up in the office at [facility] in two weeks. Call the office with any questions or concerns, Discharge Disposition: TRANSFER TO SNF/ECF
[2023-05-19] MEDS: HYDROmorphone 1 MG/ML 1 ML SYRINGE IVP PRN (09:11)
[2023-05-19] MEDS: CHOLECALCIFEROL 125 MCG (5000 IU) TABLET PO SCH (09:15)
[2023-05-19] MEDS: CYANOCOBALAMIN 500 MCG TAB PO SCH (09:15)
[2023-05-19] MEDS: ASPIRIN 81 MG PO SCH (09:15)
[2023-05-19] MEDS: VALSARTAN 160 MG TAB PO SCH (09:15)
[2023-05-19] MEDS: ATORVASTATIN 80 MG TAB PO SCH (09:15)
[2023-05-19] MEDS: FAMOTIDINE 20 MG TAB PO SCH (09:16)
[2023-05-19] MEDS: NON FORMULARY DRUG (Omega-3 Fatty Acids [Omega-3] 1,000 MG Capsule) PO SCH (09:36)
--- NOTE | 2023-05-19 10:09 | CDI ---
Documentation Clarification Form Date: 05/19/2023 09:30:00 AM From: Jayna Silva RN, CCDS Admit Date: 05/14/2023 02:51:00 AM Patient Name: Ban Reynoso Visit Number: [id number] Discharge Date: ATTENTION: The Clinical Documentation Specialists (CDI) and [facility] Coding Staff appreciate your assistance in clarifying documentation. Please respond to the clarification below the line at the bottom and electronically sign. The CDI & [facility] Coding staff will review the response and follow-up if needed. Please note: Queries are made part of the Legal Health Record. If you have any questions, please contact the author of this message via ITS. Dr. Mitchell Tavares Your patient had HGB on admission 05/14 of 10.6 on 05/17 HGB 8.4. Based on this information and the findings below, is there an additional diagnosis that is clinically appropriate for this patient? Patient history/risk factors: Coronary artery disease, CVA, Hyperlipidemia, Hypertension, Vascular disorder Clinical Indicators: 82-year-old female present after she fell onto her right hip with x-ray in ED revealed a right intertrochanteric hip fracture. 05/15/2023 Procedure: Operative fixation of right intertrochanteric hip fracture with short intramedullary hip screw. Estimated blood loss (ml):100 05/17 VS: (06:59) 150/66 69 19 98.4 96 % RA 05/14 HGB10.6, HCT 32.5 05/15 HGB 9.8, HCT 31.4 05/16 HGB 8.8, HCT 27.4 05/17 HGB 8.4, HCT 26.4 Treatment: Daily CBC Monitoring .9 NS@ 75 ML/HR05/15-05/17 Is there an additional diagnosis that is clinically appropriate for this patient? [ X ] Acute blood loss Anemia, expected. [ ] Other explanation for drop in the HGB value (specify) [ ] Decrease in HGB, possible dilutional [ ] No additional diagnosis/Not clinically significant [ ] Unable to determine [ ] Other, please specify dalila CHO
--- NOTE | 2023-05-19 12:54 | PN ---
PROGRESS NOTE DATE OF SERVICE: 05/19/2023 SUBJECTIVE: This 82-year-old woman who was admitted with right hip fracture, who is being closely monitored. No chest pain, no palpitations, no fever. OBJECTIVE: VITAL SIGNS: Pulse is 69, blood pressure 131/76, respirations 18. CHEST: Clear to auscultation. CARDIOVASCULAR: S1, S2. ABDOMEN: Soft. LEGS: Status post surgery. LABORATORY DATA: Noted. ASSESSMENT: 1. Right hip fracture, status post right hip nailing. 2. CAD, CABG. 3. History of CVA. 4. Hypertension. 5. Hyperlipidemia. 6. Multiple medical issues. RECOMMENDATIONS: Recommended to continue current medical management, continue symptomatic treatment. Recommended to continue DVT prophylaxis per Ortho. Follow with primary physician and followup labs in the outpatient setting. Further recommendations to follow. MMODL / IJN: [id number] /
== END 2023-05-19 15:48 | DRG 481 ==
LOC: EC 22:56 → 4SSUR 05-14 02:51
PROVIDERS: ADMIT Orthopaedic Surgery; ATTEND Orthopaedic Surgery
PROC: 0QS606Z Reposition Right Upper Femur with Intramedullary Internal Fixation Device, Open Approach (ICD-10-PCS; principal; 2023-05-15 08:00)
DX: S72.144A Nondisplaced intertrochanteric fracture of right femur, initial encounter for closed fracture (principal); D62 Acute posthemorrhagic anemia; Z16.24 Resistance to multiple antibiotics; E78.5 Hyperlipidemia, unspecified; I25.10 Atherosclerotic heart disease of native coronary artery without angina pectoris; I25.2 Old myocardial infarction; I73.9 Peripheral vascular disease, unspecified; I10 Essential (primary) hypertension; M19.90 Unspecified osteoarthritis, unspecified site; R73.03 Prediabetes; M25.572 Pain in left ankle and joints of left foot; M25.571 Pain in right ankle and joints of right foot; M25.511 Pain in right shoulder; Z79.899 Other long term (current) drug therapy; Z79.82 Long term (current) use of aspirin; Z86.73 Personal history of transient ischemic attack (TIA), and cerebral infarction without residual deficits; Z86.19 Personal history of other infectious and parasitic diseases; Z87.440 Personal history of urinary (tract) infections; Z95.1 Presence of aortocoronary bypass graft; Z96.611 Presence of right artificial shoulder joint; Y92.038 Other place in apartment as the place of occurrence of the external cause; W01.0XXA Fall on same level from slipping, tripping and stumbling without subsequent striking against object, initial encounter
CPT/HCPCS: 36415; 51702; 70450; 71045; 72050; 72125; 72131; 72170; 73501; 80048; 85025; 85610; 85730; 93005; 96374; 96375; 96376; 99285

== ENCOUNTER 2024-06-05 21:04 | Inpatient (IN) | payer MEDICARE ==
--- NOTE | 2024-06-05 21:14 | ED ---
General Adult HPI - General Source: RN notes reviewed <Blanca Mcwilliams - Last Filed: 06/06/24 00:24> - General Source: RN notes reviewed <Edin Bray - Last Filed: 06/06/24 02:09> - General Stated complaint: Fall Time Seen by Provider: 06/05/24 21:13 - History of Present Illness Initial comments: 83-year-old female presenting to the ED with chief complaint of fall. States she was walking in her house this afternoon when both of her legs went out from underneath her, causing her to fall backwards and hit the back of her head. Denies losing consciousness. States she could not get up after this fall and laid on the floor for several hours until help arrived. Denies blood thinners. She does admit that over the past couple days she has had more swelling in her legs than usual. She states she is having vision changes since the fall that she describes as "polka dots" in her line of vision in both eyes. She is also endorsing some neck pain. Denies chest pain or shortness of breath. Denies other injuries. (Blanca Mcwilliams) Quick note 83-year-old female presented to the ED with a chief complaint of fall. Patient notes over the past few days she has noticed some swelling of her legs. Today, states she normally walks with a walker and when she was trying to walk both her legs went out from underneath her causing her to fall backwards and hit the back of her head. There is no LOC. Denies blood thinner or baby aspirin use. No preceding chest pain or shortness of breath. (Edin Bray) - Related Data Home Medications Medication Instructions Recorded Confirmed Atorvastatin Calcium [Lipitor] 80 mg PO DAILY 05/02/22 05/14/23 Cyanocobalamin (Vitamin B-12) 1,000 mcg PO DAILY 05/02/22 05/14/23 [Vitamin B-12] Mirabegron [Myrbetriq] 50 mg PO DAILY 05/02/22 05/14/23 [place]-3 Fatty Acids [[place]-3] 1,000 mg PO DAILY 05/02/22 05/14/23 Valsartan [Diovan] 160 mg PO DAILY 05/02/22 05/14/23 Cholecalciferol [Vitamin D3 (125 125 mcg PO DAILY 05/14/23 05/14/23 Mcg = 5000 Iu)] Nitroglycerin Sl Tabs [Nitrostat] 0.4 mg SL Q5M PRN 05/14/23 05/14/23 carvediloL [Coreg] 6.25 mg PO BID 05/14/23 05/14/23 Previous Rx's Medication Instructions Recorded Aspirin 81 mg PO BID 30 Days #60 tab 05/17/23 Docusate [Colace] 100 mg PO BID #60 capsule 05/17/23 HYDROcodone/APAP 5-325MG [[place] 1 tab PO Q6HR PRN #6 tab 05/19/23 5-325] Pantoprazole [Protonix] 40 mg PO AC-BRKFST tab 05/19/23 Allergies Allergy/AdvReac Type Severity Reaction Status Date / Time No Known Allergies Allergy Verified 05/13/23 23:17 Review of Systems ROS Other: All systems not noted in ROS Statement are negative. <Blanca Mcwilliams - Last Filed: 06/06/24 00:24> ROS Other: All systems not noted in ROS Statement are negative. <Edin Bray - Last Filed: 06/06/24 02:09> ROS Statement: Those systems with pertinent positive or pertinent negative responses have been documented in the HPI. Past Medical History Past Medical History: Coronary Artery Disease (CAD), CVA/TIA, Hyperlipidemia, Hypertension, Myocardial Infarction ([place]), Osteoarthritis (OA), Vascular Disorder Additional Past Medical History / Comment(s): borderline diabetic, UTI PAST SEPTICEMIA, HIATAL HERNIA Last Myocardial Infarction Date:: 1999 History of Any Multi-Drug Resistant Organisms: CRE, Other MDRO Date of last positivie culture/infection: 07/21/21 MDRO Source:: URINE Past Surgical History: Adenoidectomy, Cholecystectomy, Coronary Bypass/CABG, Heart Catheterization, Joint Replacement, Tonsillectomy, Tubal Ligation Additional Past Surgical History / Comment(s): TRIPLE VESSEL CABG, RT SHOULDER HEMIARTHROPLASTY, LT CAROTI ENDART,CANDY CATARACTS, EGD/COLONOSCOPY."INJ IN LT EYE" Past Anesthesia/Blood Transfusion Reactions: No Reported Reaction Past Psychological History: No Psychological Hx Reported Smoking Status: Former smoker, Never smoker Past Alcohol Use History: Occasional Past Drug Use History: None Reported - Past Family History Father Family Medical History: CVA/TIA, Hypertension, Neurologic Disorder Additional Family Medical History / Comment(s): STROKES RAN ON DAD'S SIDE OF FAMILY Mother Family Medical History: COPD Additional Family Medical History / Comment(s): EMPHYSEMA Sister(s) Family Medical History: Cancer Additional Family Medical History / Comment(s): "FEMALE CANCER" <Edin Bray - Last Filed: 06/06/24 02:09> General Exam General appearance: alert, in no apparent distress Head exam: Present: atraumatic, normocephalic, normal inspection Eye exam: Present: normal appearance, PERRL, EOMI. Absent: scleral icterus, conjunctival injection, periorbital swelling Pupils: Present: normal accommodation ENT exam: Present: normal exam, mucous membranes moist Neck exam: Present: normal inspection, other (C-collar present). Absent: tenderness, meningismus, lymphadenopathy Respiratory exam: Present: normal lung sounds bilaterally. Absent: respiratory distress, wheezes, rales, rhonchi, stridor Cardiovascular Exam: Present: regular rate, normal rhythm, normal heart sounds. Absent: systolic murmur, diastolic murmur, rubs, gallop, clicks GI/Abdominal exam: Present: soft, normal bowel sounds. Absent: distended, tenderness, guarding, rebound, rigid Extremities exam: Present: normal inspection, full ROM, normal capillary refill, pedal edema (1+ pitting edema bilaterally. Dorsalis pedis pulses present and equal bilaterally). Absent: tenderness, joint swelling, calf tenderness Back exam: Present: normal inspection Neurological exam: Present: alert, oriented X3, CN II-XII intact Psychiatric exam: Present: normal affect, normal mood Skin exam: Present: warm, dry, intact, normal color. Absent: rash <Blanca Mcwilliams - Last Filed: 06/06/24 00:24> <Edin Bray - Last Filed: 06/06/24 02:09> - General Exam Comments Initial Comments: Visual Physical Exam Vital signs reviewed General: Well-appearing, nontoxic, no acute distress. Head: Normocephalic, atraumatic Eyes: PERRLA, EOMI ENT: Airway patent Chest: Nonlabored breathing Skin: No visual rash, normal skin tone Neuro: Alert and oriented 3 Musculoskeletal: No gross abnormalities (Edin Bray) Course Vital Signs 06/05/24 06/06/24 06/06/24 21:06 00:10 01:38 Temperature 97.5 F L 98 F 98 F Pulse Rate 85 84 78 Respiratory 18 18 18 Rate Blood Pressure 191/84 205/84 197/83 O2 Sat by Pulse 97 98 99 Oximetry EKG Findings - EKG Results: EKG: interpreted by ERMD (EKG reveals normal sinus rhythm with no ST changes. Ventricular rate 72 bpm, IN interval 127, QRS duration 107, QT/QTc 390/414) <Blanca Mcwilliams - Last Filed: 06/06/24 00:24> Medical Decision Making - Lab Data Result diagrams: 06/05/24 23:32 - EKG Data -: EKG Interpreted by Me <Blanca Mcwilliams - Last Filed: 06/06/24 00:24> - Lab Data Result diagrams: 06/05/24 23:32 06/05/24 23:32 <Edin Bray - Last Filed: 06/06/24 02:09> - Medical Decision Making Was pt. sent in by a medical professional or institution (, PA, TIEING MACHINE OPERATOR, urgent care, hospital, or [facility]...) When possible be specific @ -No Did you speak to anyone other than the patient for history (EMS, parent, family, police, friend...)? What history was obtained from this source @ -No Did you review nursing and triage notes (agree or disagree)? Why? @ -I reviewed and agree with nursing and triage notes Were old charts reviewed (outside hosp., previous admission, EMS record, old EKG, old radiological studies, urgent care reports/EKG's, m[facility] records)? Report findings @ -No old charts were reviewed Differential Diagnosis (chest pain, altered mental status, abdominal pain women, abdominal pain men, vaginal bleeding, weakness, fever, dyspnea, syncope, headache, dizziness, GI bleed, back pain, seizure, CVA, palpatations, mental health, musculoskeletal)? @ -Differential Musculoskeletal Intracranial bleed, cervical fracture, CHF exacerbation, [place], rhabdomyolysis, UTI, muscular strain, contusion, ligament sprain, fracture, arthritis, septic arthritis, bursitis, cellulitis, muscle spasm, nerve compression, DVT, arterial occlusion, herpes zoster, electrolyte abnormality, tumor.... This is not meant to be in all inclusive list EKG interpreted by me (3pts min.). @ -As above X-rays interpreted by me (1pt min.). @ -Chest x-ray pending at time of signout. CT interpreted by me (1pt min.). @ -CT of head and neck pending at time of signout. U/S interpreted by me (1pt. min.). @ -None done What testing was considered but not performed or refused? (CT, X-rays, U/S, labs)? Why? @ -None What meds were considered but not given or refused? Why? @ -None Did you discuss the management of the patient with other professionals (professionals i.e. , PA, TIEING MACHINE OPERATOR, lab, RT, psych nurse, social media editor, block splitter operator, teacher, customer service security officer, case making machine operator)? Give summary @ -No Was smoking cessation discussed for >3mins.? @ -No Was critical care preformed (if so, how long)? @ -No Were there social determinants of health that impacted care today? How? ( Homelessness, low income, unemployed, alcoholism, drug addiction, transportation, low edu. Level, literacy, decrease access to med. care, halfway, rehab)? @ -No Was there de-escalation of care discussed even if they declined (Discuss DNR or withdrawal of care, Hospice)? DNR status @ -No What co-morbidities impacted this encounter? (DM, HTN, Smoking, COPD, CAD, Cancer, CVA, ARF, Chemo, Hep., AIDS, mental health diagnosis, sleep apnea, morbid obesity)? @ -None Was patient admitted / discharged? Hospital course, mention meds given and route, prescriptions, significant lab abnormalities, going to OR and other pertinent info. @ -Patient was seen and evaluated for fall earlier today. States her legs gave out beneath her and she fell back, hitting the back of her head. Denies loss of consciousness. She is endorsing some neck pain, vision changes, and bilateral leg swelling. Vital signs are unremarkable. Neuro examination is unremarkable. There is 1+ pitting edema in bilateral legs. No sign of bacterial infection. EKG reveals normal sinus rhythm with no ST changes. Case signed out to Jem Bray PA-C at 12:20pm pending CT of head and neck, chest x-ray, and lab work including CBC, CMP, BNP, troponin, CK, uric acid, and urine. (Blanca Mcwilliams) Quicknote portion performed. Signed Edin Bray PA-C EKG interpreted me showing a sinus rhythm with no acute ST or T wave changes at a rate of 70 bpm. IN 127, QRS 107, QT/QTc 390/414. Admission 83-year-old female signed out to me pending results however I saw the patient myself as a quick note out in triage. In short, 83-year-old female with a past medical history significant for CABG, stroke, presenting with a chief complaint of fall. Patient lives at home alone and normally ambulates with a walker. States that both her legs gave out underneath her causing her to fall backwards and hit the back of her head. No LOC. Laid on the ground for 3 hours before being able to be picked up by EMS. States that she has been unable to ambulate since then. Also noted swelling of her bilateral legs. On my examination DP/PT pulses intact and swelling of bilateral lower extremities equal. In addition, patient notes that she has been having a UTI however she states that her PCP stopped practicing and she has not been having any of her daily medications. Also notes she started taking her boyfriends extra antibiotics to help with her UTI symptoms which have not been improving. Laboratory studies reviewed. CBC shows an elevated white blood cell count 11.4 elevated neutrophils 9.3. Sodium 128, BUN 28, creatinine 1.2, calcium 10.8, creatinine kinase 670, troponin 0.038, BNP 5470. At this time patient has no complaints of chest pain or shortness of breath. UA does show evidence of infection with large leukocyte esterase, 86 white blood cells, few white blood cell clumps, and occasional bacteria. Patient will be admitted with consults to PT OT and cardiology. Troponin will be trended. (Edin Bray) - Lab Data Lab Results 06/05/24 06/05/24 06/05/24 Range/Units 23:32 23:32 23:32 WBC 11.4 H (3.8-10.6) k/uL RBC 3.45 L (3.80-5.40) m/uL Hgb 11.4 (11.4-16.0) gm/dL Hct 35.2 (34.0-46.0) % MCV 102.1 H (80.0-100.0) fL MCH 33.2 (25.0-35.0) pg MCHC 32.5 (31.0-37.0) g/dL RDW 14.4 (11.5-15.5) % Plt Count 234 (150-450) k/uL MPV 7.6 Neutrophils % 81 % Lymphocytes % 8 % Monocytes % 8 % Eosinophils % 0 % Basophils % 0 % Neutrophils # 9.3 H (1.3-7.7) k/uL Lymphocytes # 1.0 (1.0-4.8) k/uL Monocytes # 1.0 (0-1.0) k/uL Eosinophils # 0.0 (0-0.7) k/uL Basophils # 0.0 (0-0.2) k/uL Macrocytosis Slight Sodium 128 L (137-145) mmol/L Potassium 4.7 (3.5-5.1) mmol/L Chloride 97 L (98-107) mmol/L Carbon Dioxide 19 L (22-30) mmol/L Anion Gap 12 mmol/L BUN 28 H (7-17) mg/dL Creatinine 1.20 H (0.52-1.04) mg/dL Est GFR (CKD-EPI)AfAm 49 (>60 ml/min/1.73 sqM) Est GFR (CKD-EPI)NonAf 42 (>60 ml/min/1.73 sqM) Glucose 107 H (74-99) mg/dL Uric Acid 7.2 (3.7-7.4) mg/dL Calcium 10.8 H (8.4-10.2) mg/dL Magnesium (1.6-2.3) mg/dL Total Bilirubin 0.8 (0.2-1.3) mg/dL AST 70 H (14-36) U/L ALT 37 H (4-34) U/L Alkaline Phosphatase 117 (38-126) U/L Creatine Kinase 670 H (30-135) U/L Troponin I (0.000-0.034) ng/mL NT-Pro-B Natriuret Pep 5470 pg/mL Total Protein 7.1 (6.3-8.2) g/dL Albumin 4.2 (3.5-5.0) g/dL Urine Color Colorless Urine Appearance Cloudy H (Clear) Urine pH 5.5 (5.0-8.0) Ur Specific [place] 1.007 (1.001-1.035) Urine Protein Trace H (Negative) Urine Glucose (UA) Negative (Negative) Urine Ketones Negative (Negative) Urine Blood Small H (Negative) Urine Nitrite Negative (Negative) Urine Bilirubin Negative (Negative) Urine Urobilinogen <2.0 (<2.0) mg/dL Ur Leukocyte Esterase Large H (Negative) Urine RBC 3 (0-5) /hpf Urine WBC 86 H (0-5) /hpf Urine WBC Clumps Few H (None) /hpf Ur Squamous Epith Cells 5 H (0-4) /hpf Urine Bacteria Occasional H (None) /hpf Urine Mucus Rare H (None) /hpf 06/05/24 06/05/24 Range/Units 23:32 23:32 WBC (3.8-10.6) k/uL RBC (3.80-5.40) m/uL Hgb (11.4-16.0) gm/dL Hct (34.0-46.0) % MCV (80.0-100.0) fL MCH (25.0-35.0) pg MCHC (31.0-37.0) g/dL RDW (11.5-15.5) % Plt Count (150-450) k/uL MPV Neutrophils % % Lymphocytes % % Monocytes % % Eosinophils % % Basophils % % Neutrophils # (1.3-7.7) k/uL Lymphocytes # (1.0-4.8) k/uL Monocytes # (0-1.0) k/uL Eosinophils # (0-0.7) k/uL Basophils # (0-0.2) k/uL Macrocytosis Sodium (137-145) mmol/L Potassium (3.5-5.1) mmol/L Chloride (98-107) mmol/L Carbon Dioxide (22-30) mmol/L Anion Gap mmol/L BUN (7-17) mg/dL Creatinine (0.52-1.04) mg/dL Est GFR (CKD-EPI)AfAm (>60 ml/min/1.73 sqM) Est GFR (CKD-EPI)NonAf (>60 ml/min/1.73 sqM) Glucose (74-99) mg/dL Uric Acid (3.7-7.4) mg/dL Calcium (8.4-10.2) mg/dL Magnesium 1.6 (1.6-2.3) mg/dL Total Bilirubin (0.2-1.3) mg/dL AST (14-36) U/L ALT (4-34) U/L Alkaline Phosphatase (38-126) U/L Creatine Kinase (30-135) U/L Troponin I 0.038 H* (0.000-0.034) ng/mL NT-Pro-B Natriuret Pep pg/mL Total Protein (6.3-8.2) g/dL Albumin (3.5-5.0) g/dL Urine Color Urine Appearance (Clear) Urine pH (5.0-8.0) Ur Specific [place] (1.001-1.035) Urine Protein (Negative) Urine Glucose (UA) (Negative) Urine Ketones (Negative) Urine Blood (Negative) Urine Nitrite (Negative) Urine Bilirubin (Negative) Urine Urobilinogen (<2.0) mg/dL Ur Leukocyte Esterase (Negative) Urine RBC (0-5) /hpf Urine WBC (0-5) /hpf Urine WBC Clumps (None) /hpf Ur Squamous Epith Cells (0-4) /hpf Urine Bacteria (None) /hpf Urine Mucus (None) /hpf - EKG Data EKG Comments: EKG reveals normal sinus rhythm with no ST changes. Ventricular rate 72 bpm, IN interval 127, QRS duration 107, QT/QTc 390/414. (Blanca Mcwilliams) Disposition <Blanca Mcwilliams - Last Filed: 06/06/24 00:24> Time of Disposition: 01:00 <Edin Bray - Last Filed: 06/06/24 02:09> Clinical Impression: HTN (hypertension), Elevated troponin, CHF (congestive heart failure) Disposition: ADMITTED IP TO THIS [facility] Condition: Fair Referrals: None,Stated [Primary Care Provider] - 1-2 days
[2024-06-05 23:41] LABS: Basophils % (A) 0 %; Eosinophils % (A) 0 %; HCT 35.2 % (34.0-46.0); HGB 11.4 gm/dL (11.4-16.0); Lymphocytes % (A) 8 %; MCH 33.2 pg (25.0-35.0); MCHC 32.5 g/dL (31.0-37.0); MCV 102.1 fL (80.0-100.0); Macrocytosis Slight; Mean Platelet Volume 7.6; Monocytes % (A) 8 %; Neutrophils # (A) 9.3 k/uL (1.3-7.7); Neutrophils % (A) 81 %; Platelet Count 234 k/uL (150-450); RBC 3.45 m/uL (3.80-5.40); RDW 14.4 % (11.5-15.5); WBC 11.4 k/uL (3.8-10.6)
[2024-06-06 00:19] LABS: Appearance,Urine Cloudy (Clear); Bacteria,Urine Occasional /hpf; Bilirubin,Urine Negative (Negative); Blood,Urine Small (Negative); Color,Urine Colorless; Glucose,Urine (UA) Negative (Negative); Ketones,Urine Negative (Negative); Leukocyte Esterase,Urine Large (Negative); Mucus,Urine Rare /hpf; Nitrite,Urine Negative (Negative); PH, Urine 5.5 (5.0-8.0); Protein,Urine Trace (Negative); RBC,Urine 3 /hpf (0-5); Specific Gravity,Urine 1.007 (1.001-1.035); Squamous Epithelial Cell,Urine 5 /hpf (0-4); Urobilinogen,Urine <2.0 mg/dL (<2.0); WBC,Urine 86 /hpf (0-5)
--- NOTE | 2024-06-06 00:45 | CT ---
EXAM: CT Head Without Intravenous Contrast CLINICAL HISTORY: ITS.REASON CT Reason: s/p fall TECHNIQUE: Axial computed tomography images of the head/brain without intravenous contrast. CTDI is 45.2 mGy and DLP is 1028 mGy-cm. This CT exam was performed using one or more of the following dose reduction techniques: automated exposure control, adjustment of the mA and/or kV according to patient size, and/or use of iterative reconstruction technique. COMPARISON: No relevant prior studies available. FINDINGS: Brain: Encephalomalacia in the RIGHT frontal lobe, consistent with old infarct. Age-related cerebral volume loss. Periventricular and subcortical white matter hypoattenuation, consistent with chronic microangiopathy. No acute intracranial hemorrhage. No midline shift or mass effect. Ventricles: Unremarkable. No ventriculomegaly. Bones/joints: Unremarkable. No acute fracture. Soft tissues: Unremarkable. Sinuses: Unremarkable as visualized. No acute sinusitis. Mastoid air cells: Unremarkable as visualized. No mastoid effusion. IMPRESSION: No acute intracranial hemorrhage. No midline shift or mass effect. Encephalomalacia in the RIGHT frontal lobe, consistent with old infarct. EXAM: CT Cervical Spine Without Intravenous Contrast CLINICAL HISTORY: ITS.REASON CT Reason: s/p fall TECHNIQUE: Axial computed tomography images of the cervical spine without intravenous contrast. CTDI is 11.2 mGy and DLP is 286.7 mGy-cm. This CT exam was performed using one or more of the following dose reduction techniques: automated exposure control, adjustment of the mA and/or kV according to patient size, and/or use of iterative reconstruction technique. COMPARISON: No relevant prior studies available. FINDINGS: The vertebral body heights are maintained. The craniocervical junction is intact. The atlanto-dens interval is maintained. The dens is intact. There is no spondylolisthesis. Multilevel cervical spondylosis and degenerative disc disease. Straightening of the cervical lordosis. The unenhanced neck soft tissues are grossly unremarkable. The visualized lung apices are grossly clear. IMPRESSION: No acute fracture or subluxation of the cervical spine.
[2024-06-06 00:55] LABS: ALT 37 U/L (4-34); AST 70 U/L (14-36); African American GFR (CKD) 49 (>60 ml/min/1.73 sqM); Albumin 4.2 g/dL (3.5-5.0); Alkaline Phosphatase 117 U/L (38-126); Anion Gap 12 mmol/L; Blood Urea Nitrogen 28 mg/dL (7-17); Calcium 10.8 mg/dL (8.4-10.2); Carbon Dioxide 19 mmol/L (22-30); Chloride 97 mmol/L (98-107); Creatine Kinase 670 U/L (30-135); Glucose 107 mg/dL (74-99); Non-African American GFR(CKD) 42 (>60 ml/min/1.73 sqM); Potassium 4.7 mmol/L (3.5-5.1); Sodium 128 mmol/L (137-145); Total Bilirubin 0.8 mg/dL (0.2-1.3); Total Protein 7.1 g/dL (6.3-8.2); Uric Acid 7.2 mg/dL (3.7-7.4)
[2024-06-06 01:00] LABS: NT-Pro-B-Type Natriuretic Pept 5470 pg/mL
[2024-06-06] MEDS: ACETAMINOPHEN TAB 500 MG TAB PO STA (01:02)
[2024-06-06] MEDS ORDERED: NALOXONE 0.4 MG/ML 1 ML VIAL IV PRN (02:09)
[2024-06-06] MEDS: FUROSEMIDE 10 MG/ML 4 ML VIAL IV SCH (02:38)
[2024-06-06] MEDS: cefTRIAXone IN SWFI 1,000 MG/10 ML SYRINGE IVP STA (02:38)
[2024-06-06] MEDS: HYDROmorphone 0.5 MG/0.5 ML SYRINGE IVP PRN (04:03)
--- NOTE | 2024-06-06 04:17 | XR ---
EXAM: XR Right Tibia and Fibula, 2 Views CLINICAL HISTORY: ITS.REASON XR Reason: pain TECHNIQUE: Frontal and lateral views of the right tibia and fibula. COMPARISON: No relevant prior studies available. FINDINGS: Bones/joints: Diffuse osseous demineralization. No acute fracture or subluxation. Soft tissues: Unremarkable. No radiopaque foreign body. Vasculature: Vascular calcifications. IMPRESSION: No acute fracture or subluxation.
--- NOTE | 2024-06-06 04:22 | XR ---
EXAM: XR Right Ankle Complete, 3 or More Views CLINICAL HISTORY: ITS.REASON XR Reason: r/o acute finding TECHNIQUE: Frontal, lateral and oblique views of the right ankle. COMPARISON: No relevant prior studies available. FINDINGS: Bones/joints: Osseous demineralization. No fracture or dislocation. Soft tissues: Generalized soft tissue swelling. Vascular clips along the medial aspect of the calf. IMPRESSION: No fracture or dislocation.
[2024-06-06] MEDS: PANTOPRAZOLE 40 MG TABLET PO SCH (07:38)
[2024-06-06] MEDS: carvediloL 6.25 MG TAB PO SCH (07:49)
[2024-06-06] MEDS: HYDROcodone/APAP 5-325MG 1 EACH TAB PO PRN (07:50)
[2024-06-06] MEDS: NON FORMULARY DRUG (Mirabegron [Myrbetriq] 50 MG Tab.Er.24h) PO SCH (08:01)
[2024-06-06] MEDS: ATORVASTATIN 80 MG TAB PO SCH (08:01)
[2024-06-06] MEDS: VALSARTAN 160 MG TAB PO SCH (08:01)
--- NOTE | 2024-06-06 08:08 | XR ---
EXAMINATION TYPE: XR chest 2V DATE OF EXAM: 06/05/2024 10:34 PM CLINICAL INDICATION:Female, 83 years old with history of weakness; COMPARISON: Chest radiographs from 05/13/2023 TECHNIQUE: XR chest 2V Frontal view of the chest. FINDINGS: Lungs/Pleura: There is no evidence of pleural effusion, focal consolidation, or pneumothorax. Pulmonary vascularity: Unremarkable. Heart/mediastinum: Cardiomediastinal silhouette is unremarkable. Musculoskeletal: No acute osseous pathology. Right shoulder arthroplasty appears intact. Other findings: None IMPRESSION: No acute cardiopulmonary disease/process.
[2024-06-06] MEDS: CYANOCOBALAMIN 500 MCG TAB PO SCH (08:54)
[2024-06-06] MEDS: amLODIPine 10 MG TAB PO SCH (08:54)
[2024-06-06] MEDS: ASPIRIN 81 MG PO SCH (08:54)
[2024-06-06] MEDS: CHOLECALCIFEROL 125 MCG (5000 IU) TABLET PO SCH (08:54)
[2024-06-06] MEDS ORDERED: ASPIRIN 81 MG PO SCH (09:00)
--- NOTE | 2024-06-06 10:22 | P.CRDCN ---
History of Present Illness History of present illness: HISTORY OF PRESENT ILLNESS: This is a 83-year-old female with a past medical history significant for CVA, coronary artery disease with previous CABG, carotid stenosis with left carotid endarterectomy, valvular heart disease, hypertension, and hyperlipidemia. Patient follows in the office with Dr. Fernandes has not been seen in the office in July 2022. We have been asked to see the patient in consultation for elevated troponin. Patient examined at the bedside in the emergency room. The patient presented to the hospital after sustaining a fall at home. She states that she was attempting to walk to the bathroom when she fell and hit her head. She states that she crawled from the shotweld operator to the couch and was yelling for help until somebody heard her and called 911. The patient denies having any chest pain or pressure. She denies having any shortness of breath. She denies losing consciousness. Patient's blood pressures have been elevated with a systolic greater than 190. The patient apparently has not been taking any of her blood pressure medications at home. DIAGNOSTICS: - EKG reveals sinus mechanism with no signs of acute ischemia. - Chest xray negative for acute process. - Laboratory data: WBC 11.4. Hemoglobin 11.4. Platelet count 234. Sodium 128. Potassium 4.7. BUN 28. Creatinine 1.20. Troponin 0.038. 0.058. 0.064. proBNP 5470. - Current home cardiac medications include none - Most recent echocardiogram obtained in February 2021 revealing normal EF, mild TR, mild to moderate AR, mild to moderate MR - Cardiac catheterization history: 2017 with stenting of the SVG to circumflex REVIEW OF SYSTEMS: At the time of my exam: CONSTITUTIONAL: Denies fever or chills. HEENT: Denies blurred vision, vision changes, or eye pain. Denies hemoptysis CARDIOVASCULAR: Denies chest pain. Denies orthopnea. Denies PND. Denies palpitations RESPIRATORY: Denies shortness of breath. GASTROINTESTINAL: Denies abdominal pain. Denies nausea or vomiting. HEMATOLOGIC: Denies bleeding disorders. GENITOURINARY: Denies any blood in urine. SKIN: Denies pruitis. Denies rash. PHYSICAL EXAM: VITAL SIGNS: Reviewed. GENERAL: Well-developed in no acute distress. HEENT: Head is normocephalic. Pupils are equal, round. Sclerae anicteric. Mucous membranes of the mouth are moist. Neck supple. No JVD or thyromegaly LUNGS: Respirations even and unlabored. Lungs essentially clear to auscultation bilaterally. HEART: Regular rate and rhythm. S1 and S2 heard. Systolic murmur noted. ABDOMEN: Soft. Nondistended. Nontender. EXTREMITIES: Normal range of motion. No clubbing or cyanosis. Peripheral pulses intact. No lower extremity edema NEUROLOGIC: Awake and alert. Oriented x 3. ASSESSMENT: S/p mechanical fall without syncope Hypertensive urgency Abnormal troponins, flat, acute myocardial injury without ischemia, likely secondary to uncontrolled hypertension Congestive heart failure, ruled out, patient euvolemic upon examination History of coronary artery disease with previous CABG COHEN to LAD and VG to circumflex in 1999 and subsequent stenting of SVG to circumflex, 2017 Carotid stenosis with previous left carotid endarterectomy Valvular heart disease Hypertension Hyperlipidemia History of CVA History of medication noncompliance PLAN: Obtain 2D echo to assess cardiac structure and function Resume home cardiac medications Add amlodipine 10 mg daily Decrease aspirin to 81 mg daily Continue to monitor blood pressures Patient is euvolemic upon examination with no signs of congestive heart failure. Discontinue IV Lasix. Further recommendations pending patient course Nurse practitioner note has been reviewed by physician. Signing provider agrees with the documented findings, assessment, and plan of care documented by LENS GRINDER APPRENTICE as a scribe. Past Medical History Past Medical History: Coronary Artery Disease (CAD), CVA/TIA, Hyperlipidemia, Hypertension, Myocardial Infarction ([place]), Osteoarthritis (OA), Vascular Disorder Additional Past Medical History / Comment(s): borderline diabetic, UTI PAST SEPTICEMIA, HIATAL HERNIA Last Myocardial Infarction Date:: 1999 History of Any Multi-Drug Resistant Organisms: CRE, Other MDRO Date of last positivie culture/infection: 07/21/21 MDRO Source:: URINE Past Surgical History: Adenoidectomy, Cholecystectomy, Coronary Bypass/CABG, Heart Catheterization, Joint Replacement, Tonsillectomy, Tubal Ligation Additional Past Surgical History / Comment(s): TRIPLE VESSEL CABG, RT SHOULDER HEMIARTHROPLASTY, LT CAROTI ENDART,CANDY CATARACTS, EGD/COLONOSCOPY."INJ IN LT EYE" Past Anesthesia/Blood Transfusion Reactions: No Reported Reaction Past Psychological History: No Psychological Hx Reported Smoking Status: Former smoker, Never smoker Past Alcohol Use History: Occasional Past Drug Use History: None Reported - Past Family History Father Family Medical History: CVA/TIA, Hypertension, Neurologic Disorder Additional Family Medical History / Comment(s): STROKES RAN ON DAD'S SIDE OF FAMILY Mother Family Medical History: COPD Additional Family Medical History / Comment(s): EMPHYSEMA Sister(s) Family Medical History: Cancer Additional Family Medical History / Comment(s): "FEMALE CANCER" Medications and Allergies Home Medications Medication Instructions Recorded Confirmed Type Ascorbic Acid [Vitamin C] 1,000 mg PO DAILY 06/06/24 06/06/24 History Calcium Carbonate/Vitamin D3 1 tab PO DAILY 06/06/24 06/06/24 History [Calcium 600-Vit D3 10 mcg (400 Iu)] Turmeric Root Extract [Turmeric 500 mg PO DAILY 06/06/24 06/06/24 History Curcumin] Allergies Allergy/AdvReac Type Severity Reaction Status Date / Time No Known Allergies Allergy Verified 05/13/23 23:17 Physical Exam Vitals: Vital Signs Temp Pulse Resp BP Pulse Ox 06/06/24 07:36 64 18 197/104 96 06/06/24 05:49 98 F 59 L 16 164/68 96 06/06/24 04:41 69 16 162/67 96 06/06/24 03:00 77 16 209/88 96 06/06/24 02:20 64 18 95 06/06/24 01:38 98 F 78 18 197/83 99 06/06/24 00:10 98 F 84 18 205/84 98 06/05/24 21:06 97.5 F L 85 18 191/84 97 Intake and Output 06/05/24 06/06/24 06/06/24 22:59 06:59 14:59 Other: Weight 63.503 kg Results 06/05/24 23:32 06/05/24 23:32 Cardiac Enzymes 06/05/24 06/05/24 06/06/24 Range/Units 23:32 23:32 02:55 AST 70 H (14-36) U/L Troponin I 0.038 H* 0.058 H* (0.000-0.034) ng/mL 06/06/24 Range/Units 07:27 AST (14-36) U/L Troponin I 0.064 H* (0.000-0.034) ng/mL CBC 06/05/24 Range/Units 23:32 WBC 11.4 H (3.8-10.6) k/uL RBC 3.45 L (3.80-5.40) m/uL Hgb 11.4 (11.4-16.0) gm/dL Hct 35.2 (34.0-46.0) % Plt Count 234 (150-450) k/uL Comprehensive Metabolic Panel 06/05/24 Range/Units 23:32 Sodium 128 L (137-145) mmol/L Potassium 4.7 (3.5-5.1) mmol/L Chloride 97 L (98-107) mmol/L Carbon Dioxide 19 L (22-30) mmol/L BUN 28 H (7-17) mg/dL Creatinine 1.20 H (0.52-1.04) mg/dL Glucose 107 H (74-99) mg/dL Calcium 10.8 H (8.4-10.2) mg/dL AST 70 H (14-36) U/L ALT 37 H (4-34) U/L Alkaline Phosphatase 117 (38-126) U/L Total Protein 7.1 (6.3-8.2) g/dL Albumin 4.2 (3.5-5.0) g/dL Current Medications Generic Name Dose Route Start Last Admin Trade Name Freq PRN Reason Stop Dose Admin Hydrocodone Bitart/Acetaminophen 1 each 06/06/24 04:58 06/06/24 07:50 Hydrocodone/Apap 5-325mg 1 Each Tab PO 1 each Q6HR PRN Administration Pain Aspirin 81 mg 06/06/24 09:00 Aspirin 81 Mg PO BID [facility] Atorvastatin Calcium 80 mg 06/06/24 09:00 06/06/24 08:01 Atorvastatin 80 Mg Tab PO Not Given DAILY [facility] Carvedilol 6.25 mg 06/06/24 07:30 06/06/24 07:49 Carvedilol 6.25 Mg Tab PO 6.25 mg BID-W/MEALS [facility] Administration Cholecalciferol 125 mcg 06/06/24 09:00 Cholecalciferol 125 Mcg (5000 Iu) Tablet PO DAILY [facility] Cyanocobalamin 1,000 mcg 06/06/24 09:00 Cyanocobalamin 500 Mcg Tab PO DAILY [facility] Furosemide 40 mg 06/06/24 02:45 06/06/24 02:38 Furosemide 10 Mg/Ml 4 Ml Vial IV 40 mg Q12HR MARK Administration Hydromorphone HCl 0.5 mg 06/06/24 02:31 06/06/24 04:03 Hydromorphone 0.5 Mg/0.5 Ml Syringe IVP 0.5 mg Q3HR PRN Administration Moderate Pain (Scale 4 to 6) Naloxone HCl 0.2 mg 06/06/24 02:09 Naloxone 0.4 Mg/Ml 1 Ml Vial IV Q2M PRN Opioid Reversal Non-Formulary Medication 50 mg 06/06/24 09:00 06/06/24 08:01 Mirabegron [Myrbetriq] PO Not Given DAILY MARK Pantoprazole Sodium 40 mg 06/06/24 07:30 06/06/24 07:38 Pantoprazole 40 Mg Tablet PO Not Given AC-BRKFST MARK Valsartan 160 mg 06/06/24 09:00 06/06/24 08:01 Valsartan 160 Mg Tab PO Not Given DAILY MARK Intake and Output 06/05/24 06/06/24 06/06/24 22:59 06:59 14:59 Other: Weight 63.503 kg 06/05/24 23:32 06/05/24 23:32
[2024-06-06] MEDS: ONDANSETRON 4 MG/2 ML VIAL IVP PRN (17:27)
--- NOTE | 2024-06-07 10:27 | P.PN ---
Subjective HISTORY OF PRESENT ILLNESS: This is a 83-year-old female with a past medical history significant for CVA, coronary artery disease with previous CABG, carotid stenosis with left carotid endarterectomy, valvular heart disease, hypertension, and hyperlipidemia. Patient follows in the office with Dr. Fernandes has not been seen in the office in July 2022. We have been asked to see the patient in consultation for elevated troponin. Patient examined at the bedside in the emergency room. The patient presented to the hospital after sustaining a fall at home. She states that she was attempting to walk to the bathroom when she fell and hit her head. She states that she crawled from the fireproof door maker to the couch and was yelling for help until somebody heard her and called 911. The patient denies having any chest pain or pressure. She denies having any shortness of breath. She denies losing consciousness. Patient's blood pressures have been elevated with a systolic greater than 190. The patient apparently has not been taking any of h er blood pressure medications at home. DIAGNOSTICS: - EKG reveals sinus mechanism with no signs of acute ischemia. - Chest xray negative for acute process. - Laboratory data: WBC 11.4. Hemoglobin 11.4. Platelet count 234. Sodium 128. Potassium 4.7. BUN 28. Creatinine 1.20. Troponin 0.038. 0.058. 0.064. proBNP 5470. - Current home cardiac medications include none - Most recent echocardiogram obtained in February 2021 revealing normal EF, mild TR, mild to moderate AR, mild to moderate MR - Cardiac catheterization history: 2017 with stenting of the SVG to circumflex 06/07/2024 Patient examined this morning at bedside. Patient currently denies chest pain or pressure. She denies shortness of breath. She states she is feeling much better today. Patient's blood pressure is significantly improved with a systolic between [id number]. 2D echo remains pending. PHYSICAL EXAM: VITAL SIGNS: Reviewed. GENERAL: Well-developed in no acute distress. HEENT: Head is normocephalic. Pupils are equal, round. Sclerae anicteric. Mucous membranes of the mouth are moist. Neck supple. No JVD or thyromegaly LUNGS: Respirations even and unlabored. Lungs essentially clear to auscultation bilaterally. HEART: Regular rate and rhythm. S1 and S2 heard. Systolic murmur noted. ABDOMEN: Soft. Nondistended. Nontender. EXTREMITIES: Normal range of motion. No clubbing or cyanosis. Peripheral pulses intact. No lower extremity edema NEUROLOGIC: Awake and alert. Oriented x 3. ASSESSMENT: S/p mechanical fall without syncope Hypertensive urgency Abnormal troponins, flat, acute myocardial injury without ischemia, likely secondary to uncontrolled hypertension Congestive heart failure, ruled out, patient euvolemic upon examination History of coronary artery disease with previous CABG COHEN to LAD and VG to circumflex in 1999 and subsequent stenting of SVG to circumflex, 2017 Carotid stenosis with previous left carotid endarterectomy Valvular heart disease Hypertension Hyperlipidemia History of CVA History of medication noncompliance PLAN: 2D echo has been ordered. Await results. Continue current cardiac medications Continue to monitor blood pressure Patient is currently stable from a cardiac perspective Further recommendations pending patient course Nurse practitioner note has been reviewed by physician. Signing provider agrees with the documented findings, assessment, and plan of care documented by SOLDER TECHNICIAN as a scribe. Objective - Vital Signs Vital signs: Vital Signs Temp 97.2 F L 06/07/24 08:03 Pulse 60 06/07/24 08:03 Resp 15 06/07/24 10:12 BP 136/77 06/07/24 10:12 Pulse Ox 96 06/07/24 08:03 FiO2 Intake & Output 06/06/24 06/07/24 06/07/24 18:59 06:59 18:59 Output Total 1000 700 Balance -1000 -700 Output: Urine 1000 700 Female - External 1000 - Labs CBC & Chem 7: 06/05/24 23:32 06/05/24 23:32
[2024-06-07] MEDS: SODIUM CHLORIDE 0.9% 1,000 ML IV SCH (12:08)
--- NOTE | 2024-06-07 12:33 | P.HPIM ---
History of Present Illness H&P Date: 06/06/24 81-year-old [place] female came in after a fall which is a mechanical fall does not appear the patient had a syncopal episode although there was a concern when she was admitted and syncope workup.. Patient does have history of coronary artery disease CABG in the past carotid stenosis with carotid left carotid endarterectomy. Patient stopped taking her medications few months ago as she got sick of taking all his medications and patient is partially dependent on ADLs. Patient is slightly dehydrated with hypokalemia and hyponatremia with elevated creatinine of 1.2 and hyponatremia with serum sodium of around 128. Patient has minimally elevated troponins because of which cardiology evaluate the patient and believes that this elevated troponins are secondary to renal dysfunction. Patient denies any chest pressure. Chest x-ray did not show any significant abnormality. Patient does not have any history of congestive heart failure had a normal EF and 2020. Musculoskeletal imaging did not show any fractures REVIEW OF SYSTEMS: CONSTITUTIONAL: No fever, no malaise, no fatigue. HEENT: No recent visual problems or hearing problems. Denied any sore throat. CARDIOVASCULAR: No chest pain, orthopnea, PND, no palpitations, no syncope. PULMONARY: No shortness of breath, no cough, no hemoptysis. GASTROINTESTINAL: No diarrhea, no nausea, no vomiting, no abdominal pain. NEUROLOGICAL: No headaches, no weakness, no numbness. HEMATOLOGICAL: Denies any bleeding or petechiae. GENITOURINARY: Denies any burning micturition, frequency, or urgency. MUSCULOSKELETAL/RHEUMATOLOGICAL: Denies any joint pain, swelling, or any muscle pain. ENDOCRINE: Denies any polyuria or polydipsia. The rest of the 14-point review of systems is negative. PHYSICAL EXAMINATION: GENERAL: The patient is alert and oriented x3, not in any acute distress. Well developed, well nourished. HEENT: Pupils are round and equally reacting to light. EOMI. No scleral icterus. No conjunctival pallor. Normocephalic, atraumatic. No pharyngeal erythema. No thyromegaly. CARDIOVASCULAR: S1 and S2 present. No murmurs, rubs, or gallops. PULMONARY: Chest is clear to auscultation, no wheezing or crackles. ABDOMEN: Soft, nontender, nondistended, normoactive bowel sounds. No palpable organomegaly. MUSCULOSKELETAL: No joint swelling or deformity. EXTREMITIES: No cyanosis, clubbing, or pedal edema. NEUROLOGICAL: Gross neurological examination did not reveal any focal deficits. SKIN: No rashes. Assessment and plan -Fall: Secondary to musculoskeletal weakness from aging process. Patient will need physical therapy Occupational Therapy evaluation possibility of discharge to subacute rehabilitation possibly of syncope is low although echocardiogram is being obtained at this time and patient will be monitored overnight -Acute renal failure prerenal azotemia from dehydration IV fluids at 75 cc/h -Hypovolemic hyponatremia: IV fluids -Coronary artery disease patient has not been taking her medications patient will be started on aspirin, beta-jose. -Accelerated hypertension hypertensive urgency with highly elevated blood pressure due to noncompliance with medications patient will be started on valsartan and amlodipine and is also being started on beta-jose -History of CVA in the past -Hyperlipidemia -Generalized deconditioning dependent on ADLs partially, will require subacute r ehabilitation DVT prophylaxis: Lovenox Past Medical History Past Medical History: Coronary Artery Disease (CAD), CVA/TIA, Hyperlipidemia, Hypertension, Myocardial Infarction ([place]), Osteoarthritis (OA), Vascular Disorder Additional Past Medical History / Comment(s): borderline diabetic, UTI PAST SEPTICEMIA, HIATAL HERNIA Last Myocardial Infarction Date:: 1999 History of Any Multi-Drug Resistant Organisms: CRE, Other MDRO Date of last positivie culture/infection: 07/21/21 MDRO Source:: URINE Past Surgical History: Adenoidectomy, Cholecystectomy, Coronary Bypass/CABG, Heart Catheterization, Joint Replacement, Tonsillectomy, Tubal Ligation Additional Past Surgical History / Comment(s): TRIPLE VESSEL CABG, RT SHOULDER HEMIARTHROPLASTY, LT CAROTI ENDART,CANDY CATARACTS, EGD/COLONOSCOPY."INJ IN LT EYE" Past Anesthesia/Blood Transfusion Reactions: No Reported Reaction Past Psychological History: No Psychological Hx Reported Smoking Status: Former smoker, Never smoker Past Alcohol Use History: Occasional Past Drug Use History: None Reported - Past Family History Father Family Medical History: CVA/TIA, Hypertension, Neurologic Disorder Additional Family Medical History / Comment(s): STROKES RAN ON DAD'S SIDE OF FAMILY Mother Family Medical History: COPD Additional Family Medical History / Comment(s): EMPHYSEMA Sister(s) Family Medical History: Cancer Additional Family Medical History / Comment(s): "FEMALE CANCER" Medications and Allergies Home Medications Medication Instructions Recorded Confirmed Type Ascorbic Acid [Vitamin C] 1,000 mg PO DAILY 06/06/24 06/06/24 History Calcium Carbonate/Vitamin D3 1 tab PO DAILY 06/06/24 06/06/24 History [Calcium 600-Vit D3 10 mcg (400 Iu)] Turmeric Root Extract [Turmeric 500 mg PO DAILY 06/06/24 06/06/24 History Curcumin] Allergies Allergy/AdvReac Type Severity Reaction Status Date / Time No Known Allergies Allergy Verified 05/13/23 23:17 Physical Exam Vitals: Vital Signs Temp Pulse Resp BP Pulse Ox 06/07/24 10:12 15 136/77 06/07/24 08:03 97.2 F L 60 15 154/107 96 06/07/24 06:34 58 L 16 148/62 06/07/24 05:04 97.8 F 59 L 16 164/69 96 06/07/24 01:00 57 L 16 144/71 95 06/06/24 19:36 67 14 132/64 97 Intake and Output 06/06/24 06/07/24 06/07/24 22:59 06:59 14:59 Intake Total 473 Output Total 550 150 Balance -550 -150 473 Intake: Oral 473 Output: Urine 550 150 Results CBC & Chem 7: 06/05/24 23:32 06/05/24 23:32
--- NOTE | 2024-06-07 12:36 | P.PN ---
Subjective June 07, 2023 Patient is clinically doing well, PT and OT evaluated the patient, patient will need placement in subacute rehabilitation. 81-year-old pleasant female came in after a fall which is a mechanical fall does not appear the patient had a syncopal episode although there was a concern when she was admitted and syncope workup.. Patient does have history of coronary artery disease CABG in the past carotid stenosis with carotid left carotid endarterectomy. Patient stopped taking her medications few months ago as she got sick of taking all his medications and patient is partially dependent on ADLs. Patient is slightly dehydrated with hypokalemia and hyponatremia with elevated creatinine of 1.2 and hyponatremia with serum sodium of around 128. Patient has minimally elevated troponins because of which cardiology evaluate the patient and believes that this elevated troponins are secondary to renal dysfunction. Patient denies any chest pressure. Chest x-ray did not show any significant abnormality. Patient does not have any history of congestive heart failure had a normal EF and 2020. Musculoskeletal imaging did not show any fractures REVIEW OF SYSTEMS: CONSTITUTIONAL: No fever, no malaise, no fatigue. HEENT: No recent visual problems or hearing problems. Denied any sore throat. CARDIOVASCULAR: No chest pain, orthopnea, PND, no palpitations, no syncope. PULMONARY: No shortness of breath, no cough, no hemoptysis. GASTROINTESTINAL: No diarrhea, no nausea, no vomiting, no abdominal pain. NEUROLOGICAL: No headaches, no weakness, no numbness. HEMATOLOGICAL: Denies any bleeding or petechiae. GENITOURINARY: Denies any burning micturition, frequency, or urgency. MUSCULOSKELETAL/RHEUMATOLOGICAL: Denies any joint pain, swelling, or any muscle pain. ENDOCRINE: Denies any polyuria or polydipsia. The rest of the 14-point review of systems is negative. PHYSICAL EXAMINATION: GENERAL: The patient is alert and oriented x3, not in any acute distress. Well developed, well nourished. HEENT: Pupils are round and equally reacting to light. EOMI. No scleral icterus. No conjunctival pallor. Normocephalic, atraumatic. No pharyngeal erythema. No thyromegaly. CARDIOVASCULAR: S1 and S2 present. No murmurs, rubs, or gallops. PULMONARY: Chest is clear to auscultation, no wheezing or crackles. ABDOMEN: Soft, nontender, nondistended, normoactive bowel sounds. No palpable organomegaly. MUSCULOSKELETAL: No joint swelling or deformity. EXTREMITIES: No cyanosis, clubbing, or pedal edema. NEUROLOGICAL: Gross neurological examination did not reveal any focal deficits. SKIN: No rashes. Assessment and plan -Fall: Secondary to musculoskeletal weakness from aging process. Patient will need physical therapy Occupational Therapy evaluation possibility of discharge to subacute rehabilitation possibly of syncope is low although echocardiogram is being obtained at this time and patient will be monitored overnight -Urinary tract infection present is presently on Rocephin which will be continued awaiting urine cultures urine cultures may not be positive as patient is partially treated as an outpatient with antibiotics -Acute renal failure prerenal azotemia from dehydration IV fluids at 75 cc/h -Hypovolemic hyponatremia: IV fluids -Coronary artery disease patient has not been taking her medications patient will be started on aspirin, beta-jose. -Accelerated hypertension hypertensive urgency with highly elevated blood pressure due to noncompliance with medications patient will be started on vals syd and amlodipine and is also being started on beta-jose -History of CVA in the past -Hyperlipidemia -Generalized deconditioning dependent on ADLs partially, will require subacute rehabilitation DVT prophylaxis: Lovenox Objective - Vital Signs Vital signs: Vital Signs Temp 97.2 F L 06/07/24 08:03 Pulse 60 06/07/24 08:03 Resp 15 06/07/24 10:12 BP 136/77 06/07/24 10:12 Pulse Ox 96 06/07/24 08:03 FiO2 Intake & Output 06/06/24 06/07/24 06/07/24 18:59 06:59 18:59 Intake Total 473 Output Total 1000 700 Balance -1000 -700 473 Intake: Oral 473 Output: Urine 1000 700 Female - External 1000 - Labs CBC & Chem 7: 06/05/24 23:32 06/05/24 23:32
[2024-06-07 12:53] LABS: Basophils # (A) 0.1 k/uL (0-0.2); Basophils % (A) 0 %; Eosinophils # (A) 0.4 k/uL (0-0.7); Eosinophils % (A) 3 %; HCT 36.9 % (34.0-46.0); HGB 11.1 gm/dL (11.4-16.0); Lymphocytes # (A) 1.6 k/uL (1.0-4.8); Lymphocytes % (A) 13 %; MCH 30.8 pg (25.0-35.0); MCV 102.9 fL (80.0-100.0); Macrocytosis Slight; Mean Platelet Volume 7.8; Monocytes % (A) 8 %; Neutrophils # (A) 9.2 k/uL (1.3-7.7); Neutrophils % (A) 74 %; Platelet Count 269 k/uL (150-450); RBC 3.59 m/uL (3.80-5.40); RDW 14.4 % (11.5-15.5); WBC 12.5 k/uL (3.8-10.6)
[2024-06-07 13:05] LABS: African American GFR (CKD) 39 (>60 ml/min/1.73 sqM); Anion Gap 7 mmol/L; Blood Urea Nitrogen 33 mg/dL (7-17); Calcium 10.5 mg/dL (8.4-10.2); Carbon Dioxide 28 mmol/L (22-30); Chloride 95 mmol/L (98-107); Glucose 145 mg/dL (74-99); Non-African American GFR(CKD) 34 (>60 ml/min/1.73 sqM); Potassium 4.2 mmol/L (3.5-5.1); Sodium 130 mmol/L (137-145)
[2024-06-07] MEDS: HEPARIN SODIUM,PORCINE 5,000 UNIT/ML 1 ML VIAL SQ SCH (13:18)
[2024-06-07] MEDS: QUEtiapine 25 MG TAB PO PRN (20:51)
--- NOTE | 2024-06-08 10:34 | P.PN ---
Subjective HISTORY OF PRESENT ILLNESS: This is a 83-year-old female with a past medical history significant for CVA, coronary artery disease with previous CABG, carotid stenosis with left carotid endarterectomy, valvular heart disease, hypertension, and hyperlipidemia. Patient follows in the office with Dr. Fernandes has not been seen in the office in July 2022. We have been asked to see the patient in consultation for elevated troponin. Patient examined at the bedside in the emergency room. The patient presented to the hospital after sustaining a fall at home. She states that she was attempting to walk to the bathroom when she fell and hit her head. She states that she crawled from the exotic dancer to the couch and was yelling for help until somebody heard her and called 911. The patient denies having any chest pain or pressure. She denies having any shortness of breath. She denies losing consciousness. Patient's blood pressures have been elevated with a systolic greater than 190. The patient apparently has not been taking any of h er blood pressure medications at home. DIAGNOSTICS: - EKG reveals sinus mechanism with no signs of acute ischemia. - Chest xray negative for acute process. - Laboratory data: WBC 11.4. Hemoglobin 11.4. Platelet count 234. Sodium 128. Potassium 4.7. BUN 28. Creatinine 1.20. Troponin 0.038. 0.058. 0.064. proBNP 5470. - Current home cardiac medications include none - Most recent echocardiogram obtained in February 2021 revealing normal EF, mild TR, mild to moderate AR, mild to moderate MR - Cardiac catheterization history: 2017 with stenting of the SVG to circumflex 06/07/2024 Patient examined this morning at bedside. Patient currently denies chest pain or pressure. She denies shortness of breath. She states she is feeling much better today. Patient's blood pressure is significantly improved with a systolic between [id number]. 2D echo remains pending. 06/08 patient seen and examined. Patient denies any chest pain or pressure. Blood pressures have been marginal in the 90s up to 130s. still having significant right foot pain. echocardiogram shows left ventricular ejection fraction 60-65% without significant valvular disease. PHYSICAL EXAM: VITAL SIGNS: Reviewed. GENERAL: Well-developed in no acute distress. HEENT: Head is normocephalic. Pupils are equal, round. Sclerae anicteric. Mucous membranes of the mouth are moist. Neck supple. No JVD or thyromegaly LUNGS: Respirations even and unlabored. Lungs essentially clear to auscultation bilaterally. HEART: Regular rate and rhythm. S1 and S2 heard. Systolic murmur noted. ABDOMEN: Soft. Nondistended. Nontender. EXTREMITIES: Normal range of motion. No clubbing or cyanosis. Peripheral pulses intact. No lower extremity edema NEUROLOGIC: Awake and alert. Oriented x 3. ASSESSMENT: S/p mechanical fall without syncope Hypertensive urgency Abnormal troponins, flat, acute myocardial injury without ischemia, likely secondary to uncontrolled hypertension Congestive heart failure, ruled out, patient euvolemic upon examination History of coronary artery disease with previous CABG COHEN to LAD and VG to circumflex in 1999 and subsequent stenting of SVG to circumflex, 2017 Carotid stenosis with previous left carotid endarterectomy Valvular heart disease Hypertension Hyperlipidemia History of CVA History of medication noncompliance PLAN: Echo shows preserved EF. No significant angina-type symptoms. Continue current regimen. Appears stable for discharge home from a cardiology standpoint. Objective - Vital Signs Vital signs: Vital Signs Temp 97.8 F 06/08/24 07:00 Pulse 58 L 06/08/24 07:00 Resp 18 06/08/24 07:00 BP 135/61 06/08/24 07:00 Pulse Ox 96 06/08/24 07:00 FiO2 Intake & Output 06/07/24 06/08/24 06/08/24 18:59 06:59 18:59 Intake Total 473 118 Output Total 103 Balance 473 -103 118 Weight 63.503 kg Intake: Oral 473 118 Output: Urine 103 Other: Voiding Method External Catheter External Catheter # Voids 2 1 - Labs CBC & Chem 7: 06/07/24 12:16 06/07/24 12:16 Labs: Abnormal Lab Results - Last 24 Hours (Table) 06/07/24 06/07/24 Range/Units 12:16 12:16 WBC 12.5 H (3.8-10.6) k/uL RBC 3.59 L (3.80-5.40) m/uL Hgb 11.1 L (11.4-16.0) gm/dL MCV 102.9 H (80.0-100.0) fL MCHC 30.0 L (31.0-37.0) g/dL Neutrophils # 9.2 H (1.3-7.7) k/uL Sodium 130 L (137-145) mmol/L Chloride 95 L (98-107) mmol/L BUN 33 H (7-17) mg/dL Creatinine 1.45 H (0.52-1.04) mg/dL Glucose 145 H (74-99) mg/dL Calcium 10.5 H (8.4-10.2) mg/dL Microbiology - Last 24 Hours (Table) 06/05/24 Unknown Urine Culture - Preliminary Urine,Clean Catch Gram Neg Bacilli
--- NOTE | 2024-06-08 12:26 | CA ---
Transthoracic Echo Report Name: Ban Reynoso Age: 83 Gender: F : 1940 Exam Date: 06/08/2024 09:04 Exam Location: [facility] Ht (in): 63 Wt (lb): 140 Ordering Physician: Edin Bray Attending/Referring Phys: Biology Manager Melissa Leung RDCS Procedure CPT: Indications: Heart failure Cardiac Hx: Technical Quality: Technically difficult study Contrast 1: Definity Total Dose (mL): 2 Contrast 2: Total Dose (mL): MEASUREMENTS (Male / Female) Normal Values 2D ECHO LV Diastolic Volume MOD BP 93.8 cm??? 67 - 155 / 56 - 104 cm??? LV Systolic Volume MOD BP 32.1 cm??? 22 - 58 / 19 - 49 cm??? LV Ejection Fraction MOD BP 65.8 % >= 55 % LV Cardiac Index MOD BP 2079.4 cm???/min???m??? LV Diastolic Volume MOD 4C 91.8 cm??? LV Systolic Volume MOD 4C 32.4 cm??? LV Ejection Fraction MOD 4C 64.7 % LV Cardiac Index MOD 4C 2002.4 cm???/min???m??? LV Diastolic Length 4C 7.8 cm LV Systolic Length 4C 5.9 cm LV Diastolic Volume MOD 2C 93.9 cm??? LV Systolic Volume MOD 2C 31.0 cm??? LV Ejection Fraction MOD 2C 67.0 % LV Cardiac Index MOD 2C 2120.6 cm???/min???m??? LV Diastolic Length 2C 7.6 cm LV Systolic Length 2C 6.2 cm LA Volume 37.6 cm??? 18 - 58 / 22 - 52 cm??? LA Volume Index 22.2 cm???/m??? 16 - 28 cm???/m??? DOPPLER AV Peak Velocity 160.1 cm/s AV Peak Gradient 10.2 mmHg AV Mean Velocity 107.3 cm/s AV Mean Gradient 5.3 mmHg AV Velocity Time Integral 30.4 cm LVOT Peak Velocity 93.4 cm/s LVOT Peak Gradient 3.5 mmHg LVOT Velocity Time Integral 20.3 cm MV Area PHT 3.0 cm??? Mitral E Point Velocity 74.5 cm/s Mitral A Point Velocity 96.1 cm/s Mitral E to A Ratio 0.8 MV Deceleration Time 256.9 ms FINDINGS Left Ventricle Left ventricular ejection fraction is estimated at 60-65 %. Left ventricular cavity size normal. No obvious regional wall motion abnormalities. Right Ventricle Normal right ventricular function. Unable to estimate the right ventricular systolic pressure. Right Atrium Normal right atrial size. Left Atrium Normal left atrial size. Mitral Valve Mitral valve thickened. No evidence for mitral valve prolapse. No mitral stenosis. Trace mitral regurgitation. Aortic Valve Aortic valve not well visualized. No aortic stenosis. Mild aortic regurgitation. Tricuspid Valve Structurally normal tricuspid valve. No tricuspid stenosis. No tricuspid regurgitation. Pulmonic Valve Pulmonic valve not well visualized. Pericardium No pericardial effusion. Aorta Aortic root and proximal ascending aorta not well visualized CONCLUSIONS Left ventricular EF 50-60-65% Mildly dilated right ventricle with moderate right ventricular hypertrophy Trace mitral regurgitation Mild aortic regurgitation No pericardial effusion Previewed by: Dr. Neel Lima DO (Electronically Signed) Final Date: 08 June 2024 12:25
[2024-06-08 14:06] VITALS: BMI 24.7
--- NOTE | 2024-06-08 15:03 | P.PN ---
Subjective June 08, 2024 Urine cultures are positive for gram-negative bacilli final sensitivities and identification of the organism is still pending. Physical therapy recommended subacute rehabilitation awaiting insurance authorization hyponatremia improved p atient will be continued on IV fluids. June 07, 2023 Patient is clinically doing well, PT and OT evaluated the patient, patient will need placement in subacute rehabilitation. 81-year-old pleasant female came in after a fall which is a mechanical fall does not appear the patient had a syncopal episode although there was a concern when she was admitted and syncope workup.. Patient does have history of coronary artery disease CABG in the past carotid stenosis with carotid left carotid endarterectomy. Patient stopped taking her medications few months ago as she got sick of taking all his medications and patient is partially dependent on ADLs. Patient is slightly dehydrated with hypokalemia and hyponatremia with elevated creatinine of 1.2 and hyponatremia with serum sodium of around 128. Patient has minimally elevated troponins because of which cardiology evaluate the patient and believes that this elevated troponins are secondary to renal dysfunction. Patient denies any chest pressure. Chest x-ray did not show any significant abnormality. Patient does not have any history of congestive heart failure had a normal EF and 2020. Musculoskeletal imaging did not show any fractures REVIEW OF SYSTEMS: CONSTITUTIONAL: No fever, no malaise, no fatigue. HEENT: No recent visual problems or hearing problems. Denied any sore throat. CARDIOVASCULAR: No chest pain, orthopnea, PND, no palpitations, no syncope. PULMONARY: No shortness of breath, no cough, no hemoptysis. GASTROINTESTINAL: No diarrhea, no nausea, no vomiting, no abdominal pain. NEUROLOGICAL: No headaches, no weakness, no numbness. HEMATOLOGICAL: Denies any bleeding or petechiae. GENITOURINARY: Denies any burning micturition, frequency, or urgency. MUSCULOSKELETAL/RHEUMATOLOGICAL: Denies any joint pain, swelling, or any muscle pain. ENDOCRINE: Denies any polyuria or polydipsia. The rest of the 14-point review of systems is negative. PHYSICAL EXAMINATION: GENERAL: The patient is alert and oriented x3, not in any acute distress. Well developed, well nourished. HEENT: Pupils are round and equally reacting to light. EOMI. No scleral icterus. No conjunctival pallor. Normocephalic, atraumatic. No pharyngeal erythema. No thyromegaly. CARDIOVASCULAR: S1 and S2 present. No murmurs, rubs, or gallops. PULMONARY: Chest is clear to auscultation, no wheezing or crackles. ABDOMEN: Soft, nontender, nondistended, normoactive bowel sounds. No palpable organomegaly. MUSCULOSKELETAL: No joint swelling or deformity. EXTREMITIES: No cyanosis, clubbing, or pedal edema. NEUROLOGICAL: Gross neurological examination did not reveal any focal deficits. SKIN: No rashes. Assessment and plan -Fall: Secondary to musculoskeletal weakness from aging process. PT and OT evaluated the patient and patient will require subacute rehab -Urinary tract infection present is presently on Rocephin which will be continued, urine cultures showing gram-negative bacilli -Acute renal failure prerenal azotemia from dehydration IV fluids at 75 cc/h, patient may have chronic kidney disease stage III -Hypovolemic hyponatremia: IV fluids improved -Coronary artery disease patient has not been taking her medications patient will be started on aspirin, beta-jose. -Accelerated hypertension hypertensive urgency with highly elevated blood pressure due to noncompliance with medications patient will be started on valsartan and amlodipine and is also being started on beta-jose -History of CVA in the past -Hyperlipidemia -Generalized deconditioning dependent on ADLs partially, will require subacute rehabilitation DVT prophylaxis: Lovenox Objective - Vital Signs Vital signs: Vital Signs Temp 97.8 F 06/08/24 07:00 Pulse 58 L 06/08/24 07:00 Resp 18 06/08/24 07:00 BP 135/61 06/08/24 07:00 Pulse Ox 96 06/08/24 07:00 FiO2 Intake & Output 06/07/24 06/08/24 06/08/24 18:59 06:59 18:59 Intake Total 473 118 Output Total 103 Balance 473 -103 118 Weight 63.503 kg 63.503 kg Intake: Oral 473 118 Output: Urine 103 Other: Voiding Method External Catheter External Catheter External Catheter # Voids 2 1 - Labs CBC & Chem 7: 06/07/24 12:16 06/07/24 12:16 Labs: Microbiology - Last 24 Hours (Table) 06/05/24 Unknown Urine Culture - Preliminary Urine,Clean Catch Gram Neg Bacilli
--- NOTE | 2024-06-09 11:32 | P.PN ---
Subjective HISTORY OF PRESENT ILLNESS: This is a 83-year-old female with a past medical history significant for CVA, coronary artery disease with previous CABG, carotid stenosis with left carotid endarterectomy, valvular heart disease, hypertension, and hyperlipidemia. Patient follows in the office with Dr. Fernandes has not been seen in the office in July 2022. We have been asked to see the patient in consultation for elevated troponin. Patient examined at the bedside in the emergency room. The patient presented to the hospital after sustaining a fall at home. She states that she was attempting to walk to the bathroom when she fell and hit her head. She states that she crawled from the geek squad manager to the couch and was yelling for help until somebody heard her and called 911. The patient denies having any chest pain or pressure. She denies having any shortness of breath. She denies losing consciousness. Patient's blood pressures have been elevated with a systolic greater than 190. The patient apparently has not been taking any of h er blood pressure medications at home. DIAGNOSTICS: - EKG reveals sinus mechanism with no signs of acute ischemia. - Chest xray negative for acute process. - Laboratory data: WBC 11.4. Hemoglobin 11.4. Platelet count 234. Sodium 128. Potassium 4.7. BUN 28. Creatinine 1.20. Troponin 0.038. 0.058. 0.064. proBNP 5470. - Current home cardiac medications include none - Most recent echocardiogram obtained in February 2021 revealing normal EF, mild TR, mild to moderate AR, mild to moderate MR - Cardiac catheterization history: 2016 with stenting of the SVG to circumflex 06/07/2024 Patient examined this morning at bedside. Patient currently denies chest pain or pressure. She denies shortness of breath. She states she is feeling much better today. Patient's blood pressure is significantly improved with a systolic between [id number]. 2D echo remains pending. 06/08 patient seen and examined. Patient denies any chest pain or pressure. Blood pressures have been marginal in the 90s up to 130s. still having significant right foot pain. echocardiogram shows left ventricular ejection fraction 60-65% without significant valvular disease. 06/09 patient seen and examined. Blood pressures lower and marginal in the 90s and currently complaining of significant lightheadedness when she stands up. Therefore we'll decrease her amlodipine from 10-5. Denies any chest pain and otherwise feels better. PHYSICAL EXAM: VITAL SIGNS: Reviewed. GENERAL: Well-developed in no acute distress. HEENT: Head is normocephalic. Pupils are equal, round. Sclerae anicteric. Mucous membranes of the mouth are moist. Neck supple. No JVD or thyromegaly LUNGS: Respirations even and unlabored. Lungs essentially clear to auscultation bilaterally. HEART: Regular rate and rhythm. S1 and S2 heard. Systolic murmur noted. ABDOMEN: Soft. Nondistended. Nontender. EXTREMITIES: Normal range of motion. No clubbing or cyanosis. Peripheral pulses intact. No lower extremity edema NEUROLOGIC: Awake and alert. Oriented x 3. ASSESSMENT: S/p mechanical fall without syncope Hypertensive urgency Abnormal troponins, flat, acute myocardial injury without ischemia, likely secondary to uncontrolled hypertension Congestive heart failure, ruled out, patient euvolemic upon examination History of coronary artery disease with previous CABG COHEN to LAD and VG to circumflex in 1999 and subsequent stenting of SVG to circumflex, 2017 Carotid stenosis with previous left carotid endarterectomy Valvular heart disease Hypertension Hyperlipidemia History of CVA History of medication noncompliance PLAN: Echo shows preserved EF. No significant angina-type symptoms. Continue current regimen. decrease Norvasc from 10-5 given significant lightheadedness and borderline blood pressure Appears stable for discharge home from a cardiology standpoint. Objective - Vital Signs Vital signs: Vital Signs Temp 97.8 F 06/09/24 07:00 Pulse 60 06/09/24 07:00 Resp 16 06/09/24 07:00 BP 129/67 06/09/24 07:00 Pulse Ox 96 06/09/24 07:00 FiO2 Intake & Output 06/08/24 06/09/24 06/09/24 18:59 06:59 18:59 Intake Total 354 236 Output Total 100 Balance 354 -100 236 Weight 63.503 kg Intake: Oral 354 236 Output: Urine 100 Other: Voiding Method External Catheter External Catheter External Catheter # Voids 2 - Labs CBC & Chem 7: 06/07/24 12:16 06/07/24 12:16 Labs: Microbiology - Last 24 Hours (Table) 06/05/24 Unknown Urine Culture - Preliminary Urine,Clean Catch Gram Neg Bacilli
[2024-06-09 12:09] LABS: Anion Gap 5 mmol/L; Blood Urea Nitrogen 45 mg/dL (7-17); Carbon Dioxide 25 mmol/L (22-30); Chloride 105 mmol/L (98-107); Glucose 191 mg/dL (74-99); Potassium 4.4 mmol/L (3.5-5.1); Sodium 135 mmol/L (137-145)
[2024-06-09 12:10] LABS: African American GFR (CKD) 32 (>60 ml/min/1.73 sqM); Calcium 9.3 mg/dL (8.4-10.2); Non-African American GFR(CKD) 28 (>60 ml/min/1.73 sqM)
[2024-06-09 14:36] VITALS: BP 102/61; PULSE 53; RESP 18; TEMP 97.6
--- NOTE | 2024-06-09 15:09 | P.DS ---
Providers Date of admission: 06/06/24 01:43 Attending physician: Jimbo Schroeder MD Consults: 06/06/24 02:14 Consult Physician Urgent Consulting Provider: [facility] Consult Reason/Comments: elevated trop, CHF Do you want consulting provider notified?: Yes Primary care physician: Stated None Hospital Course: Final Diagnosis -Fall: Secondary to musculoskeletal weakness from aging process. PT and OT evaluated the patient and patient will require subacute rehab -Ankle pain secondary to fall likely patient has a right ankle sprain -Urinary tract infection present is presently on Rocephin which will be continued, urine cultures showing gram-negative bacilli -Acute renal failure prerenal azotemia from dehydration IV fluids at 75 cc/h, patient may have chronic kidney disease stage III -Hypovolemic hyponatremia: IV fluids improved -Coronary artery disease patient has not been taking her medications patient will be started on aspirin, beta-jose. -Accelerated hypertension hypertensive urgency with highly elevated blood pressure due to noncompliance with medications patient will be started on valsartan and amlodipine and is also being started on beta-jose -History of CVA in the past -Hyperlipidemia -Generalized deconditioning dependent on ADLs partially, will require subacute rehabilitation Discharge Disposition Patient is stable for discharge to subacute rehab. For patient to see orthopedics in the office of her right ankle pain has not improved with rest ice elevation and compression with Felipe bandage. Patient has been resumed on her blood pressure medications and doses were decreased prior to discharge secondary to low blood pressures. Patient will continue on a course of oral Ceftin for the next 7 days for any urinary tract infection additionally patient will be discharged on 2 days of Pyridium for the dysuria. Will recommend to repeat a BMP and CBC in 2 to 3 days. Patient will need close follow-up with cardiology also with Dr. Fernandes in the office. Additionally patient will be followed with a primary attending at the rehab facility she usually sees Lili Damon in the office. Hospital Course 81-year-old pleasant female came in after a fall which is a mechanical fall does not appear the patient had a syncopal episode although there was a concern when she was admitted for syncope workup.. Patient does have history of coronary artery disease CABG in the past carotid stenosis with carotid left carotid endarterectomy. Patient stopped taking her medications few months ago as she got sick of taking all his medications and patient is partially dependent on ADLs. Patient is slightly dehydrated with hypokalemia and hyponatremia with elevated creatinine of 1.2 and hyponatremia with serum sodium of around 128. Patient has minimally elevated troponins because of which cardiology evaluate the patient and believes that this elevated troponins are secondary to renal dysfunction. Patient denies any chest pressure. Chest x-ray did not show any significant abnormality. Patient does not have any history of congestive heart failure had a normal EF and 2020. Musculoskeletal imaging did not show any fractures. Was admitted and evaluated by cardiology and was resumed on her blood pressure medication. Patient then became hypotensive dropping into the 90s to low 100s systolic secondary to be room resumed on high doses of blood pressure medication. Also concern for acute urinary tract infection with urine culture showing gram-negative bacilli and patient does have an elevated white blood cell count of 12.5. Patient was having dysuria and urinary symptoms and has been receiving IV ceftriaxone while in the hospital and will be discharged on a course of oral Ceftin for the next 7 days. Additionally patient be given 2 days of Pyridium to help with the dysuria. Had an echocardiogram done showing ejection fraction of 50 to 60 to 65% with trace mitral regurgitation mild aortic regurgitation and mildly dilated right ventricle with moderate right ventricular hypertrophy. Patient does complain of right ankle pain with x-rays being negative for acute fracture she possibly have sprained her ankle during the fall. We will recommend to Felipe wrap her ankle and continue to ice it if pain does not improve within a couple days we would recommend for patient to see orthopedics in the office for this. Does not have any chest pain or shortness of breath no nausea vomiting or diarrhea she is in today up in the chair and tolerating diet. Sodium levels improved up to 135, BUN of 45 and a creatinine of 1.68 this is likely due to the hypovolemia and low blood pressures. Expected to improve with decrease in her blood pressure medication. Patient will be cleared for discharge to subacute rehab. Please see medication reconciliation for a list of current medications. Thank you for allowing us to participate in the care of this patient. The impression and plan of care has been dictated by Tiffanie Garcia Nurse Practitioner as directed. Dr. Shanell MD I have performed a history and physical examination and medical decision making of this patient, discussed the same with the dictator, and agree with the dictators assessment and plan as written, documented as a scribe. Based on total visit time, I have performed more than 50% of this visit. Patient Condition at Discharge: Fair Plan - Discharge Summary Discharge Rx Participant: No New Discharge Prescriptions: New Aspirin 81 mg PO DAILY tab Mirabegron [Myrbetriq] 50 mg PO DAILY HYDROcodone/APAP 5-325MG [[place] 5-325] 1 each PO Q6HR PRN #4 tab PRN Reason: Pain Pantoprazole [Protonix] 40 mg PO AC-BRKFST tab Valsartan 40 mg PO DAILY #30 tab Atorvastatin [Lipitor] 80 mg PO DAILY tab amLODIPine [Norvasc] 5 mg PO DAILY tab QUEtiapine [SEROquel] 12.5 mg PO HS PRN tab PRN Reason: Agitation Cyanocobalamin [Vitamin B-12] 1,000 mcg PO DAILY tab Cholecalciferol [Vitamin D3 (125 Mcg = 5000 Iu)] 125 mcg PO DAILY tab carvediloL [Coreg] 3.125 mg PO BID #60 tablet cefUROXime axetiL [Ceftin] 500 mg PO BID 7 Days #14 tab Phenazopyridine HCl [Pyridium] 100 mg PO TID 2 Days #6 tab Continue Turmeric Root Extract [Turmeric Curcumin] 500 mg PO DAILY Ascorbic Acid [Vitamin C] 1,000 mg PO DAILY Calcium Carbonate/Vitamin D3 [Calcium 600-Vit D3 10 mcg (400 Iu)] 1 tab PO DAILY Discharge Medication List Ascorbic Acid [Vitamin C] 1,000 mg PO DAILY 06/06/24 [History] Calcium Carbonate/Vitamin D3 [Calcium 600-Vit D3 10 mcg (400 Iu)] 1 tab PO DAILY 06/06/24 [History] Turmeric Root Extract [Turmeric Curcumin] 500 mg PO DAILY 06/06/24 [History] Aspirin 81 mg PO DAILY tab 06/09/24 [Rx] Atorvastatin [Lipitor] 80 mg PO DAILY tab 06/09/24 [Rx] Cholecalciferol [Vitamin D3 (125 Mcg = 5000 Iu)] 125 mcg PO DAILY tab 06/09/24 [Rx] Cyanocobalamin [Vitamin B-12] 1,000 mcg PO DAILY tab 06/09/24 [Rx] HYDROcodone/APAP 5-325MG [[place] 5-325] 1 each PO Q6HR PRN #4 tab 06/09/24 [Rx] Mirabegron [Myrbetriq] 50 mg PO DAILY 06/09/24 [Rx] Pantoprazole [Protonix] 40 mg PO AC-BRKFST tab 06/09/24 [Rx] Phenazopyridine HCl [Pyridium] 100 mg PO TID 2 Days #6 tab 06/09/24 [Rx] QUEtiapine [SEROquel] 12.5 mg PO HS PRN tab 06/09/24 [Rx] Valsartan 40 mg PO DAILY #30 tab 06/09/24 [Rx] amLODIPine [Norvasc] 5 mg PO DAILY tab 06/09/24 [Rx] carvediloL [Coreg] 3.125 mg PO BID #60 tablet 06/09/24 [Rx] cefUROXime axetiL [Ceftin] 500 mg PO BID 7 Days #14 tab 06/09/24 [Rx] Follow up Appointment(s)/Referral(s): Flavio Fernandes MD [STAFF PHYSICIAN] - 1 Week Sima Damon PAC [REFERRING] - 1-2 Days Shoaib Horton MD [STAFF PHYSICIAN] - 1-2 Days (To see at [facility] ) Ambulatory/Diagnostic Orders: Basic Metabolic Panel [LAB.AMB] Time Frame: 3 Days, Location: None Selected Discharge Disposition: TRANSFER TO SNF/ECF
[2024-06-10] MEDS ORDERED: amLODIPine 5 MG TAB PO SCH (09:00)
== END 2024-06-09 17:13 | DRG 556 ==
LOC: EC 21:04 → SUPCPDRO 21:04 → OBSVTOIN 06-06 01:43 → 3SCARD 06-06 01:43 → 6NMEDSUR 06-07 14:08
PROVIDERS: ADMIT Internal Medicine; ATTEND Internal Medicine
DX: M62.81 Muscle weakness (generalized) (principal); E87.1 Hypo-osmolality and hyponatremia; I5A Non-ischemic myocardial injury (non-traumatic); N39.0 Urinary tract infection, site not specified; I13.0 Hypertensive heart and chronic kidney disease with heart failure and stage 1 through stage 4 chronic kidney disease, or unspecified chronic kidney disease; I50.9 Heart failure, unspecified; I08.3 Combined rheumatic disorders of mitral, aortic and tricuspid valves; E78.5 Hyperlipidemia, unspecified; E86.0 Dehydration; E86.1 Hypovolemia; E87.6 Hypokalemia; I16.0 Hypertensive urgency; I25.10 Atherosclerotic heart disease of native coronary artery without angina pectoris; I25.2 Old myocardial infarction; Z79.82 Long term (current) use of aspirin; W18.30XA Fall on same level, unspecified, initial encounter; Y92.009 Unspecified place in unspecified non-institutional (private) residence as the place of occurrence of the external cause; Z82.49 Family history of ischemic heart disease and other diseases of the circulatory system; Z86.73 Personal history of transient ischemic attack (TIA), and cerebral infarction without residual deficits; Z87.891 Personal history of nicotine dependence; Z91.128 Patient's intentional underdosing of medication regimen for other reason; Z91.148 Patient's other noncompliance with medication regimen for other reason; Z95.1 Presence of aortocoronary bypass graft; Z95.5 Presence of coronary angioplasty implant and graft; B96.89 Other specified bacterial agents as the cause of diseases classified elsewhere; N18.30 Chronic kidney disease, stage 3 unspecified; Z86.79 Personal history of other diseases of the circulatory system; Z90.49 Acquired absence of other specified parts of digestive tract; Z98.42 Cataract extraction status, left eye; Z98.41 Cataract extraction status, right eye; Z98.51 Tubal ligation status
CPT/HCPCS: 36415; 70450; 71046; 72125; 80048; 80053; 81001; 82550; 83735; 83880; 84484; 84550; 85025; 87077; 87086; 87186; 93005; 93306; 96361; 96372; 96374; 96375; 99285

== ENCOUNTER 2025-06-08 13:32 | Emergency (ER) | payer MEDICARE, OTHER ==
--- NOTE | 2025-06-08 14:18 | ED ---
Fall HPI - General Chief Complaint: Fall Stated Complaint: Fall Time Seen by Provider: 06/08/25 13:34 Source: patient, EMS, RN notes reviewed Mode of arrival: EMS Limitations: no limitations - History of Present Illness Initial Comments: This is an 84-year-old female who presents to the emergency department for a fall. Patient was getting off the toilet when she started to feel dizzy, causing her to fall. Denies hitting her head, any LOC, or blood thinner use. States that all of her pain is to the right shoulder and left knee. Because of how she fell, she was positioned on the ground in a way where she was unable to get up. Believes that she was in that position for around an hour. States that she feels like she has a UTI that has been ongoing for the last 3 weeks. She has been unable to get in with her provider to have it managed. Believes that the dizziness was caused by the UTI. MD Complaint: fall - Related Data Home Medications Medication Instructions Recorded Confirmed Ascorbic Acid [Vitamin C] 1,000 mg PO DAILY 06/06/24 06/06/24 Calcium Carbonate/Vitamin D3 1 tab PO DAILY 06/06/24 06/06/24 [Calcium 600-Vit D3 10 mcg (400 Iu)] Turmeric Root Extract [Turmeric 500 mg PO DAILY 06/06/24 06/06/24 Curcumin] Previous Rx's Medication Instructions Recorded Aspirin 81 mg PO DAILY tab 06/09/24 Atorvastatin [Lipitor] 80 mg PO DAILY tab 06/09/24 Cholecalciferol [Vitamin D3 (125 125 mcg PO DAILY tab 06/09/24 Mcg = 5000 Iu)] Cyanocobalamin [Vitamin B-12] 1,000 mcg PO DAILY tab 06/09/24 HYDROcodone/APAP 5-325MG [[place] 1 each PO Q6HR PRN #4 tab 06/09/24 5-325] Mirabegron [Myrbetriq] 50 mg PO DAILY 06/09/24 Pantoprazole [Protonix] 40 mg PO AC-BRKFST tab 06/09/24 Phenazopyridine HCl [Pyridium] 100 mg PO TID 2 Days #6 tab 06/09/24 QUEtiapine [SEROquel] 12.5 mg PO HS PRN tab 06/09/24 Valsartan 40 mg PO DAILY #30 tab 06/09/24 amLODIPine [Norvasc] 5 mg PO DAILY tab 06/09/24 carvediloL [Coreg] 3.125 mg PO BID #60 tablet 06/09/24 cefuroxime axetiL [Ceftin] 500 mg PO BID 7 Days #14 tab 06/09/24 cefuroxime axetiL [Ceftin] 500 mg PO BID 10 Days #20 tab 06/08/25 Allergies Allergy/AdvReac Type Severity Reaction Status Date / Time No Known Allergies Allergy Verified 06/08/25 13:43 Review of Systems ROS Statement: Those systems with pertinent positive or pertinent negative responses have been documented in the HPI. ROS Other: All systems not noted in ROS Statement are negative. Past Medical History Past Medical History: Coronary Artery Disease (CAD), CVA/TIA, Hyperlipidemia, Hypertension, Myocardial Infarction (CA), Osteoarthritis (OA), Vascular Disorder Additional Past Medical History / Comment(s): borderline diabetic, UTI PAST SEPTICEMIA, HIATAL HERNIA Last Myocardial Infarction Date:: 1999 History of Any Multi-Drug Resistant Organisms: CRE, Other MDRO Date of last positivie culture/infection: 07/21/21 MDRO Source:: URINE Past Surgical History: Adenoidectomy, Cholecystectomy, Coronary Bypass/CABG, Heart Catheterization, Joint Replacement, Tonsillectomy, Tubal Ligation Additional Past Surgical History / Comment(s): TRIPLE VESSEL CABG, RT SHOULDER HEMIARTHROPLASTY, LT CAROTI ENDART,CANDY CATARACTS, EGD/COLONOSCOPY."INJ IN LT EYE" Past Anesthesia/Blood Transfusion Reactions: No Reported Reaction Past Psychological History: No Psychological Hx Reported Smoking Status: Former smoker, Never smoker Past Alcohol Use History: Occasional Past Drug Use History: None Reported - Past Family History Father Family Medical History: CVA/TIA, Hypertension, Neurologic Disorder Additional Family Medical History / Comment(s): STROKES RAN ON DAD'S SIDE OF FAMILY Mother Family Medical History: COPD Additional Family Medical History / Comment(s): EMPHYSEMA Sister(s) Family Medical History: Cancer Additional Family Medical History / Comment(s): "FEMALE CANCER" General Exam Limitations: no limitations General appearance: alert, in no apparent distress Head exam: Present: atraumatic, normocephalic, normal inspection Respiratory exam: Present: normal lung sounds bilaterally. Absent: respiratory distress, wheezes, rales, rhonchi, stridor Cardiovascular Exam: Present: regular rate, normal rhythm Neurological exam: Present: alert, oriented X3, CN II-XII intact Psychiatric exam: Present: normal affect, normal mood Skin exam: Present: warm, dry, intact, normal color. Absent: rash Course Vital Signs 06/08/25 06/08/25 13:34 14:44 Temperature 97.6 F Pulse Rate 72 67 Respiratory 18 18 Rate Blood Pressure 119/63 132/67 O2 Sat by Pulse 96 98 Oximetry Medical Decision Making - Medical Decision Making This is an 84 year old female who presents to the emergency department for a fall. Was pt. sent in by a medical professional or institution? @ -No Did you speak to anyone other than the patient for history? @ -No Did you review nursing and triage notes? @ -Yes, and I agree, it is accurate with regards to the patient's symptoms. Were old charts reviewed? @ -No Differential Diagnosis? @ -Differential Musculoskeletal Muscular strain, contusion, ligament sprain, fracture, arthritis, septic arthritis, bursitis, cellulitis, muscle spasm, nerve compression, DVT, arterial occlusion, herpes zoster, electrolyte abnormality, tumor.... This is not meant to be in all inclusive list EKG interpreted by me (3pts min.)? @ -EKG interpreted by me demonstrating the following: Sinus rhythm. Ventricular rate 67 bpm, KS interval 192 ms, QRS duration 102 ms, QTc 433 ms. X-rays interpreted by me (1pt min.)? @ -Chest x-ray obtained, my interpretation identifies no localized consolidations or infiltrates. X-ray of the right shoulder and left knee obtained. My interpretation identifies no acute fractures on any of the images. CT interpreted by me (1pt min.)? @ -Not obtained U/S interpreted by me (1pt. min.)? @ -Not obtained What testing was considered but not performed? (CT, X-rays, U/S, labs)? Why? @ -None What meds were considered but not given? Why? @ -None Did you discuss the management of the patient with other professionals? @ -No Did you reconcile home meds? @ -No Was smoking cessation discussed for >3mins.? @ -No Was critical care preformed (if so, how long)? @ -No Were there social determinants of health that impacted care today? How? (Homelessness, low income, unemployed, alcoholism, drug addiction, transportation, low edu. Level, literacy, decrease access to med. care, assisted, rehab)? @ -No Was there de-escalation of care discussed even if they declined? (Discuss DNR or withdrawal of care, Hospice)? @ -No What co-morbidities impacted this encounter? (DM, HTN, Smoking, COPD, CAD, Cancer, CVA, Hep., AIDS, mental health diagnosis, sleep apnea, morbid obesity)? @ -Osteoarthritis Was patient admitted / discharged? @ -Discharged. Lab work demonstrates a mildly elevated lactic acid of 2.1. BUN elevated at 53 suggestive of dehydration, however creatinine and eGFR are relatively stable when compared with prior. Alcohol level 91. Urinalysis consistent with infection and urine was sent for culture. She was treated with 1 L of lactated Ringer's. 1 g of ceftriaxone administered in the emergency department. Prescription for cefuroxime provided with dosing instructions revi ewed for the UTI. Otherwise advised follow-up with her PCP for reevaluation. Patient discharged home in stable condition. Case discussed with ED attending Dr. Giron. Return precautions reviewed in depth, the patient is instructed to return to the emergency department with any new, worsening, or concerning symptoms. Patient verbalized understanding. Undiagnosed new problem with uncertain prognosis? @ -None Drug Therapy requiring intensive monitoring for toxicity (Heparin, Nitro, Insulin, Cardizem)? @ -None Were any procedures done? @ -None Diagnosis/symptom? @ -Fall, UTI Acute, or Chronic, or Acute on Chronic? @ -Acute Uncomplicated (without systemic symptoms) or Complicated (systemic symptoms)? @ -Uncomplicated Side effects of treatment? @ -None Exacerbation, Progression, or Severe Exacerbation] @ -Not applicable Poses a threat to life or bodily function? @ -No - Lab Data Result diagrams: 06/08/25 14:15 06/08/25 14:15 Lab Results 06/08/25 06/08/25 06/08/25 Range/Units 14:15 14:15 14:15 WBC 9.31 (4.50-10.00) 10*3/uL RBC 3.29 L (4.10-5.20) 10*6/uL Hgb 11.2 L (12.0-15.0) g/dL Hct 32.1 L (37.2-46.3) % MCV 97.6 H (80.0-97.0) fL MCH 34.0 H (27.0-32.0) pg MCHC 34.9 (32.0-37.0) g/dL Plt Count 259 (140-440) 10*3/uL MPV 9.4 L (9.5-12.2) fL Immature Gran % (Auto) 0.6 % Neutrophils % 67.3 % Lymphocytes % 19.3 % Monocytes % 8.1 % Eosinophils % 4.4 % Basophils % 0.3 % Immature Gran # 0.06 H (0.00-0.04) 10*3/uL Neutrophils # 6.26 (1.80-7.70) 10*3/uL Lymphocytes # 1.80 (0.90-5.00) 10*3/uL Monocytes # 0.75 (0.20-1.00) 10*3/uL Eosinophils # 0.41 H (0.04-0.35) 10*3/uL Basophils # 0.03 (0.00-0.10) 10*3/uL Sodium 131 L (137-145) mmol/L Potassium 4.5 (3.5-5.1) mmol/L Chloride 95 L (98-107) mmol/L Carbon Dioxide 25 (22-30) mmol/L Anion Gap 11 mmol/L BUN 53 H (7-17) mg/dL Creatinine 1.79 H (0.52-1.04) mg/dL Est GFR (CKD-EPI)AfAm 30 (>60 ml/min/1.73 sqM) Est GFR (CKD-EPI)NonAf 26 (>60 ml/min/1.73 sqM) Glucose 141 H (74-99) mg/dL Plasma Lactic Acid Scooter 2.1 H* (0.7-2.0) mmol/L Calcium 9.8 (8.4-10.2) mg/dL Magnesium 1.7 (1.6-2.3) mg/dL Total Bilirubin 0.4 (0.2-1.3) mg/dL AST 29 (14-36) U/L ALT 15 (4-34) U/L Alkaline Phosphatase 82 (38-126) U/L Creatine Kinase 82 (30-135) U/L Total Protein 6.7 (6.3-8.2) g/dL Albumin 4.0 (3.5-5.0) g/dL Urine Color Urine Appearance (Clear) Urine pH (5.0-8.0) Ur Specific [place] (1.001-1.035) Urine Protein (Negative) Urine Glucose (UA) (Negative) Urine Ketones (Negative) Urine Blood (Negative) Urine Nitrite (Negative) Urine Bilirubin (Negative) Urine Urobilinogen (<2.0) mg/dL Ur Leukocyte Esterase (Negative) Urine RBC (0-5) /hpf Urine WBC (0-5) /hpf Ur Squamous Epith Cells (0-4) /hpf Urine Bacteria (None) /hpf Hyaline Casts (0-2) /lpf Urine Mucus (None) /hpf Urine Yeast (Budding) (None) /hpf Serum Alcohol 91 mg/dL 06/08/25 Range/Units 14:51 WBC (4.50-10.00) 10*3/uL RBC (4.10-5.20) 10*6/uL Hgb (12.0-15.0) g/dL Hct (37.2-46.3) % MCV (80.0-97.0) fL MCH (27.0-32.0) pg MCHC (32.0-37.0) g/dL Plt Count (140-440) 10*3/uL MPV (9.5-12.2) fL Immature Gran % (Auto) % Neutrophils % % Lymphocytes % % Monocytes % % Eosinophils % % Basophils % % Immature Gran # (0.00-0.04) 10*3/uL Neutrophils # (1.80-7.70) 10*3/uL Lymphocytes # (0.90-5.00) 10*3/uL Monocytes # (0.20-1.00) 10*3/uL Eosinophils # (0.04-0.35) 10*3/uL Basophils # (0.00-0.10) 10*3/uL Sodium (137-145) mmol/L Potassium (3.5-5.1) mmol/L Chloride (98-107) mmol/L Carbon Dioxide (22-30) mmol/L Anion Gap mmol/L BUN (7-17) mg/dL Creatinine (0.52-1.04) mg/dL Est GFR (CKD-EPI)AfAm (>60 ml/min/1.73 sqM) Est GFR (CKD-EPI)NonAf (>60 ml/min/1.73 sqM) Glucose (74-99) mg/dL Plasma Lactic Acid Scooter (0.7-2.0) mmol/L Calcium (8.4-10.2) mg/dL Magnesium (1.6-2.3) mg/dL Total Bilirubin (0.2-1.3) mg/dL AST (14-36) U/L ALT (4-34) U/L Alkaline Phosphatase (38-126) U/L Creatine Kinase (30-135) U/L Total Protein (6.3-8.2) g/dL Albumin (3.5-5.0) g/dL Urine Color Colorless Urine Appearance Cloudy H (Clear) Urine pH 6.5 (5.0-8.0) Ur Specific [place] 1.008 (1.001-1.035) Urine Protein Negative (Negative) Urine Glucose (UA) Negative (Negative) Urine Ketones Negative (Negative) Urine Blood Small H (Negative) Urine Nitrite Negative (Negative) Urine Bilirubin Negative (Negative) Urine Urobilinogen <2.0 (<2.0) mg/dL Ur Leukocyte Esterase Large H (Negative) Urine RBC 10 H (0-5) /hpf Urine WBC 53 H (0-5) /hpf Ur Squamous Epith Cells 2 (0-4) /hpf Urine Bacteria Many H (None) /hpf Hyaline Casts 2 (0-2) /lpf Urine Mucus Rare H (None) /hpf Urine Yeast (Budding) Few H (None) /hpf Serum Alcohol mg/dL - Radiology Data Radiology results: report reviewed, image reviewed Disposition Clinical Impression: Fall, UTI (urinary tract infection) Disposition: HOME SELF-CARE Instructions (If sedation given, give patient instructions): Urinary Tract Infection in Women (ED), Fall Prevention for Older Adults (ED) Additional Instructions: Return to the emergency department with any new, worsening, or concerning symptoms. Take the antibiotic as prescribed for 10 days. Follow up with your [facility] care provider in 1-2 days. Prescriptions: cefuroxime axetiL [Ceftin] 500 mg PO BID 10 Days #20 tab Is patient prescribed a controlled substance at d/c from ED?: No Referrals: Joceline,Sheree, DO [Primary Care Provider] - 1-2 days Time of Disposition: 15:48
[2025-06-08 14:30] LABS: Basophils # (A) 0.03 10*3/uL (0.00-0.10); Basophils % (A) 0.3 %; Eosinophils # (A) 0.41 10*3/uL (0.04-0.35); Eosinophils % (A) 4.4 %; HCT 32.1 % (37.2-46.3); HGB 11.2 g/dL (12.0-15.0); Lymphocytes # (A) 1.80 10*3/uL (0.90-5.00); Lymphocytes % (A) 19.3 %; MCH 34.0 pg (27.0-32.0); MCHC 34.9 g/dL (32.0-37.0); MCV 97.6 fL (80.0-97.0); Monocytes # (A) 0.75 10*3/uL (0.20-1.00); Monocytes % (A) 8.1 %; Neutrophils # (A) 6.26 10*3/uL (1.80-7.70); Neutrophils % (A) 67.3 %; Platelet Count 259 10*3/uL (140-440); RBC 3.29 10*6/uL (4.10-5.20); RDW 14.9 % (11.5-14.5); WBC 9.31 10*3/uL (4.50-10.00)
[2025-06-08 14:50] LABS: ALT 15 U/L (4-34); AST 29 U/L (14-36); African American GFR (CKD) 30 (>60 ml/min/1.73 sqM); Albumin 4.0 g/dL (3.5-5.0); Alkaline Phosphatase 82 U/L (38-126); Anion Gap 11 mmol/L; Blood Urea Nitrogen 53 mg/dL (7-17); Calcium 9.8 mg/dL (8.4-10.2); Carbon Dioxide 25 mmol/L (22-30); Chloride 95 mmol/L (98-107); Creatine Kinase 82 U/L (30-135); Glucose 141 mg/dL (74-99); Magnesium 1.7 mg/dL (1.6-2.3); Non-African American GFR(CKD) 26 (>60 ml/min/1.73 sqM); Potassium 4.5 mmol/L (3.5-5.1); Sodium 131 mmol/L (137-145); Total Protein 6.7 g/dL (6.3-8.2)
[2025-06-08] MEDS: LACTATED RINGERS 1,000 ML IV ONE (14:51)
[2025-06-08 15:16] LABS: Bacteria,Urine Many /hpf; Bilirubin,Urine Negative (Negative); Blood,Urine Small (Negative); Budding Yeast,Urine Few /hpf; Color,Urine Colorless; Glucose,Urine (UA) Negative (Negative); Hyaline Casts,Urine 2 /lpf (0-2); Ketones,Urine Negative (Negative); Leukocyte Esterase,Urine Large (Negative); Mucus,Urine Rare /hpf; Nitrite,Urine Negative (Negative); PH, Urine 6.5 (5.0-8.0); Protein,Urine Negative (Negative); RBC,Urine 10 /hpf (0-5); Specific Gravity,Urine 1.008 (1.001-1.035); Squamous Epithelial Cell,Urine 2 /hpf (0-4); Urobilinogen,Urine <2.0 mg/dL (<2.0); WBC,Urine 53 /hpf (0-5)
--- NOTE | 2025-06-08 15:31 | XR ---
EXAMINATION TYPE: XR chest 2V DATE OF EXAM: 06/08/2025 3:19 PM COMPARISON: Chest radiographs from 06/05/2024 TECHNIQUE: XR chest 2V Frontal and lateral views of the chest. CLINICAL INDICATION:Female, 84 years old with history of Fall; pain FINDINGS: Lungs/Pleura: There is no evidence of pleural effusion, focal consolidation, or pneumothorax. Pulmonary vascularity: Unremarkable. Heart/mediastinum: Cardiomediastinal silhouette is unremarkable. Atherosclerotic calcifications are seen in the aorta. Musculoskeletal: No acute osseous pathology. Midline sternotomy wires are noted and stable. Multileve l degenerative disc disease of the thoracic spine. Right shoulder arthroplasty change. IMPRESSION: No acute cardiopulmonary disease/process. [facility], , 06/08/2025 3:28 PM
--- NOTE | 2025-06-08 15:32 | XR ---
EXAMINATION TYPE: XR shoulder complete RT DATE OF EXAM: 06/08/2025 3:21 PM INDICATION: Patient age:Female; 84 years old; Reason for study: Fall; pain COMPARISON: Right shoulder radiograph 05/15/2023, 05/16/2023 TECHNIQUE: The right shoulder was examined in AP, internally rotated and scapular Y projections. . FINDINGS: Surgical changes from right shoulder arthroplasty. Hardware appears intact with appropriate alignment . No evidence of acute osseous pathology, joint dislocation, or soft tissue swelling. Right AC joint arthropathy with joint space narrowing and sclerosis. The remaining portions of the visualized chest are unremarkable. IMPRESSION: 1. No acute osseous pathology. 2. Postsurgical changes from right shoulder arthroplasty. Hardware appears intact with appropriate a lignment. [facility], , 06/08/2025 3:30 PM
--- NOTE | 2025-06-08 15:34 | XR ---
EXAMINATION TYPE: XR knee complete LT DATE OF EXAM: 06/08/2025 3:20 PM INDICATION: Patient age:Female; 84 years old; Reason for study: Fall; PHH. pain COMPARISON: None. TECHNIQUE: The Left knee(s) was examined in Frontal, lateral and oblique projections. FINDINGS: Diffuse bone demineralization. No evidence of any acute osseous pathology or joint effusio n is noted. Mild prepatellar soft tissue swelling. Vascular sclerosis. Surgical clips within the medi al aspect of the right lower extremity medial to the tibia. IMPRESSION: 1. No acute osseous pathology. 2. Mild prepatellar soft tissue swelling. [facility], , 06/08/2025 3:31 PM
[2025-06-08] MEDS: cefTRIAXone IN SWFI 1,000 MG/10 ML SYRINGE IVP STA (16:00)
[2025-06-08 17:02] VITALS: BP 154/57; PULSE 72; RESP 20; TEMP 97.7
== END 2025-06-08 17:02 | disposition home or self-care (01) ==
LOC: EC 13:32
DX: N39.0 Urinary tract infection, site not specified (principal); M19.011 Primary osteoarthritis, right shoulder; Z87.891 Personal history of nicotine dependence; W19.XXXA Unspecified fall, initial encounter
CPT/HCPCS: 36415; 80053; 82550; 83605; 83735; 85025; 81001; 87086; 73030; 73562; 71046; 99284; 96374; 96361; G0480; J0696; 80320

== ENCOUNTER 2025-06-08 22:41 | Observation (INO) | payer MEDICARE ==
[2025-06-08] MEDS: HYDROcodone/APAP 5-325MG 1 EACH TAB PO STA (23:04)
--- NOTE | 2025-06-08 23:28 | ED ---
General Adult HPI - General Chief complaint: Extremity Injury, Lower Stated complaint: knee pain Time Seen by Provider: 06/08/25 22:45 Source: patient, EMS, RN notes reviewed, old records reviewed Mode of arrival: EMS Limitations: physical limitation - History of Present Illness Initial comments: 84-year-old female who presents emergency department for continued left knee pain. Was evaluated earlier today after a fall. She fell while getting off the toilet. Imaging obtained earlier included knee x-ray, shoulder x-ray, chest x- ray all of which were negative for traumatic injury. Labs were obtained earlier as well which showed a UTI with elevated creatinine however patient is within acceptable limits for her CKD. Alcohol level is also elevated at 91. She was eventually discharged home. She returns today because she has been unable to walk on the left knee. She does live at home. She does endorse that they are currently fumigating her building for bedbugs and is unknown if she has any on her at this time. Denies any new injuries. Has not yet filled her prescription for UTI. Presents for further evaluation. Normally takes care of her own ADLs and ambulates without issue.Past medical history includes hypertension, hyp erlipidemia, CAD. Patient is not on blood thinners. No recurrent fall.Uses walker at baseline. - Related Data Home Medications Medication Instructions Recorded Confirmed Ascorbic Acid [Vitamin C] 1,000 mg PO DAILY 06/06/24 06/06/24 Calcium Carbonate/Vitamin D3 1 tab PO DAILY 06/06/24 06/06/24 [Calcium 600-Vit D3 10 mcg (400 Iu)] Turmeric Root Extract [Turmeric 500 mg PO DAILY 06/06/24 06/06/24 Curcumin] Previous Rx's Medication Instructions Recorded Aspirin 81 mg PO DAILY tab 06/09/24 Atorvastatin [Lipitor] 80 mg PO DAILY tab 06/09/24 Cholecalciferol [Vitamin D3 (125 125 mcg PO DAILY tab 06/09/24 Mcg = 5000 Iu)] Cyanocobalamin [Vitamin B-12] 1,000 mcg PO DAILY tab 06/09/24 HYDROcodone/APAP 5-325MG [[place] 1 each PO Q6HR PRN #4 tab 06/09/24 5-325] Mirabegron [Myrbetriq] 50 mg PO DAILY 06/09/24 Pantoprazole [Protonix] 40 mg PO AC-BRKFST tab 06/09/24 Phenazopyridine HCl [Pyridium] 100 mg PO TID 2 Days #6 tab 06/09/24 QUEtiapine [SEROquel] 12.5 mg PO HS PRN tab 06/09/24 Valsartan 40 mg PO DAILY #30 tab 06/09/24 amLODIPine [Norvasc] 5 mg PO DAILY tab 06/09/24 carvediloL [Coreg] 3.125 mg PO BID #60 tablet 06/09/24 cefuroxime axetiL [Ceftin] 500 mg PO BID 7 Days #14 tab 06/09/24 cefuroxime axetiL [Ceftin] 500 mg PO BID 10 Days #20 tab 06/08/25 Allergies Allergy/AdvReac Type Severity Reaction Status Date / Time No Known Allergies Allergy Verified 06/09/25 00:08 Review of Systems ROS Statement: Those systems with pertinent positive or pertinent negative responses have been documented in the HPI. Review of Systems: CONST: Denies fever EYES: Denies blurry vision ENT: Denies nasal congestion C/V: Denies Chest pain RESP: Denies shortness of breath GI: Denies abdominal pain : Denies dysuria SKIN: Denies rash. MSK: Endorses left knee pain NEURO: Denies headache ROS Other: All systems not noted in ROS Statement are negative. Past Medical History Past Medical History: Coronary Artery Disease (CAD), CVA/TIA, Hyperlipidemia, Hypertension, Myocardial Infarction ([place]), Osteoarthritis (OA), Vascular Disorder Additional Past Medical History / Comment(s): borderline diabetic, UTI PAST SEPTICEMIA, HIATAL HERNIA Last Myocardial Infarction Date:: 1999 History of Any Multi-Drug Resistant Organisms: CRE, Other MDRO Date of last positivie culture/infection: 07/21/21 MDRO Source:: URINE Past Surgical History: Adenoidectomy, Cholecystectomy, Coronary Bypass/CABG, Heart Catheterization, Joint Replacement, Tonsillectomy, Tubal Ligation Additional Past Surgical History / Comment(s): TRIPLE VESSEL CABG, RT SHOULDER HEMIARTHROPLASTY, LT CAROTI ENDART,CANDY CATARACTS, EGD/COLONOSCOPY."INJ IN LT EYE" Past Anesthesia/Blood Transfusion Reactions: No Reported Reaction Past Psychological History: No Psychological Hx Reported Smoking Status: Former smoker, Never smoker Past Alcohol Use History: Occasional Past Drug Use History: None Reported - Past Family History Father Family Medical History: CVA/TIA, Hypertension, Neurologic Disorder Additional Family Medical History / Comment(s): STROKES RAN ON DAD'S SIDE OF FAMILY Mother Family Medical History: COPD Additional Family Medical History / Comment(s): EMPHYSEMA Sister(s) Family Medical History: Cancer Additional Family Medical History / Comment(s): "FEMALE CANCER" General Exam - General Exam Comments Initial Comments: General: Appears in mild distress secondary to pain. HEAD: Normal with no signs of head trauma. EYES: PERRLA, EOMI, conjunctiva normal, no discharge. ENT: Hearing grossly intact, normal oropharynx. RESPIRATORY: Clear breath sounds bilaterally. No wheezes, rales, or rhonchi. C/V: Regular rate and rhythm. S1 and S2 auscultated, no edema, peripheral pulses 2+ and intact throughout ABD: Abd is soft, nontender, nondistended EXT: Decreased range of motion of left knee secondary to pain. Able to hold leg in full extension against gravity but does hurt her left knee. Neurovasc intact throughout the left lower extremity. SKIN: No rashes or lesions observed on exposed skin. Bedbug found by nursing staff prior to my evaluation on her skin. NEURO: Alert and orient x 4. No focal sensory or strength deficits. Limitations: physical limitation Course Vital Signs 06/08/25 06/08/25 06/09/25 22:43 23:34 01:24 Temperature 98.4 F 98.1 F Pulse Rate 77 91 85 Respiratory 19 19 Rate Blood Pressure 175/67 164/71 169/80 O2 Sat by Pulse 100 98 97 Oximetry Medical Decision Making - Medical Decision Making Was pt. sent in by a medical professional or institution (, PA, CAREER DEVELOPMENT MANAGER, urgent care, hospital, or long-term...) When possible be specific @ -No Did you speak to anyone other than the patient for history (EMS, parent, family, police, friend...)? What history was obtained from this source @ -No Did you review nursing and triage notes (agree or disagree)? Why? @ -I reviewed and agree with nursing and triage notes Were old charts reviewed (outside hosp., previous admission, EMS record, old EKG, old radiological studies, urgent care reports/EKG's, long-term records)? Report findings @ -Reviewed labs from earlier today which does show patient had a UTI and was started on antibiotics. Urine culture was sent. Differential Diagnosis (chest pain, altered mental status, abdominal pain women, abdominal pain men, vaginal bleeding, weakness, fever, dyspnea, syncope, headache, dizziness, GI bleed, back pain, seizure, CVA, palpatations, mental health, musculoskeletal)? @ -Differential Musculoskeletal Muscular strain, contusion, ligament sprain, fracture, arthritis, septic arthritis, bursitis, cellulitis, muscle spasm, nerve compression, DVT, arterial occlusion, herpes zoster, electrolyte abnormality, tumor.... This is not meant to be in all inclusive list EKG interpreted by me (3pts min.). @ -None none X-rays interpreted by me (1pt min.). @ -None done CT interpreted by me (1pt min.). @ -CT of the left knee negative for any obvious acute fracture or injury. There is some prepatellar soft tissue swelling. U/S interpreted by me (1pt. min.). @ -None done What testing was considered but not performed or refused? (CT, X-rays, U/S, labs)? Why? @ -None What meds were considered but not given or refused? Why? @ -None Did you discuss the management of the patient with other professionals (professionals i.e. , PA, CAREER DEVELOPMENT MANAGER, lab, RT, psych nurse, secondary social studies teacher, ice handler, teacher, commissioned security officer, pillowcase cleaner)? Give summary @ -I spoke with the admitting team, SENDY Griffith of [facility] who accepted the admission. Was smoking cessation discussed for >3mins.? @ -No Was critical care preformed (if so, how long)? @ -No Were there social determinants of health that impacted care today? How? (Homelessness, low income, unemployed, alcoholism, drug addiction, transportation, low edu. Level, literacy, decrease access to med. care, alf, rehab)? @ -No Was there de-escalation of care discussed even if they declined (Discuss DNR or withdrawal of care, Hospice)? DNR status @ -No What co-morbidities impacted this encounter? (DM, HTN, Smoking, COPD, CAD, Cancer, CVA, ARF, Chemo, Hep., AIDS, mental health diagnosis, sleep apnea, morbid obesity)? @ -None Was patient admitted / discharged? Hospital course, mention meds given and route, prescriptions, significant lab abnormalities, going to OR and other pertinent info. @ -Presents status post fall. Still having left knee pain. X-ray earlier unremarkable but we will obtain CT at this time. Basic labs will also be obtained. She was in agreement this plan. Vitals are within acceptable limits. Presented with bedbugs and will be decontaminated prior to workup. She was in agreement this plan. Labs returned unremarkable. CT returned negative for any obvious acute fracture or injury. This was after patient was decontaminated for bedbugs. On reevaluation, patient still having significant pain in left knee. I believe she has a fall risk if discharged home and she has no help at home. Therefore we will admit the patient for debility. Orthopedics will evaluate patient for the intractable left knee pain. We will continue with IV Rocephin for UTI and follow-up on urine culture from yesterday. Patient was in agreement this plan. I spoke with the admitting team, SENDY Griffith of [facility] who accepted the admission. Consult placed to physical therapy and Occupational Therapy. Undiagnosed new problem with uncertain prognosis? @ -No Drug Therapy requiring intensive monitoring for toxicity (Heparin, Nitro, Insulin, Cardizem)? @ -No Were any procedures done? @ -No Diagnosis/symptom? @ -Intractable left knee pain, UTI, debility, Bedbugs Acute, or Chronic, or Acute on Chronic? @ -Acute Uncomplicated (without systemic symptoms) or Complicated (systemic symptoms)? @ -Complicated Side effects of treatment? @ -None Exacerbation, Progression, or Severe Exacerbation] @ -No Poses a threat to life or bodily function? @ -Potentially, yes - Lab Data Result diagrams: 06/08/25 23:55 06/09/25 00:05 Lab Results 06/08/25 06/09/25 Range/Units 23:55 00:05 WBC 11.85 H (4.50-10.00) 10*3/uL RBC 3.09 L (4.10-5.20) 10*6/uL Hgb 10.4 L (12.0-15.0) g/dL Hct 29.6 L (37.2-46.3) % MCV 95.8 (80.0-97.0) fL MCH 33.7 H (27.0-32.0) pg MCHC 35.1 (32.0-37.0) g/dL Plt Count 258 (140-440) 10*3/uL MPV 9.7 (9.5-12.2) fL Immature Gran % (Auto) 0.6 % Neutrophils % 72.0 % Lymphocytes % 16.1 % Monocytes % 9.1 % Eosinophils % 1.9 % Basophils % 0.3 % Immature Gran # 0.07 H (0.00-0.04) 10*3/uL Neutrophils # 8.53 H (1.80-7.70) 10*3/uL Lymphocytes # 1.91 (0.90-5.00) 10*3/uL Monocytes # 1.08 H (0.20-1.00) 10*3/uL Eosinophils # 0.22 (0.04-0.35) 10*3/uL Basophils # 0.04 (0.00-0.10) 10*3/uL Sodium 131 L (137-145) mmol/L Potassium 4.1 (3.5-5.1) mmol/L Chloride 98 (98-107) mmol/L Carbon Dioxide 22 (22-30) mmol/L Anion Gap 11 mmol/L BUN 47 H (7-17) mg/dL Creatinine 1.48 H (0.52-1.04) mg/dL Est GFR (CKD-EPI)AfAm 38 (>60 ml/min/1.73 sqM) Est GFR (CKD-EPI)NonAf 33 (>60 ml/min/1.73 sqM) Glucose 108 H (74-99) mg/dL Calcium 9.5 (8.4-10.2) mg/dL Total Bilirubin 0.5 (0.2-1.3) mg/dL AST 33 (14-36) U/L ALT 14 (4-34) U/L Alkaline Phosphatase 73 (38-126) U/L Total Protein 6.1 L (6.3-8.2) g/dL Albumin 3.5 (3.5-5.0) g/dL Disposition Clinical Impression: Infestation by bed bug, UTI (urinary tract infection), Pain in left knee, Debility Disposition: ADMITTED IP TO THIS [facility] Condition: Stable Referrals: None,Stated [Primary Care Provider] - 1-2 days Time of Disposition: 03:00
[2025-06-08] MEDS: SODIUM CHLORIDE 0.9% 1,000 ML IV ONE (23:51)
[2025-06-09 00:19] LABS: Basophils # (A) 0.04 10*3/uL (0.00-0.10); Basophils % (A) 0.3 %; Eosinophils # (A) 0.22 10*3/uL (0.04-0.35); Eosinophils % (A) 1.9 %; HCT 29.6 % (37.2-46.3); HGB 10.4 g/dL (12.0-15.0); Lymphocytes # (A) 1.91 10*3/uL (0.90-5.00); Lymphocytes % (A) 16.1 %; MCH 33.7 pg (27.0-32.0); MCHC 35.1 g/dL (32.0-37.0); MCV 95.8 fL (80.0-97.0); Monocytes # (A) 1.08 10*3/uL (0.20-1.00); Monocytes % (A) 9.1 %; Neutrophils # (A) 8.53 10*3/uL (1.80-7.70); Neutrophils % (A) 72.0 %; Platelet Count 258 10*3/uL (140-440); RBC 3.09 10*6/uL (4.10-5.20); RDW 14.8 % (11.5-14.5); WBC 11.85 10*3/uL (4.50-10.00)
[2025-06-09 01:39] LABS: ALT 14 U/L (4-34); AST 33 U/L (14-36); African American GFR (CKD) 38 (>60 ml/min/1.73 sqM); Albumin 3.5 g/dL (3.5-5.0); Alkaline Phosphatase 73 U/L (38-126); Anion Gap 11 mmol/L; Blood Urea Nitrogen 47 mg/dL (7-17); Calcium 9.5 mg/dL (8.4-10.2); Carbon Dioxide 22 mmol/L (22-30); Chloride 98 mmol/L (98-107); Glucose 108 mg/dL (74-99); Non-African American GFR(CKD) 33 (>60 ml/min/1.73 sqM); Potassium 4.1 mmol/L (3.5-5.1); Sodium 131 mmol/L (137-145); Total Protein 6.1 g/dL (6.3-8.2)
--- NOTE | 2025-06-09 02:32 | CT ---
EXAM: CT Left Lower Extremity Without Intravenous Contrast, Knee CLINICAL HISTORY: ITS.REASON CT Reason: pain, fall TECHNIQUE: Axial computed tomography images of the left knee without intravenous contrast. CTDI is 3.9 mGy and DLP is 153.1 mGy-cm. This CT exam was performed using one or more of the following dose reduction techniques: automated exposure control, adjustment of the mA and/or kV according to patient size, and/or use of iterative reconstruction technique. COMPARISON: No relevant prior studies available. FINDINGS: Bones/joints: Diffuse osseous demineralization. No acute fracture of dislocation. Soft tissues: Prepatellar soft tissue swelling. IMPRESSION: 1. No acute fracture of dislocation. 2. Prepatellar soft tissue swelling.
[2025-06-09] MEDS: MORPHINE SULFATE 4 MG/ML SYRINGE IVP STA (02:44)
[2025-06-09] MEDS ORDERED: ONDANSETRON 4 MG/2 ML VIAL IVP PRN (03:05)
[2025-06-09] MEDS ORDERED: NALOXONE 0.4 MG/ML 1 ML VIAL IV PRN (03:05)
[2025-06-09] MEDS ORDERED: ACETAMINOPHEN TAB 325 MG TAB PO PRN (03:05)
--- NOTE | 2025-06-09 11:17 | P.CNOR ---
History of Present Illness - [facility] Consult date: 06/09/25 History of present illness: This is a 84-year-old female who presented to the emergency department for continued left knee pain. She was evaluated earlier on 06/08/2025 after a fall. She stated she fell while getting off the toilet. She denied loss of consciousness. She denied hitting her head. 06/08/2025 x-rays of the left knee images were reviewed and showed no sign of acute cortical injury. Labs were obtained earlier as well which showed a UTI with elevated creatinine and has CKD. Alcohol level was also elevated at 91. She was eventually discharged home with her daughter and stated she was unable to walk on her left lower extremity due to the left knee pain. She returned on 06/08/2025. She stated she endorse that they are currently fumigating her building for bedbugs and is unknown if she has any on her at this time. Normally takes care of her own ADLs and ambulates without issue. Past medical history includes hypertension, hyperlipidemia, CAD. Patient is not on blood thinners. Uses walker at baseline. She was admitted to medicine and orthopedics was consulted for left knee pain. Patient has difficulty localizing pain. Patient appears to be a poor historian of her medical history. Past Medical History Past Medical History: Coronary Artery Disease (CAD), CVA/TIA, Hyperlipidemia, Hypertension, Myocardial Infarction ([place]), Osteoarthritis (OA), Vascular Disorder Additional Past Medical History / Comment(s): borderline diabetic, UTI PAST SEPTICEMIA, HIATAL HERNIA Last Myocardial Infarction Date:: 1999 History of Any Multi-Drug Resistant Organisms: CRE, Other MDRO Year Discovered:: 07/21/21 MDRO Source:: URINE Past Surgical History: Adenoidectomy, Cholecystectomy, Coronary Bypass/CABG, Heart Catheterization, Joint Replacement, Tonsillectomy, Tubal Ligation Additional Past Surgical History / Comment(s): TRIPLE VESSEL CABG, RT SHOULDER HEMIARTHROPLASTY, LT CAROTI ENDART,CANDY CATARACTS, EGD/COLONOSCOPY."INJ IN LT EYE" Past Anesthesia/Blood Transfusion Reactions: No Reported Reaction Past Psychological History: No Psychological Hx Reported Additional Psychological History / Comment(s): PT IS ALERT AND INDEPENDANT, RETIRE FROM, [employer](DIETARY DEPT) AND WORKS AT THE [employer]. Smoking Status: Former smoker Past Alcohol Use History: Occasional Additional Past Alcohol Use History / Comment(s): QUIT 2006- I PPD. Past Drug Use History: None Reported - Past Family History Father Family Medical History: CVA/TIA, Hypertension, Neurologic Disorder Additional Family Medical History / Comment(s): STROKES RAN ON DAD'S SIDE OF FAMILY Mother Family Medical History: COPD Additional Family Medical History / Comment(s): EMPHYSEMA Sister(s) Family Medical History: Cancer Additional Family Medical History / Comment(s): "FEMALE CANCER" Medications and Allergies Home Medications Medication Instructions Recorded Confirmed Type carvediloL [Coreg] 3.125 mg PO BID #60 tablet 06/09/24 06/09/25 Rx Furosemide [Lasix] 40 mg PO DAILY 06/09/25 06/09/25 History Losartan [Cozaar] 25 mg PO DAILY 06/09/25 06/09/25 History cefuroxime axetiL [Ceftin] 500 mg PO DIRECTED 06/09/25 06/09/25 History Allergies Allergy/AdvReac Type Severity Reaction Status Date / Time No Known Allergies Allergy Verified 06/09/25 10:00 Physical Examination Patient lying in bed. No acute distress. Head is normocephalic and atraumatic. No pain to palpation over the cervical spine or paraspinal muscles. Bilateral upper extremity exam: Inspection: No sign of obvious deformity. Palpation: Nontender to palpation over bilateral clavicle, scapula, shoulder, humerus, elbow, forearm, wrist, hand, or fingers. Vascular: 2+ radial pulse. Capillary refill under 2 seconds in all digits. Sensation: grossly intact to light touch. Bilateral lower extremity exam: Inspection: No obvious deformity of the left hip. The left knee has moderate swelling with ecchymosis with no sign of infection, scars, or open lesions. Left leg has healed surgical incision consistent with prior vein graft harvest for bypass. Palpation: Patient has diffuse tenderness over the left knee. Patient has diffuse tenderness over the left hip. Range of motion: Patient had pain with passive range of motion of the left knee. Patient had pain with passive range of motion of the left hip. Calves were soft to compression, negative Homans' sign. Vascular: Dorsalis pedis pulse 2+ bilaterally. Capillary refill under 2 seconds in all toes. Sensation: grossly intact to light touch throughout the bilateral lower extremities. Results - Labs Labs: Abnormal Lab Results - Last 24 Hours (Table) 06/08/25 06/09/25 Range/Units 23:55 00:05 WBC 11.85 H (4.50-10.00) 10*3/uL RBC 3.09 L (4.10-5.20) 10*6/uL Hgb 10.4 L (12.0-15.0) g/dL Hct 29.6 L (37.2-46.3) % MCH 33.7 H (27.0-32.0) pg Immature Gran # 0.07 H (0.00-0.04) 10*3/uL Neutrophils # 8.53 H (1.80-7.70) 10*3/uL Monocytes # 1.08 H (0.20-1.00) 10*3/uL Sodium 131 L (137-145) mmol/L BUN 47 H (7-17) mg/dL Creatinine 1.48 H (0.52-1.04) mg/dL Glucose 108 H (74-99) mg/dL Total Protein 6.1 L (6.3-8.2) g/dL H & H 06/08/25 Range/Units 23:55 Hgb 10.4 L (12.0-15.0) g/dL Hct 29.6 L (37.2-46.3) % Result Diagrams: 06/08/25 23:55 06/09/25 00:05 Assessment and Plan Assessment: Status post ground-level fall on 06/07/2025 Left knee pain Left hip pain Multiple medical problems Plan: 06/08/2025 CT without contrast left knee images were reviewed and report was reviewed and agree with report no sign of acute cortical injury. Left knee pain: - Continue conservative management at this time. Rest, ice, elevation, and pain control per primary team. - Patient can follow-up in our office for her left knee on an as-needed basis. Left hip pain: - Patient is status post ground-level fall on 06/07/2025 and has been unable to ambulate due to pain. Will obtain left hip and AP pelvis x-ray images. Further plan pending. Thank you for the consult. Dictation was produced using [employer] software, please excuse any grammatical, word or spelling errors.
--- NOTE | 2025-06-09 12:44 | XR ---
Pelvis. HISTORY: Pain after fall. COMPARISON: 05/13/2023. TECHNIQUE: Single AP view the pelvis obtained. FINDINGS: Exam is limited by the patient's body habitus and portable technique. There is a large gas bubble in. There is no pelvic fracture. There is no diastasis of the SI joints and symphysis. Compression screw in the right femoral neck for fixation of a prior intertrochanteric fracture. IMPRESSION: No acute trauma to the pelvis. [facility], Workstation: ALICIA 06/09/2025 12:42 PM
--- NOTE | 2025-06-09 12:46 | XR ---
Left hip HISTORY: Pain following fall. COMPARISON: None TECHNIQUE: 2 views left hip were obtained. Exam is markedly limited by the patient's body habitus. FINDINGS: There is no definite hip fracture or dislocation. IMPRESSION: Limited study but no definite left hip fracture or dislocation. [facility], , 06/09/2025 12:44 PM
--- NOTE | 2025-06-09 15:17 | P.HPIM ---
History of Present Illness H&P Date: 06/09/25 History of present illness; 84-year-old lady with past medical history significant for hypertension presented the ER for complaint of left knee pain. Patient was initially evaluated on 06/08 for a fall for which she presented the ER. Patient apparently was getting up from the toilet when she started to feel dizzy and ended up losing her balance and falling to the ground. Patient did not lose her consciousness. There was no trauma to her head. Patient at the time was complaining of left knee and right shoulder pain. Because of this fall, patient was evaluated the ER, imaging was done for left knee and shoulder x-rays which were negative for any acute fractures. Patient was discharged home but later ended up coming back to the hospital again because of worsening knee pain. Patient states she was unable to bear any weight. Patient was unable to take care of herself because of this worsening knee pain patient came to the ER. There is no complaint of shortness of breath. Patient denies any palpitation. There is no complaint of orthopnea or PND. Denies any nausea, vomiting abdomi nal pain. Patient denies any complaint of dizziness. There is no complaint of headache. Initial lab work done in the ER showed WBC 11.85, hemoglobin 10.4, platelet count 258, sodium 131, potassium 4.1, BUN 47, creatinine 1.48, glucose [address] left knee done showed no acute fractures or dislocation Patient admitted to internal medicine service REVIEW OF SYSTEMS: CONSTITUTIONAL: No fever, no malaise, no fatigue. HEENT: No recent visual problems or hearing problems. Denied any sore throat. CARDIOVASCULAR: As mentioned above PULMONARY: As mentioned above GASTROINTESTINAL: No diarrhea, no nausea, no vomiting, no abdominal pain. NEUROLOGICAL: No headaches, no weakness, no numbness. HEMATOLOGICAL: Denies any bleeding or petechiae. GENITOURINARY: Denies any burning micturition, frequency, or urgency. MUSCULOSKELETAL/RHEUMATOLOGICAL: Denies any joint pain, swelling, or any muscle pain. ENDOCRINE: Denies any polyuria or polydipsia. The rest of the 14-point review of systems is negative. PHYSICAL EXAMINATION: GENERAL: The patient is alert and oriented x3, not in any acute distress. Well developed, well nourished. HEENT: Pupils are round and equally reacting to light. EOMI. No scleral icterus. No conjunctival pallor. Normocephalic, atraumatic. No pharyngeal erythema. No thyromegaly. CARDIOVASCULAR: S1 and S2 present. No murmurs, rubs, or gallops. PULMONARY: Chest is clear to auscultation, no wheezing or crackles. ABDOMEN: Soft, nontender, nondistended, normoactive bowel sounds. No palpable organomegaly. MUSCULOSKELETAL: No joint swelling or deformity. EXTREMITIES: No cyanosis, clubbing, or pedal edema. NEUROLOGICAL: Gross neurological examination did not reveal any focal deficits. SKIN: No rashes. Assessment and plan Left knee pain Fall Generalized weakness UTI History of hypertension Monitor vital signs Monitor CBC Monitor CMP Check orthostatics Order urine culture Start IV Rocephin Resume Coreg Resume Lasix Resume losartan Ordered as needed morphine and [place] Consult orthopedics Consult PT and OT Consult ID Labs and medication were reviewed.. Continue same treatment. Continue with symptomatic treatment. Resume home medication. Monitor labs and vitals. DVT and GI prophylaxis. Further recommendations as per clinical course of the patient Dictation was produced using [employer] dictation software. please excuse any grammatical, word or spelling errors. Past Medical History Past Medical History: Coronary Artery Disease (CAD), CVA/TIA, Hyperlipidemia, Hypertension, Myocardial Infarction (VT), Osteoarthritis (OA), Vascular Disorder Additional Past Medical History / Comment(s): borderline diabetic, UTI PAST SEPTICEMIA, HIATAL HERNIA Last Myocardial Infarction Date:: 1999 History of Any Multi-Drug Resistant Organisms: CRE, Other MDRO Date of last positivie culture/infection: 07/21/21 MDRO Source:: URINE Past Surgical History: Adenoidectomy, Cholecystectomy, Coronary Bypass/CABG, Heart Catheterization, Joint Replacement, Tonsillectomy, Tubal Ligation Additional Past Surgical History / Comment(s): TRIPLE VESSEL CABG, RT SHOULDER HEMIARTHROPLASTY, LT CAROTI ENDART,CANDY CATARACTS, EGD/COLONOSCOPY."INJ IN LT EYE" Past Anesthesia/Blood Transfusion Reactions: No Reported Reaction Past Psychological History: No Psychological Hx Reported Additional Psychological History / Comment(s): PT IS ALERT AND INDEPENDANT, RETIRE FROM, [employer]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 Smoking Status: Former smoker Past Alcohol Use History: Occasional Additional Past Alcohol Use History / Comment(s): QUIT 2007- I PPD. Past Drug Use History: None Reported - Past Family History Father Family Medical History: CVA/TIA, Hypertension, Neurologic Disorder Additional Family Medical History / Comment(s): STROKES RAN ON DAD'S SIDE OF FAMILY Mother Family Medical History: COPD Additional Family Medical History / Comment(s): EMPHYSEMA Sister(s) Family Medical History: Cancer Additional Family Medical History / Comment(s): "FEMALE CANCER" Medications and Allergies Home Medications Medication Instructions Recorded Confirmed Type carvediloL [Coreg] 3.125 mg PO BID #60 tablet 06/09/24 06/09/25 Rx Furosemide [Lasix] 40 mg PO DAILY 06/09/25 06/09/25 History Losartan [Cozaar] 25 mg PO DAILY 06/09/25 06/09/25 History cefuroxime axetiL [Ceftin] 500 mg PO DIRECTED 06/09/25 06/09/25 History Allergies Allergy/AdvReac Type Severity Reaction Status Date / Time No Known Allergies Allergy Verified 06/09/25 10:00 Physical Exam Vitals: Vital Signs Temp Pulse Pulse Resp BP BP Pulse Ox 06/09/25 07:08 97.9 F 71 18 178/73 99 06/09/25 05:41 97.6 F 74 18 179/75 98 06/09/25 04:25 70 17 169/80 94 L 06/09/25 01:24 98.1 F 85 19 169/80 97 06/08/25 23:34 91 164/71 98 06/08/25 22:43 98.4 F 77 19 175/67 100 Intake and Output 06/08/25 06/09/25 06/09/25 22:59 06:59 14:59 Intake Total 60 Balance 60 Intake: Oral 60 Other: Weight 65.771 kg 65.771 kg Results CBC & Chem 7: 06/08/25 23:55 06/09/25 00:05 Labs: Abnormal Lab Results - Last 24 Hours (Table) 06/08/25 06/09/25 Range/Units 23:55 00:05 WBC 11.85 H (4.50-10.00) 10*3/uL RBC 3.09 L (4.10-5.20) 10*6/uL Hgb 10.4 L (12.0-15.0) g/dL Hct 29.6 L (37.2-46.3) % MCH 33.7 H (27.0-32.0) pg Immature Gran # 0.07 H (0.00-0.04) 10*3/uL Neutrophils # 8.53 H (1.80-7.70) 10*3/uL Monocytes # 1.08 H (0.20-1.00) 10*3/uL Sodium 131 L (137-145) mmol/L BUN 47 H (7-17) mg/dL Creatinine 1.48 H (0.52-1.04) mg/dL Glucose 108 H (74-99) mg/dL Total Protein 6.1 L (6.3-8.2) g/dL Thrombosis Risk Factor Assmnt - Choose All That Apply Any of the Below Risk Factors Present?: No Other Risk Factors: Yes Each Risk Factor Represents 3 Points: Age 75 years or older Other congenital or acquired thrombophilia - If yes, enter type in comment: No Thrombosis Risk Factor Assessment Total Risk Factor Score: 3 Thrombosis Risk Factor Assessment Level: Moderate Risk
[2025-06-09 19:33] LABS: Amorphous Sediment,Urine Rare /hpf; Bacteria,Urine Many /hpf; Bilirubin,Urine Negative (Negative); Blood,Urine Trace (Negative); Color,Urine Colorless; Glucose,Urine (UA) Negative (Negative); Ketones,Urine Negative (Negative); Leukocyte Esterase,Urine Large (Negative); Nitrite,Urine Negative (Negative); PH, Urine 7.0 (5.0-8.0); Protein,Urine Negative (Negative); RBC,Urine 4 /hpf (0-5); Specific Gravity,Urine 1.007 (1.001-1.035); Squamous Epithelial Cell,Urine 1 /hpf (0-4); Urobilinogen,Urine <2.0 mg/dL (<2.0); WBC,Urine 57 /hpf (0-5)
[2025-06-09] MEDS: HYDROcodone/APAP 5-325MG 1 EACH TAB PO PRN (20:12)
--- NOTE | 2025-06-09 23:43 | P.CONS ---
History of Present Illness - Reason for Consult Consult date: 06/09/25 UTI Requesting physician: Alvaro Katz - Chief Complaint Weakness and fall x 1 day - History of Present Illness Patient is a 84-year-old female with a past medical history significant for Coronary Artery Disease (CAD), CVA/TIA, Hyperlipidemia, Hypertension, Myocardial Infarction (AR), Osteoarthritis (OA), Vascular Disorder presenting to the hospital for evaluation of left knee pain in this patient who did have a fall the day of presentation to the hospital patient fell while trying to get out of the toilet patient is also complaining of significant burning and frequency of urine as well as suprapubic pain in this patient Symptom has been going on for the last 2 days along with generalized weakness on presentation to the hospital was afebrile and no fever have recorded subsequently, patient was not tachycardic hypotensive or hypoxic patient did have elevated white count 11.85 creatinine is 1.48 UA not collected infectious he was consulted for UTI patient did have a knee CT no acute fracture or dislocation prepatellar soft tissue swelling Review of Systems Positive point and negatives has been mentioned in the HPI, complete review of systems was performed and all other systems are negative Past Medical History Past Medical History: Coronary Artery Disease (CAD), CVA/TIA, Hyperlipidemia, Hypertension, Myocardial Infarction (AR), Osteoarthritis (OA), Vascular Disorder Additional Past Medical History / Comment(s): borderline diabetic, UTI PAST SEPTICEMIA, HIATAL HERNIA Last Myocardial Infarction Date:: 1999 History of Any Multi-Drug Resistant Organisms: CRE, Other MDRO Year Discovered:: 07/21/21 MDRO Source:: URINE Past Surgical History: Adenoidectomy, Cholecystectomy, Coronary Bypass/CABG, Heart Catheterization, Joint Replacement, Tonsillectomy, Tubal Ligation Additional Past Surgical History / Comment(s): TRIPLE VESSEL CABG, RT SHOULDER HEMIARTHROPLASTY, LT CAROTI ENDART,CANDY CATARACTS, EGD/COLONOSCOPY."INJ IN LT EYE" Past Anesthesia/Blood Transfusion Reactions: No Reported Reaction Past Psychological History: No Psychological Hx Reported Additional Psychological History / Comment(s): PT IS ALERT AND INDEPENDANT, RETIRE FROM, [employer]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 Smoking Status: Former smoker Past Alcohol Use History: Occasional Additional Past Alcohol Use History / Comment(s): QUIT 2006- I PPD. Past Drug Use History: None Reported - Past Family History Father Family Medical History: CVA/TIA, Hypertension, Neurologic Disorder Additional Family Medical History / Comment(s): STROKES RAN ON DAD'S SIDE OF FAMILY Mother Family Medical History: COPD Additional Family Medical History / Comment(s): EMPHYSEMA Sister(s) Family Medical History: Cancer Additional Family Medical History / Comment(s): "FEMALE CANCER" Medications and Allergies Home Medications Medication Instructions Recorded Confirmed Type carvediloL [Coreg] 3.125 mg PO BID #60 tablet 06/09/24 06/09/25 Rx Furosemide [Lasix] 40 mg PO DAILY 06/09/25 06/09/25 History Losartan [Cozaar] 25 mg PO DAILY 06/09/25 06/09/25 History cefuroxime axetiL [Ceftin] 500 mg PO DIRECTED 06/09/25 06/09/25 History Allergies Allergy/AdvReac Type Severity Reaction Status Date / Time No Known Allergies Allergy Verified 06/09/25 10:00 Physical Exam Vitals: Vital Signs Temp Pulse Pulse Resp BP BP Pulse Ox 06/09/25 13:04 98.1 F 66 18 178/64 98 06/09/25 07:08 97.9 F 71 18 178/73 99 06/09/25 05:41 97.6 F 74 18 179/75 98 06/09/25 04:25 70 17 169/80 94 L 06/09/25 01:24 98.1 F 85 19 169/80 97 06/08/25 23:34 91 164/71 98 06/08/25 22:43 98.4 F 77 19 175/67 100 Intake and Output 06/09/25 06/09/25 06/09/25 06:59 14:59 22:59 Intake Total 178 Balance 178 Intake: Oral 178 Other: Weight 65.771 kg GENERAL DESCRIPTION: Elderly female lying in bed, no distress. No tachypnea or accessory muscle of respiration use. HEENT: Shows Pallor , no scleral icterus. Oral mucous membrane is dry. NECK: Trachea central, no thyromegaly. LUNGS: Unlabored breathing. Clear to auscultation anteriorly. No wheeze or crackle. HEART: S1, S2, regular rate and rhythm. No loud murmur ABDOMEN: Soft, no tenderness , guarding or rigidity, no organomegaly EXTREMITIES: No edema of feet. SKIN: No rash, no masses palpable. NEUROLOGICAL: The patient is awake, alert, oriented x3, mood and affect normal. Results CBC & Chem 7: 06/08/25 23:55 06/09/25 00:05 Labs: Abnormal Lab Results - Last 24 Hours (Table) 06/08/25 06/09/25 Range/Units 23:55 00:05 WBC 11.85 H (4.50-10.00) 10*3/uL RBC 3.09 L (4.10-5.20) 10*6/uL Hgb 10.4 L (12.0-15.0) g/dL Hct 29.6 L (37.2-46.3) % MCH 33.7 H (27.0-32.0) pg Immature Gran # 0.07 H (0.00-0.04) 10*3/uL Neutrophils # 8.53 H (1.80-7.70) 10*3/uL Monocytes # 1.08 H (0.20-1.00) 10*3/uL Sodium 131 L (137-145) mmol/L BUN 47 H (7-17) mg/dL Creatinine 1.48 H (0.52-1.04) mg/dL Glucose 108 H (74-99) mg/dL Total Protein 6.1 L (6.3-8.2) g/dL Assessment and Plan (1) Leukocytosis Current Visit: Yes Status: Acute Code(s): D72.829 - ELEVATED WHITE BLOOD CELL COUNT, UNSPECIFIED SNOMED Code(s): 054114559 (2) Urinary tract infection Current Visit: Yes Status: Acute Code(s): N39.0 - URINARY TRACT INFECTION, SITE NOT SPECIFIED SNOMED Code(s): 64003802 Plan: 1patient presented to the hospital weakness did have a fall patient also having significant urinary symptoms of burning frequency suprapubic pain with elevated white count concerning for symptomatic UTI likely from enteric gram-negative pathogen 2-we will check a UA and urine culture 3-patient will be started on Rocephin after UA is completed and adjust antibiotic further on the basis of culture We will follow on clinical condition and cultures to further adjust medication if needed Thank you for this consultation we will follow the patient along with you Dictation was produced using [employer] software. please excuse any grammatical, word or spelling errors. Time with Patient: Greater than 30
[2025-06-10] MEDS: FUROSEMIDE 40 MG TAB PO SCH (08:00)
[2025-06-10] MEDS: LOSARTAN 25 MG TAB PO SCH (08:00)
[2025-06-10 09:05] LABS: ALT 15 U/L (8-44); AST 28 U/L (13-35); Albumin 3.4 g/dL (3.8-4.9); Albumin/Globulin Ratio 1.55 Ratio (1.60-3.17); Alkaline Phosphatase 80 U/L (41-126); Anion Gap 10.50 mmol/L (4.00-12.00); BUN/Creat Ratio 24.36 Ratio (12.00-20.00); Blood Urea Nitrogen 34.1 mg/dL (9.0-27.0); Calcium 9.3 mg/dL (8.7-10.3); Carbon Dioxide 25.5 mmol/L (21.6-31.8); Chloride 102 mmol/L (96-109); Globulin 2.2 g/dL (1.6-3.3); Glucose 124 mg/dL (70-110); Potassium 4.4 mmol/L (3.5-5.5); Sodium 138 mmol/L (135-145); Total Protein 5.6 g/dL (6.2-8.2)
[2025-06-10 09:28] LABS: Basophils # (A) 0.05 X 10*3/uL (0.00-0.10); Basophils % (A) 0.5 %; Eosinophils # (A) 0.48 X 10*3/uL (0.04-0.35); Eosinophils % (A) 4.6 %; HCT 30.9 % (37.2-46.3); HGB 10.0 g/dL (12.0-15.0); Immature Grans, Automated 0.90 %; Lymphocytes # (A) 2.48 X 10*3/uL (0.90-5.00); Lymphocytes % (A) 23.7 %; MCH 32.8 pg (27.0-32.0); MCHC 32.4 g/dL (32.0-37.0); MCV 101.3 FL (80.0-97.0); Monocytes # (A) 1.39 X 10*3/uL (0.20-1.00); Monocytes % (A) 13.3 %; NRBC Per 100 WBC 0 X 10*3/uL (0.00-0.01); Neutrophils # (A) 5.97 X 10*3/uL (1.80-7.70); Neutrophils % (A) 57.0 %; Platelet Count 269 X 10*3/uL (140-440); RBC 3.05 X 10*6/uL (4.10-5.20); RDW 16.1 % (11.5-14.5); WBC 10.46 X 10*3/uL (4.50-10.00)
--- NOTE | 2025-06-10 12:12 | CT ---
EXAMINATION TYPE: CT hip LT wo con DATE OF EXAM: 06/10/2025 COMPARISON: None CLINICAL INDICATION: Female, 84 years old with history of left hip pain unable to ambulate; PHH, Left hip pain unable to ambulate. CT DLP: 478.2 mGycm Automated exposure control for dose reduction was used. FINDINGS: There is no fracture, dislocation or focal intraosseous abnormality of the left hip or hemipelvis. There is mild joint space narrowing and hypertrophic spurring left hip indicating mild osteoarthritis . The periarticular soft tissues are unremarkable with exception of moderate arterial sclerotic calci fications IMPRESSION: 1. NO ACUTE TRAUMA TO THE LEFT HIP OR LEFT HEMIPELVIS. 2. MILD OSTEOARTHRITIS OF THE LEFT HIP. [facility], , 06/10/2025 12:10 PM
--- NOTE | 2025-06-10 15:29 | P.PN ---
Subjective Progress Note Date: 06/10/25 84-year-old lady with past medical history significant for hypertension presented the ER for complaint of left knee pain. Patient was initially evaluated on 06/08 for a fall for which she presented the ER. Patient apparently was getting up from the toilet when she started to feel dizzy and ended up losing her balance and falling to the ground. Patient did not lose her consciousness. There was no trauma to her head. Patient at the time was complaining of left knee and right shoulder pain. Because of this fall, patient was evaluated the ER, imaging was done for left knee and shoulder x-rays which were negative for any acute fractures. Patient was discharged home but later ended up coming back to the hospital again because of worsening knee pain. Patient states she was unable to bear any weight. Patient was unable to take care of herself because of this worsening knee pain patient came to the ER. There is no complaint of shortness of breath. Patient denies any palpitation. There is no complaint of orthopnea or PND. Denies any nausea, vomiting abdominal pain. Patient denies any complaint of dizziness. There is no complaint of headache. Initial lab work done in the ER showed WBC 11.85, hemoglobin 10.4, platelet count 258, sodium 131, potassium 4.1, BUN 47, creatinine 1.48, glucose [address] left knee done showed no acute fractures or dislocation Patient admitted to internal medicine service 06/10. Patient seen and examined. Labs reviewed showing WBC 10.46, hemoglobin 10, sodium 138, potassium 4.4, BUN 34.1, creatinine 1.4. CT hip done showed mild osteoarthritis of left hip, no evidence of any fracture REVIEW OF SYSTEMS: CONSTITUTIONAL: No fever, no malaise,. CARDIOVASCULAR: No chest pain, no palpitations, no syncope. PULMONARY: No shortness of breath, no cough, GASTROINTESTINAL: No diarrhea, no nausea, no vomiting, no abdominal pain. NEUROLOGICAL: No headaches, no weakness, PHYSICAL EXAMINATION: GENERAL: The patient is alert and oriented x3, not in any acute distress. Well developed, well nourished. HEENT: Pupils are round and equally reacting to light. EOMI. No scleral icterus. No conjunctival pallor. Normocephalic, atraumatic. No pharyngeal erythema. No thyromegaly. CARDIOVASCULAR: S1 and S2 present. No murmurs, rubs, or gallops. PULMONARY: Chest is clear to auscultation, no wheezing or crackles. ABDOMEN: Soft, nontender, nondistended, normoactive bowel sounds. No palpable organomegaly. MUSCULOSKELETAL: No joint swelling or deformity. EXTREMITIES: No cyanosis, clubbing, or pedal edema. NEUROLOGICAL: Gross neurological examination did not reveal any focal deficits. SKIN: No rashes. Assessment and plan Left knee pain Fall Bug infestation bed Generalized weakness UTI History of hypertension Monitor vital signs Monitor CBC Monitor CMP Check orthostatics Order urine culture Continue IV Rocephin Continue Coreg, Lasix, losartan continue needed morphine and [place] [facility] following, recommending conservative management with pain control and therapy Consult PT and OT ID following Labs and medication were reviewed.. Continue same treatment. Continue with symptomatic treatment. Resume home medication. Monitor labs and vitals. DVT and GI prophylaxis. Further recommendations as per clinical course of the patient Dictation was produced using [employer] dictation software. please excuse any grammatical, word or spelling errors. Objective - Vital Signs Vital signs: Vital Signs Temp 97.7 F 06/10/25 07:21 Pulse 69 06/10/25 09:51 Resp 18 06/10/25 09:51 BP 177/73 06/10/25 07:21 Pulse Ox 97 06/10/25 07:21 FiO2 Intake & Output 06/09/25 06/10/25 06/10/25 18:59 06:59 18:59 Intake Total 178 180 Output Total 600 800 Balance -422 -800 180 Intake: Oral 178 180 Output: Urine 600 800 Other: Voiding Method External Catheter External Catheter # Bowel Movements 1 - Labs CBC & Chem 7: 06/10/25 04:54 06/10/25 04:54 Labs: Abnormal Lab Results - Last 24 Hours (Table) 06/09/25 06/10/25 06/10/25 Range/Units 18:35 04:54 04:54 WBC 10.46 H (4.50-10.00) X 10*3/uL RBC 3.05 L (4.10-5.20) X 10*6/uL Hgb 10.0 L (12.0-15.0) g/dL Hct 30.9 L (37.2-46.3) % MCV 101.3 H (80.0-97.0) FL MCH 32.8 H (27.0-32.0) pg RDW 16.1 H (11.5-14.5) % Immature Gran # 0.09 H (0.00-0.04) X 10*3/uL Monocytes # 1.39 H (0.20-1.00) X 10*3/uL Eosinophils # 0.48 H (0.04-0.35) X 10*3/uL BUN 34.1 H (9.0-27.0) mg/dL Est GFR (CKD-EPI) 37 L (>=60) BUN/Creatinine Ratio 24.36 H (12.00-20.00) Ratio Glucose 124 H (70-110) mg/dL Total Protein 5.6 L (6.2-8.2) g/dL Albumin 3.4 L (3.8-4.9) g/dL Albumin/Globulin Ratio 1.55 L (1.60-3.17) Ratio Urine Appearance Cloudy H (Clear) Urine Blood Trace H (Negative) Ur Leukocyte Esterase Large H (Negative) Urine WBC 57 H (0-5) /hpf Amorphous Sediment Rare H (None) /hpf Urine Bacteria Many H (None) /hpf
[2025-06-10] MEDS: MORPHINE SULFATE 4 MG/ML SYRINGE IV PRN (15:51)
[2025-06-10] MEDS: ZINC OXIDE PASTE (Z-GUARD) 1 APPLIC TOPICAL PRN (16:52)
--- NOTE | 2025-06-11 08:41 | P.PN ---
Subjective Progress Note Date: 06/10/25 This is a 84-year-old female who presented to the emergency department for continued left knee pain. She was evaluated earlier on 06/08/2025 after a fall. She stated she fell while getting off the toilet. She denied loss of consciousness. She denied hitting her head. 06/08/2025 x-rays of the left knee images were reviewed and showed no sign of acute cortical injury. Labs were obtained earlier as well which showed a UTI with elevated creatinine and has CKD. Alcohol level was also elevated at 91. She was eventually discharged home with her daughter and stated she was unable to walk on her left lower extremity due to the left knee pain. She returned on 06/08/2025. She stated she endorse that they are currently fumigating her building for bedbugs and is unknown if she has any on her at this time. Normally takes care of her own ADLs and ambulates without issue. Past medical history includes hypertension, hyperlipidemia, CAD. Patient is not on blood thinners. Uses walker at baseline. She was admitted to medicine and orthopedics was consulted for left knee pain. Patient has difficulty localizing pain. Patient appears to be a poor historian of her medical history. 06/10/2025 progress: X-rays of the left hip and AP pelvis on 06/09/2025 images were reviewed and due to poor quality of images due to body habitus, difficulty evaluating left hip. Patient states they continue to have left hip pain and left knee pain. Patient states the pain at their left hip is worse than at the left knee today. Patient states have continued to not be able to ambulate. Objective - Vital Signs Vital signs: Vital Signs Temp 97.7 F 06/10/25 07:21 Pulse 69 06/10/25 07:21 Resp 18 06/10/25 07:21 BP 177/73 06/10/25 07:21 Pulse Ox 97 06/10/25 07:21 FiO2 Intake & Output 06/09/25 06/10/25 06/10/25 18:59 06:59 18:59 Intake Total 178 Output Total 600 800 Balance -422 -800 Intake: Oral 178 Output: Urine 600 800 Other: Voiding Method External Catheter # Bowel Movements 1 - Exam Patient lying in bed. No acute distress. Head is normocephalic and atraumatic. Bilateral lower extremity exam: Inspection: No obvious deformity of the left hip. The left knee has moderate swelling with ecchymosis with no sign of infection, scars, or open lesions. Left leg has healed surgical incision consistent with prior vein graft harvest for bypass. Palpation: Patient has diffuse tenderness over the left knee. Patient has d iffuse tenderness over the left hip. Range of motion: Patient had pain with passive range of motion of the left knee. Patient had pain with passive range of motion of the left hip. Calves were soft to compression, negative Homans' sign. Vascular: Dorsalis pedis pulse 2+ bilaterally. Capillary refill under 2 seconds in all toes. Sensation: grossly intact to light touch throughout the bilateral lower extremities. - Labs CBC & Chem 7: 06/10/25 04:54 06/10/25 04:54 Labs: Abnormal Lab Results - Last 24 Hours (Table) 06/09/25 06/10/25 Range/Units 18:35 04:54 BUN 34.1 H (9.0-27.0) mg/dL Est GFR (CKD-EPI) 37 L (>=60) BUN/Creatinine Ratio 24.36 H (12.00-20.00) Ratio Glucose 124 H (70-110) mg/dL Total Protein 5.6 L (6.2-8.2) g/dL Albumin 3.4 L (3.8-4.9) g/dL Albumin/Globulin Ratio 1.55 L (1.60-3.17) Ratio Urine Appearance Cloudy H (Clear) Urine Blood Trace H (Negative) Ur Leukocyte Esterase Large H (Negative) Urine WBC 57 H (0-5) /hpf Amorphous Sediment Rare H (None) /hpf Urine Bacteria Many H (None) /hpf Assessment and Plan Assessment: Status post ground-level fall on 06/08/2025 Left knee pain Left hip pain Multiple medical problems Plan: 06/08/2025 CT without contrast left knee images were reviewed and report was reviewed and agree with report no sign of acute cortical injury. Left knee pain: - Continue conservative management at this time. Rest, ice, elevation, and pain control per primary team. - Patient can follow-up in our office for her left knee on an as-needed basis. Left hip pain: - Patient is status post ground-level fall on 06/08/2025 and has been unable to ambulate due to pain. 06/09/2025 AP pelvis and left hip x-rays difficult to view due to body habitus. Plan obtain left hip CT. Further plan pending. - 06/11/2025 update: 06/10/2025 CT hip left without contrast images were reviewed and I agree with the impression of no acute trauma to the left hip or left hemipelvis. Mild osteoarthritis of the left hip. No acute orthopedic surgical interventions are recommended. Recommend treat conservatively with rest, ice, PT/OT, and pain medication. - Patient can follow-up in our office for her left hip on an as-needed basis. We will sign off at this time. Please do not hesitate to ask us any questions if needed. Thank you for this consult. Dictation was produced using [employer] software, please excuse any grammatical, word or spelling errors.
[2025-06-11 11:32] VITALS: BMI 25.7
--- NOTE | 2025-06-11 14:27 | P.PN ---
Subjective Progress Note Date: 06/11/25 84-year-old lady with past medical history significant for hypertension presented the ER for complaint of left knee pain. Patient was initially evaluated on 06/08 for a fall for which she presented the ER. Patient apparently was getting up from the toilet when she started to feel dizzy and ended up losing her balance and falling to the ground. Patient did not lose her consciousness. There was no trauma to her head. Patient at the time was complaining of left knee and right shoulder pain. Because of this fall, patient was evaluated the ER, imaging was done for left knee and shoulder x-rays which were negative for any acute fractures. Patient was discharged home but later ended up coming back to the hospital again because of worsening knee pain. Patient states she was unable to bear any weight. Patient was unable to take care of herself because of this worsening knee pain patient came to the ER. There is no complaint of shortness of breath. Patient denies any palpitation. There is no complaint of orthopnea or PND. Denies any nausea, vomiting abdominal pain. Patient denies any complaint of dizziness. There is no complaint of headache. Initial lab work done in the ER showed WBC 11.85, hemoglobin 10.4, platelet count 258, sodium 131, potassium 4.1, BUN 47, creatinine 1.48, glucose [address] left knee done showed no acute fractures or dislocation Patient admitted to internal medicine service 06/10. Patient seen and examined. Labs reviewed showing WBC 10.46, hemoglobin 10, sodium 138, potassium 4.4, BUN 34.1, creatinine 1.4. CT hip done showed mild osteoarthritis of left hip, no evidence of any fracture 14. Patient seen and examined. Still complaining of left hip pain. PT and OT have tried to work with her but she has pain and pain. REVIEW OF SYSTEMS: CONSTITUTIONAL: No fever, no malaise,. CARDIOVASCULAR: No chest pain, no palpitations, no syncope. PULMONARY: No shortness of breath, no cough, GASTROINTESTINAL: No diarrhea, no nausea, no vomiting, no abdominal pain. NEUROLOGICAL: No headaches, no weakness, PHYSICAL EXAMINATION: GENERAL: The patient is alert and oriented x3, not in any acute distress. Well developed, well nourished. HEENT: Pupils are round and equally reacting to light. EOMI. No scleral icterus. No conjunctival pallor. Normocephalic, atraumatic. No pharyngeal erythema. No thyromegaly. CARDIOVASCULAR: S1 and S2 present. No murmurs, rubs, or gallops. PULMONARY: Chest is clear to auscultation, no wheezing or crackles. ABDOMEN: Soft, nontender, nondistended, normoactive bowel sounds. No palpable organomegaly. MUSCULOSKELETAL: No joint swelling or deformity. EXTREMITIES: No cyanosis, clubbing, or pedal edema. NEUROLOGICAL: Gross neurological examination did not reveal any focal deficits. SKIN: No rashes. Assessment and plan Left knee pain Fall Bug infestation bed Generalized weakness UTI History of hypertension Monitor vital signs Monitor CBC Monitor CMP Check orthostatics Order urine culture Continue IV Rocephin Continue Coreg, Lasix, losartan continue needed morphine and [facility] following, recommending conservative management with pain control and therapy PT and OT follow-up ID following Labs and medication were reviewed.. Continue same treatment. Continue with symptomatic treatment. Resume home medication. Monitor labs and vitals. DVT and GI prophylaxis. Further recommendations as per clinical course of the patient Dictation was produced using [employer] dictation software. please excuse any grammatical, word or spelling errors. Objective - Vital Signs Vital signs: Vital Signs Temp 98.1 F 06/11/25 07:01 Pulse 68 06/11/25 07:01 Resp 18 06/11/25 07:01 BP 130/76 06/11/25 07:01 Pulse Ox 94 L 06/11/25 07:01 FiO2 Intake & Output 06/10/25 06/11/25 06/11/25 18:59 06:59 18:59 Intake Total 400 180 Output Total 1000 Balance 400 -1000 180 Weight 65.771 kg Intake: Oral 400 180 Output: Urine 1000 Other: Voiding Method External Catheter External Catheter External Catheter - Labs CBC & Chem 7: 06/10/25 04:54 06/10/25 04:54 Labs: Microbiology - Last 24 Hours (Table) 06/09/25 18:35 Urine Culture - Final Urine,Voided
--- NOTE | 2025-06-11 16:46 | P.PN ---
Subjective Progress Note Date: 06/11/25 Principal diagnosis: reason for follow-up is UTI Patient is a 84-year-old female with a past medical history significant for Coronary Artery Disease (CAD), CVA/TIA, Hyperlipidemia, Hypertension, Myocardial Infarction (CT), Osteoarthritis (OA), Vascular Disorder presenting to the hospital for evaluation of left knee pain in this patient who did have a fall patient also have significant urinary symptoms positive UA prompted this consultation. On today's evaluation that is 06/11/2025 the patient remains to be afebrile patient is breathing comfortably on room air no chest pain shortness of breath or cough no abdominal pain no diarrhea impression improving the urinary symptoms. No new lab has been obtained today cultures so far reported negative Objective - Vital Signs Vital signs: Vital Signs Temp 98.1 F 06/11/25 07:01 Pulse 68 06/11/25 07:01 Resp 18 06/11/25 07:01 BP 130/76 06/11/25 07:01 Pulse Ox 94 L 06/11/25 07:01 FiO2 Intake & Output 06/10/25 06/11/25 06/11/25 18:59 06:59 18:59 Intake Total 400 180 Output Total 1000 Balance 400 -1000 180 Weight 65.771 kg Intake: Oral 400 180 Output: Urine 1000 Other: Voiding Method External Catheter External Catheter External Catheter - Exam GENERAL DESCRIPTION: An elderly female lying in bed in no distress RESPIRATORY SYSTEM: Unlabored breathing , decreased breath sounds at bases HEART: S1 S2 regular rate and rhythm , ABDOMEN: Soft , no tenderness EXTREMITIES: No edema feet - Labs CBC & Chem 7: 06/10/25 04:54 06/10/25 04:54 Labs: Microbiology - Last 24 Hours (Table) 06/09/25 18:35 Urine Culture - Final Urine,Voided Assessment and Plan (1) Leukocytosis Current Visit: Yes Status: Acute Code(s): D72.829 - ELEVATED WHITE BLOOD CELL COUNT, UNSPECIFIED SNOMED Code(s): 358831449 (2) Urinary tract infection Current Visit: Yes Status: Acute Code(s): N39.0 - URINARY TRACT INFECTION, SITE NOT SPECIFIED SNOMED Code(s): 84869118 Plan: 1patient presented to the hospital weakness did have a fall patient also having significant urinary symptoms of burning frequency suprapubic pain with elevated white count concerning for symptomatic UTI likely from enteric gram-negative pathogen 2-we will check a UA and urine culture 3- patient did have improvement in her white count as well as urine symptoms continue with Rocephin while inpatient if the culture negative there will be no need for antibiotic on discharge Dictation was produced using [employer] dictation software. please excuse any grammatical, word or spelling errors. Time with Patient: Less than 30
--- NOTE | 2025-06-11 16:46 | P.PN ---
Subjective Progress Note Date: 06/10/25 Principal diagnosis: reason for follow-up is UTI Patient is a 84-year-old female with a past medical history significant for Coronary Artery Disease (CAD), CVA/TIA, Hyperlipidemia, Hypertension, Myocardial Infarction ([place]), Osteoarthritis (OA), Vascular Disorder presenting to the hospital for evaluation of left knee pain in this patient who did have a fall patient also have significant urinary symptoms positive UA prompted this consultation. On today's evaluation that is 06/10/2025, Patient is afebrile patient is currently on room air and denies having any shortness of breath, the patient denies any chest pain or cough, the patient denies any nausea vomiting did not have any abdominal pain and no diarrhea, mention improvement her urinary symptoms. Patient white count is down to 10.46, creatinine is 1.4 urine is positive cultures are pending Objective - Vital Signs Vital signs: Vital Signs Temp 97.8 F 06/10/25 14:44 Pulse 72 06/10/25 14:44 Resp 18 06/10/25 14:44 BP 173/76 06/10/25 14:44 Pulse Ox 99 06/10/25 14:44 FiO2 Intake & Output 06/09/25 06/10/25 06/10/25 18:59 06:59 18:59 Intake Total 178 400 Output Total 600 800 Balance -422 -800 400 Intake: Oral 178 400 Output: Urine 600 800 Other: Voiding Method External Catheter External Catheter # Bowel Movements 1 - Exam GENERAL DESCRIPTION: An elderly female lying in bed in no distress RESPIRATORY SYSTEM: Unlabored breathing , decreased breath sounds at bases HEART: S1 S2 regular rate and rhythm , ABDOMEN: Soft , no tenderness EXTREMITIES: No edema feet - Labs CBC & Chem 7: 06/10/25 04:54 06/10/25 04:54 Labs: Abnormal Lab Results - Last 24 Hours (Table) 06/09/25 06/10/25 06/10/25 Range/Units 18:35 04:54 04:54 WBC 10.46 H (4.50-10.00) X 10*3/uL RBC 3.05 L (4.10-5.20) X 10*6/uL Hgb 10.0 L (12.0-15.0) g/dL Hct 30.9 L (37.2-46.3) % MCV 101.3 H (80.0-97.0) FL MCH 32.8 H (27.0-32.0) pg RDW 16.1 H (11.5-14.5) % Immature Gran # 0.09 H (0.00-0.04) X 10*3/uL Monocytes # 1.39 H (0.20-1.00) X 10*3/uL Eosinophils # 0.48 H (0.04-0.35) X 10*3/uL BUN 34.1 H (9.0-27.0) mg/dL Est GFR (CKD-EPI) 37 L (>=60) BUN/Creatinine Ratio 24.36 H (12.00-20.00) Ratio Glucose 124 H (70-110) mg/dL Total Protein 5.6 L (6.2-8.2) g/dL Albumin 3.4 L (3.8-4.9) g/dL Albumin/Globulin Ratio 1.55 L (1.60-3.17) Ratio Urine Appearance Cloudy H (Clear) Urine Blood Trace H (Negative) Ur Leukocyte Esterase Large H (Negative) Urine WBC 57 H (0-5) /hpf Amorphous Sediment Rare H (None) /hpf Urine Bacteria Many H (None) /hpf Assessment and Plan (1) Leukocytosis Current Visit: Yes Status: Acute Code(s): D72.829 - ELEVATED WHITE BLOOD CELL COUNT, UNSPECIFIED SNOMED Code(s): 239009006 (2) Urinary tract infection Current Visit: Yes Status: Acute Code(s): N39.0 - URINARY TRACT INFECTION, SITE NOT SPECIFIED SNOMED Code(s): 18041506 Plan: 1patient presented to the hospital weakness did have a fall patient also having significant urinary symptoms of burning frequency suprapubic pain with elevated white count concerning for symptomatic UTI likely from enteric gram-negative pathogen 2-we will check a UA and urine culture 3- patient did have improvement in her white count as well as urine decided to continue with Rocephin while waiting for the culture to finalize Dictation was produced using [employer] software. please excuse any grammatical, word or spelling errors. Time with Patient: Less than 30
--- NOTE | 2025-06-12 14:28 | P.PN ---
Subjective Progress Note Date: 06/12/25 84-year-old lady with past medical history significant for hypertension presented the ER for complaint of left knee pain. Patient was initially evaluated on 06/08 for a fall for which she presented the ER. Patient apparently was getting up from the toilet when she started to feel dizzy and ended up losing her balance and falling to the ground. Patient did not lose her consciousness. There was no trauma to her head. Patient at the time was complaining of left knee and right shoulder pain. Because of this fall, patient was evaluated the ER, imaging was done for left knee and shoulder x-rays which were negative for any acute fractures. Patient was discharged home but later ended up coming back to the hospital again because of worsening knee pain. Patient states she was unable to bear any weight. Patient was unable to take care of herself because of this worsening knee pain patient came to the ER. There is no complaint of shortness of breath. Patient denies any palpitation. There is no complaint of orthopnea or PND. Denies any nausea, vomiting abdominal pain. Patient denies any complaint of dizziness. There is no complaint of headache. Initial lab work done in the ER showed WBC 11.85, hemoglobin 10.4, platelet count 258, sodium 131, potassium 4.1, BUN 47, creatinine 1.48, glucose [address] left knee done showed no acute fractures or dislocation Patient admitted to internal medicine service 06/10. Patient seen and examined. Labs reviewed showing WBC 10.46, hemoglobin 10, sodium 138, potassium 4.4, BUN 34.1, creatinine 1.4. CT hip done showed mild osteoarthritis of left hip, no evidence of any fracture 14. Patient seen and examined. Still complaining of left hip pain. PT and OT have tried to work with her but she has pain and pain. 06/12. Patient seen and examined. PT and OT evaluated the patient, patient states she doing better better. REVIEW OF SYSTEMS: CONSTITUTIONAL: No fever, no malaise,. CARDIOVASCULAR: No chest pain, no palpitations, no syncope. PULMONARY: No shortness of breath, no cough, GASTROINTESTINAL: No diarrhea, no nausea, no vomiting, no abdominal pain. NEUROLOGICAL: No headaches, no weakness, PHYSICAL EXAMINATION: GENERAL: The patient is alert and oriented x3, not in any acute distress. Well developed, well nourished. HEENT: Pupils are round and equally reacting to light. EOMI. No scleral icterus. No conjunctival pallor. Normocephalic, atraumatic. No pharyngeal erythema. No thyromegaly. CARDIOVASCULAR: S1 and S2 present. No murmurs, rubs, or gallops. PULMONARY: Chest is clear to auscultation, no wheezing or crackles. ABDOMEN: Soft, nontender, nondistended, normoactive bowel sounds. No palpable organomegaly. MUSCULOSKELETAL: No joint swelling or deformity. EXTREMITIES: No cyanosis, clubbing, or pedal edema. NEUROLOGICAL: Gross neurological examination did not reveal any focal deficits. SKIN: No rashes. Assessment and plan Left knee pain Fall Bug infestation bed Generalized weakness UTI History of hypertension Monitor vital signs Monitor CBC Monitor CMP Check orthostatics Order urine culture Continue IV Rocephin Continue Coreg, Lasix, losartan continue needed morphine and [facility] following, recommending conservative management with pain control and therapy PT and OT follow-up ID following Labs and medication were reviewed.. Continue same treatment. Continue with symptomatic treatment. Resume home medication. Monitor labs and vitals. DVT and GI prophylaxis. Further recommendations as per clinical course of the patient Dictation was produced using [employer] dictation software. please excuse any grammatical, word or spelling errors. Objective - Vital Signs Vital signs: Vital Signs Temp 98.5 F 06/12/25 07:32 Pulse 70 06/12/25 07:32 Resp 16 06/12/25 07:32 BP 116/59 06/12/25 07:32 Pulse Ox 97 06/12/25 07:32 FiO2 Intake & Output 06/11/25 06/12/25 06/12/25 18:59 06:59 18:59 Intake Total 298 240 Output Total 550 250 Balance -252 -250 240 Weight 65.771 kg Intake: Oral 298 240 Output: Urine 550 250 Other: Voiding Method External Catheter External Catheter External Catheter - Labs CBC & Chem 7: 06/10/25 04:54 06/10/25 04:54 Labs: Microbiology - Last 24 Hours (Table) 06/09/25 18:35 Urine Culture - Final Urine,Voided
--- NOTE | 2025-06-12 16:15 | P.PN ---
Subjective Progress Note Date: 06/12/25 Principal diagnosis: reason for follow-up is UTI Patient is a 84-year-old female with a past medical history significant for Coronary Artery Disease (CAD), CVA/TIA, Hyperlipidemia, Hypertension, Myocardial Infarction ([place]), Osteoarthritis (OA), Vascular Disorder presenting to the hospital for evaluation of left knee pain in this patient who did have a fall patient also have significant urinary symptoms positive UA prompted this consultation. On today's evaluation that is 06/12/2025, Patient is afebrile this morning patient denies having any chest pain shortness of breath or cough, the patient is currently on room air, patient denies any abdominal pain no diarrhea no nausea no vomiting. No new lab has been obtained today urine culture have been negative Objective - Vital Signs Vital signs: Vital Signs Temp 98.4 F 06/12/25 13:50 Pulse 68 06/12/25 13:50 Resp 16 06/12/25 13:50 BP 132/82 06/12/25 13:50 Pulse Ox 98 06/12/25 13:50 FiO2 Intake & Output 06/11/25 06/12/25 06/12/25 18:59 06:59 18:59 Intake Total 298 480 Output Total 550 250 Balance -252 -250 480 Weight 65.771 kg Intake: Oral 298 480 Output: Urine 550 250 Other: Voiding Method External Catheter External Catheter External Catheter - Exam GENERAL DESCRIPTION: An elderly female lying in bed in no distress RESPIRATORY SYSTEM: Unlabored breathing , decreased breath sounds at bases HEART: S1 S2 regular rate and rhythm , ABDOMEN: Soft , no tenderness EXTREMITIES: No edema feet - Labs CBC & Chem 7: 06/10/25 04:54 06/10/25 04:54 Assessment and Plan (1) Leukocytosis Current Visit: Yes Status: Acute Code(s): D72.829 - ELEVATED WHITE BLOOD CELL COUNT, UNSPECIFIED SNOMED Code(s): 807865786 (2) Urinary tract infection Current Visit: Yes Status: Acute Code(s): N39.0 - URINARY TRACT INFECTION, SITE NOT SPECIFIED SNOMED Code(s): 56076774 Plan: 1patient presented to the hospital weakness did have a fall patient also having significant urinary symptoms of burning frequency suprapubic pain with elevated white count concerning for symptomatic UTI likely from enteric gram-negative pathogen 2-we will check a UA and urine culture 3- patient did have improvement in her white count as well as urine symptoms continue however urine culture have been negative continue Rocephin which can be discontinued on discharge Dictation was produced using [employer] dictation software. please excuse any grammatical, word or spelling errors. Time with Patient: Less than 30
[2025-06-13 07:54] VITALS: RESP 16
--- NOTE | 2025-06-13 13:08 | P.DS ---
Providers Date of admission: 06/09/25 03:07 Expected date of discharge: 06/13/25 Attending physician: Merle Bejarano Consults: 06/09/25 03:05 Consult Physician Routine Consulting Provider: Mitchell Tavares Consult Reason/Comments: intractable left knee pain post fall Do you want consulting provider notified?: Yes 06/09/25 12:25 Consult Physician Routine Consulting Provider: Chel Parekh Consult Reason/Comments: UTI Do you want consulting provider notified?: Yes, Notify in am Primary care physician: Stated None Hospital Course: Discharge diagnoses; Left knee pain Fall bed Bug infestation Generalized weakness UTI History of hypertension Hospital course; 84-year-old lady with past medical history significant for hypertension presented the ER for complaint of left knee pain. Patient was initially evaluated on 06/08 for a fall for which she presented the ER. Patient apparently was getting up from the toilet when she started to feel dizzy and ended up losing her balance and falling to the ground. Patient did not lose her consciousness. There was no trauma to her head. Patient at the time was complaining of left knee and right shoulder pain. Because of this fall, patient was evaluated the ER, imaging was done for left knee and shoulder x-rays which were negative for any acute fractures. Patient was discharged home but later ended up coming back to the hospital again because of worsening knee pain. Patient states she was unable to bear any weight. Patient was unable to take care of herself because of this worsening knee pain patient came to the ER. There is no complaint of shortness of breath. Patient denies any palpitation. There is no complaint of orthopnea or PND. Denies any nausea, vomiting abdominal pain. Patient denies any complaint of dizziness. There is no complaint of headache. Initial lab work done in the ER showed WBC 11.85, hemoglobin 10.4, platelet count 258, sodium 131, potassium 4.1, BUN 47, creatinine 1.48, glucose [address] left knee done showed no acute fractures or dislocation Patient admitted to internal medicine service 06/10. Patient seen and examined. Labs reviewed showing WBC 10.46, hemoglobin 10, sodium 138, potassium 4.4, BUN 34.1, creatinine 1.4. CT hip done showed mild osteoarthritis of left hip, no evidence of any fracture 14. Patient seen and examined. Still complaining of left hip pain. PT and OT have tried to work with her but she has pain and pain. 06/12. Patient seen and examined. PT and OT evaluated the patient, patient states she doing better better. 06/13. Patient seen and examined. discussed with her regarding PT and OT recommendation of needing to go to rehab, patient at this time does not want to go to rehab, explained to her That if she does not go to rehab then she probably would end up going home with home care. Patient keeps insisting to stay in hospital every day without making a decision about rehab. Patient is medically stable for discharge PHYSICAL EXAMINATION: GENERAL: The patient is alert and oriented x3, not in any acute distress. Well developed, well nourished. HEENT: Pupils are round and equally reacting to light. EOMI. No scleral icterus. No conjunctival pallor. Normocephalic, atraumatic. No pharyngeal erythema. No thyromegaly. CARDIOVASCULAR: S1 and S2 present. No murmurs, rubs, or gallops. PULMONARY: Chest is clear to auscultation, no wheezing or crackles. ABDOMEN: Soft, nontender, nondistended, normoactive bowel sounds. No palpable organomegaly. MUSCULOSKELETAL: No joint swelling or deformity. EXTREMITIES: No cyanosis, clubbing, or pedal edema. NEUROLOGICAL: Gross neurological examination did not reveal any focal deficits. SKIN: No rashes. Dictation was produced using [employer] dictation software. please excuse any grammatical, word or spelling errors. Patient Condition at Discharge: Stable Plan - Discharge Summary Discharge Rx Participant: No New Discharge Prescriptions: New HYDROcodone/APAP 5-325MG [Alvin 5-325] 1 each PO Q6HR PRN 3 Days #12 tab PRN Reason: Moderate Pain (Scale 4 To 6) Continue carvediloL [Coreg] 3.125 mg PO BID #60 tablet Losartan [Cozaar] 25 mg PO DAILY Furosemide [Lasix] 40 mg PO DAILY Discontinued cefuroxime axetiL [Ceftin] 500 mg PO DIRECTED Discharge Medication List carvediloL [Coreg] 3.125 mg PO BID #60 tablet 06/09/24 [Rx] Furosemide [Lasix] 40 mg PO DAILY 06/09/25 [History] Losartan [Cozaar] 25 mg PO DAILY 06/09/25 [History] HYDROcodone/APAP 5-325MG [Alvin 5-325] 1 each PO Q6HR PRN 3 Days #12 tab 06/13/25 [Rx] Follow up Appointment(s)/Referral(s): [facility], [NON[facility]] - As Needed None,Stated [Primary Care Provider] - 1-2 days Discharge Disposition: HOME WITH HOME HEALTH SERVICES
[2025-06-13 14:28] VITALS: BP 159/92; PULSE 81; TEMP 97.7
== END 2025-06-13 16:12 | disposition home health service (06) ==
LOC: EC 22:41 → 6NMEDSUR 06-09 03:07
PROVIDERS: ADMIT Hospitalist; ATTEND Hospitalist
DX: M25.562 Pain in left knee (principal); M25.552 Pain in left hip; W18.11XA Fall from or off toilet without subsequent striking against object, initial encounter; N39.0 Urinary tract infection, site not specified; I25.10 Atherosclerotic heart disease of native coronary artery without angina pectoris; I12.9 Hypertensive chronic kidney disease with stage 1 through stage 4 chronic kidney disease, or unspecified chronic kidney disease; N18.9 Chronic kidney disease, unspecified; E78.5 Hyperlipidemia, unspecified; R73.03 Prediabetes; I25.2 Old myocardial infarction; Z59.19 Other inadequate housing; Z86.73 Personal history of transient ischemic attack (TIA), and cerebral infarction without residual deficits; Z87.891 Personal history of nicotine dependence; Z95.1 Presence of aortocoronary bypass graft; Z79.899 Other long term (current) drug therapy
CPT/HCPCS: 96376 ×4; 96365; 96366 ×2; 96375; 99284; 36415 ×2; 97162; 97166; 80053 ×2; 85025 ×2; 81001; 87086; 72170; 73502; 73700 ×2; G0378 ×5; J2270 ×5; J0696 ×4